=== PATIENT | female | born 1955 | race Caucasian/White ===

== ENCOUNTER 2016-04-27 00:58 | Inpatient (IN) | payer OTHER ==
[~2016-04-27] VITALS: Ht 157.5 cm; Wt 83.0 kg
[~2016-04-27 00:58] MED LIST: UNRESOLVED CLARIFICATION ENTRY XX SCH
[2016-04-27] MEDS ORDERED: IPRATROPIUM 0.5MG/ALBUTEROL 2.5MG INH SOL UD 3ML (DUONEB)(J7620) As Ordered ONE ×2 (01:23→04:25)
[2016-04-27] MEDS ORDERED: ASPIRIN 81 MG CHEW TABLET As Ordered ONE (01:24)
[2016-04-27] MEDS ORDERED: methylPREDNISolone INJ 125 MG/2 ML VIAL (J2930) As Ordered ONE (01:24)
[2016-04-27 01:31] LABS: BASO % 0.5 % (0.0-1.0); EOS # 0.1 K/mm3 (0.0-0.50); EOS % 0.7 % (0.0-3.0); LARGE UNSTAINED CELL # 0.2 K/mm3 (0.0-0.4); LARGE UNSTAINED CELL % 1.8 % (0.0-4.0); LYMPH # 1.2 K/mm3 (1.5-4.5); MEAN CORPUSCULAR HEMOGLOBIN 28.9 pg (27.0-33.0); MEAN CORPUSCULAR VOLUME 87.6 fl (80.0-96.0); MONO # 0.3 K/mm3 (0.0-0.8); MONO % 2.6 % (0.0-5.0); NEUTROPHILS # 8.2 K/mm3 (1.8-7.7); NEUTROPHILS % 82.4 % (36.0-66.0); PLATELET COUNT, AUTOMATED 304 k/mm3 (150-450); RED CELL DISTRIBUTION WIDTH 13.4 % (11.5-14.5); WHITE BLOOD COUNT 9.9 K/mm3 (4.0-10.0)
[2016-04-27 01:37] LABS: ABG BASE EXCESS -0.2 (-2.0-2.0); ABG DEVICE NASAL CANN; ABG HCO3 26.9 MEQ/L (22.0-26.0); ABG PARTIAL PRESSURE CO2 53.8 mmHg (35.0-45.0); ABG PARTIAL PRESSURE O2 75.8 mmHg (75.0-100.0); ABG STANDARD HCO3 24.3 MEQ/L (22.0-26.0); ABG TOTAL CO2 28.6 MEQ/L (23.0-31.0); ABG pH (ARTERIAL) 7.317 UNITS (7.350-7.450)
[2016-04-27 01:57] LABS: ANION GAP 10 MEQ/L (8-16); BLOOD UREA NITROGEN 10 MG/DL (7-18); CALCIUM LEVEL 8.5 MG/DL (8.8-10.2); CARBON DIOXIDE LEVEL 26 MEQ/L (21-32); CHLORIDE LEVEL 104 MEQ/L (98-107); CREATININE FOR GFR 0.98 MG/DL (0.55-1.02); GLOMERULAR FILTRATION RATE > 60.0 (>45); GLUCOSE, FASTING 141 MG/DL (80-110); POTASSIUM SERUM 3.8 MEQ/L (3.5-5.1); SODIUM LEVEL 140 MEQ/L (136-145)
--- NOTE | 2016-04-27 02:44 | REP ---
Clinical: Chest pain . Comparison: 08/30/2015 . Findings: The mediastinum and cardiac silhouette are stable and within normal limits for portable technique. The lung deleon are clear without acute consolidation, effusion, or pneumothorax. Skeletal structures are intact. Impression: Normal portable chest x-ray Signed by Desmond Vivas MD 04/27/2016 02:35 A
[2016-04-27] MEDS ORDERED: SYNT175T2 PO (03:27)
[2016-04-27] MEDS ORDERED: BUPR15TASR PO (03:27)
[2016-04-27] MEDS ORDERED: ALBU17IN INH (03:27)
[2016-04-27] MEDS ORDERED: FURO40TA2 PO (03:27)
[2016-04-27] MEDS ORDERED: IPRATROPIUM 0.5MG/ALBUTEROL 2.5MG INH SOL UD 3ML (DUONEB)(J7620) NEB PRN (03:30)
[2016-04-27] MEDS ORDERED: FUROSEMIDE 20 MG/2 ML VIAL (J1940) IV ONE (03:30)
[2016-04-27] MEDS ORDERED: LOSA50TA20 PO (03:42)
--- NOTE | 2016-04-27 04:04 | HPEPDOC ---
General Date of Admission Primary Care Physician: LIGIA HINOJOSA DO Attending Physician: GENNA RIGGINS Chief Complaint The patient is a 60-year-old female admitted with a reason for visit of Breathing Difficulty Source: Patient Exam Limitations: No limitations History of Present Illness Ms. Conley is a 60-year-old female who presented to the emergency department with progressive shortness of breath. She states that she, her , her son, and her granddaughter have all come down with a respiratory illness over the weekend. The remainder of them have been improving, however she has been getting progressively worse, and this has settled into her chest. She mentions that this happened last year's well, and she went to the urgent care where she received steroids and a Ventolin inhaler and improved, it was her plan to go to urgent care in the morning, but she is feeling so poorly she decided to be seen earlier. At baseline she is usually able to accomplish all of her tasks of daily living without any restrictions, she does not walk with any supportive devices, she does not use oxygen at home. She is now so short of breath, that she is unable to even take a few steps. As a matter fact she cannot speak in full sentences at this time, and she is continually coughing throughout our interview. She does admit that she is able to bring up some yellowish stuff with her cough , however she does have a chronic cough that also is productive on occasion. She has been told in the past that she has COPD, but she is not on any maintenance inhalers, and unless she gets sick, she essentially never uses her rescue inhaler, it has been about one year since the last time she has used her rescue inhaler. She does believe that she may have some subjective fevers and chills, but does not have a thermometer at home. She has not had any night sweats. Normally she is able to sleep laying down, but she has experienced orthopnea in the past few days, but she does admit that she has not been taking her home dose of Lasix for the past few days either because she has been feeling poorly. Her unrelenting cough has caused her to have some nausea, but she has not vomited. Otherwise, the remainder of her review of systems is negative. Home Medications Scheduled Bupropion HCl (Bupropion HCl Sr) 150 Mg Tab 150 MG PO DAILY (Reported) Furosemide (Furosemide) 40 Mg Tab 40 MG PO BID (Reported) Levothyroxine Sodium (Synthroid) 175 Mcg Tab 175 MCG PO DAILY (Reported) Losartan Potassium (Losartan Potassium) 50 Mg Tab 50 MG PO DAILY (Reported) Scheduled PRN Albuterol Sulfate (Ventolin Hfa) 200 Puff/8 Gm Aers 2 PUFF INH Q4H PRN PRN SHORTNESS OF BREATH (Reported) Allergies Coded Allergies: No Known Allergies (Unverified , 04/27/16) Past Medical History Medical History COPD Hypothyroidism Chronic bilateral lower extremity edema Surgical History Tubal ligation Right wrist surgery for a traumatic broken wrist Right elbow surgery for what sounds like a nerve decompression Family History Family History She has 6 siblings, all of whom are healthy with the exception of one sister who has COPD. Her father drowned in his 80s, his boat capsized and he didn't know how to swim. Her mother in her 80s, she was a diabetic. Otherwise, she has 4 children who are all healthy. Social History * Smoker: current smoker (still smoking about three quarters of a pack per day. She started smoking at the age of 15) Alcohol: denies Drugs: denies Recent Travel/Sick Contacts: Reports: Recent sick contacts, Denies: Recent travel Psychosocial History: No pertinent psych hx Review of Symptoms Other systems Please see the HPI for review of systems. Physical Examination General Exam: Positive: Alert, Cooperative, Moderate Distress, Other (unable to speak in full sentences, however, she is only using accessory muscles when the monitor sounds an alert for low oxygen) Eye Exam: Positive: Conjunctiva & lids normal, EOMI, Negative: Sclera icteric ENT Exam: Positive: Atraumatic, Mucous membr. moist/pink, Pharynx Normal Neck Exam: Positive: Supple, Negative: JVD, thyromegaly Chest Exam: Positive: Other (prolonged expiratory phase), Wheezing (moderate expiratory wheezing in all lung deleon) Heart Exam: Positive: Normal S1, Normal S2, Rate Normal, Regular Rhythm, Negative: Murmurs, Rubs Telemetry: Positive: No significant arrhythmia Abdomen Exam: Positive: Normal bowel sounds, Soft, Negative: Hepatospenomegaly, Tenderness Extremity Exam: Positive: Edema (1+ pitting edema to just above the ankles), Normal pulses, Negative: Clubbing, Cyanosis, Tenderness Skin Exam: Positive: Nl turgor and temperature, Negative: Breakdown, Lesion Psych Exam: Positive: Memory Intact, Mental status NL, Mood NL, Oriented x 3, Negative: Anxiety Vital Signs Blood pressure 138/65, pulse 108, respirations 32, temperature 98.6, pulse ox is 91% on 4 L nasal cannula, weight 84 kg, height 5 feet 2 inches, body mass index 34 Laboratory Data Labs 24H Laboratory Tests 2 04/27/16 01:23: Anion Gap 10, B-Type Natriuretic Peptide 43.3, White Blood Count 9.9, Red Blood Count 4.79, Hemoglobin 13.9, Hematocrit 41.9, Mean Corpuscular Volume 87.6, Mean Corpuscular Hemoglobin 28.9, Mean Corpuscular Hemoglobin Concent 33.0, Red Cell Distribution Width 13.4, Platelet Count 304, Neutrophils (%) (Auto) 82.4H, Lymphocytes (%) (Auto) 12.0L, Monocytes (%) (Auto) 2.6, Eosinophils (%) (Auto) 0.7, Basophils (%) (Auto) 0.5, Neutrophils # (Auto) 8.2H, Lymphocytes # (Auto) 1.2L, Monocytes # (Auto) 0.3, Eosinophils # (Auto) 0.1, Basophils # (Auto) 0.0, Blood Urea Nitrogen 10, Creatinine 0.98, Sodium Level 140, Potassium Level 3.8, Chloride Level 104, Carbon Dioxide Level 26, Calcium Level 8.5L, Total Creatine Kinase 213H, Creatine Kinase MB 3.2, Creatine Kinase MB Relative Index 1.50, Glomerular Filtration Rate > 60.0, Lactic Acid Level 1.6, Large Unclassified Cells # 0.2, Large Unclassified Cells % 1.8, Troponin I 0.02 04/27/16 01:31: Arterial Blood pH 7.317L, Arterial Blood Partial Pressure CO2 53.8H, Arterial Blood Partial Pressure O2 75.8, Arterial Blood Total CO2 28.6, Arterial Blood HCO3 26.9H, Arterial Blood Base Excess -0.2, Arterial Blood Oxygen Saturation 94.1L, Blood Gas Bicarbonate Standard 24.3, Oxygen Delivery Device NASAL KISHAN CBC/BMP Laboratory Tests 04/27/16 01:23 Calcium Level 8.5 L, Total Creatine Kinase 213 H, Red Blood Count 4.79, Mean Corpuscular Volume 87.6, Mean Corpuscular Hemoglobin 28.9, Mean Corpuscular Hemoglobin Concent 33.0, Red Cell Distribution Width 13.4, Neutrophils (%) (Auto ) 82.4 H, Lymphocytes (%) (Auto) 12.0 L, Monocytes (%) (Auto) 2.6, Eosinophils ( %) (Auto) 0.7, Basophils (%) (Auto) 0.5, Neutrophils # (Auto) 8.2 H, Lymphocytes # (Auto) 1.2 L, Monocytes # (Auto) 0.3, Eosinophils # (Auto) 0.1, Basophils # (Auto) 0.0 Microbiology Microbiology 04/27/16 Blood Culture, Received Pending 04/27/16 Blood Culture, Received Pending (1) COPD exacerbation Status: Acute (2) Hypothyroidism Status: Chronic Assessment & Plan: Continue with home dose of Synthroid (3) Bilateral lower extremity edema Status: Chronic Assessment & Plan: She reports that she was referred to see a inspector glass or mirror ( whose name she cannot remember) within the past year, and an echocardiogram was performed in his office, and she was told that everything was normal. Plan / VTE VTE Prophylaxis Ordered?: Yes (Lovenox) Plan Plan Will admit the patient to [facility]. We will start her on DuoNeb's every 4 hours with every 2 PRN, Solu-Medrol 60 mg every 12 hours, Mucinex twice a day. Because she is afebrile, does not have any leukocytosis, and she does not have any infiltrates or pleural effusions on her chest x-ray, I suspect that this acute exacerbation of COPD may have been triggered by a viral respiratory illness. I do not see a need for empiric antibiotics at this time. A respiratory panel would not change our plan of treatment, however we will check her for influenza, as this may have a bearing on her treatment plan if it comes up positive. She has begun to develop some bilateral lower extremity edema, which she feels is because she has not taken her Lasix in a few days secondary to feeling poorly. Her BNP is negative, however, we will give her a one-time dose of Lasix 40 mg IV tonight, and then have her resume her home dose of Lasix 40 mg by mouth twice a day in the morning. She is also taking bupropion in an effort to quit smoking, we will continue her on the same dose. GME ATTESTATION GME ATTESTATION My preceptor for this patient encounter was physically present in the building during the encounter and was fully available. As needed, all aspects of the patient interview, examination, medical decision making process, and medical care plan development were reviewed and approved by the preceptor. Preceptor is aware and concurs with the plan as stated in the body of this note and will attest to such by his/her cosignature. ATTENDING NOTE I, Genna Riggins, have seen and examined the above patient and agree with the plan as documented by Dr. Davenport. CAREN DAVENPORT DO Apr 27, 2016 04:04 GENNA RIGGINS Apr 27, 2016 06:02
[2016-04-27 04:20] VITALS: O2SAT 95
[2016-04-27] MEDS: IPRATROPIUM 0.5MG/ALBUTEROL 2.5MG INH SOL UD 3ML (DUONEB)(J7620) NEB SCH ×6 (04:27→23:12)
--- NOTE | 2016-04-27 04:58 | EDDOCDS ---
Physician Documentation [facility] Name: Deanne Conley Age: 60 yrs Sex: Female : 1955 Arrival Date: 04/27/2016 Time: 00:58 Bed 11 Private MD: Disposition: 04/27/16 02:20 Hospitalization ordered by Genna Riggins for Inpatient Admission. Preliminary diagnosis is Chronic obstructive pulmonary disease with (acute) exacerbation. - Bed requested for 4 [place]. - Status is Inpatient Admission. kas2 - Condition is Stable. - Problem is an acute exacerbation. - Symptoms are unchanged. Historical: - Allergies: No known drug Allergies; - Home Meds: 1. levothyroxine 175 mcg Oral tab 1 tab once daily 2. Lasix 40 mg Oral tab 1 tab 2 times per day 3. potassium chloride Unknown Oral once daily 4. Mey-D 12 Hour 60-120 mg Oral Tb12 1 tab 2 times per day - PMHx: COPD; Hypothyroidism; CHF; - PSHx: Tubal ligation; wrist - right; - Social history: Smoking status: Patient uses tobacco products, heavy tobacco smoker. Ethnicity: No barriers to communication noted, The patient speaks fluent Mongolian, Speaks appropriately for age. - Family history: Not pertinent. - : The pt / caregiver states he / she is not on anticoagulants. Home medication list is obtained from the patient. - Exposure Risk Screening:: None identified. Vital Signs: 04/27 01:08 BP 172 / 75; Pulse 107; Resp 32; Temp 98.6(T); Pulse Ox 85% on R/A; Weight 83.46 kg / nn1 184 lbs; Height 5 ft. 2 in. (157.48 cm); Pain 0/10; 01:28 BP 149 / 99 (auto/); kas2 01:28 Pulse 112 MON; Pulse Ox 91% ; kas2 01:43 BP 149 / 63 (auto/); kas2 01:43 Pulse 104 MON; Pulse Ox 98% ; kas2 01:58 BP 132 / 58 (auto/); kas2 01:58 Pulse 108 MON; Pulse Ox 94% ; kas2 02:13 BP 138 / 65 (auto/); kas2 02:13 Pulse 108 MON; Pulse Ox 93% ; kas2 02:28 BP 139 / 65 (auto/); kas2 02:28 Pulse 104 MON; Pulse Ox 92% ; kas2 02:43 BP 149 / 65 (auto/); kas2 02:43 Pulse 106 MON; Pulse Ox 92% ; kas2 03:09 BP 115 / 64 (auto/); kas2 03:09 Pulse 102 MON; Pulse Ox 93% ; kas2 03:13 BP 120 / 68 (auto/); kas2 03:13 Pulse 100 MON; Pulse Ox 93% ; kas2 03:28 Resp 20; Temp 97.6(O); Pain 2/10; kas2 03:28 BP 125 / 64 (auto/); kas2 03:28 Pulse 104 MON; Pulse Ox 93% ; kas2 03:43 BP 128 / 66 (auto/); kas2 03:43 Pulse 98 MON; Pulse Ox 95% ; kas2 03:59 BP 128 / 66; Pulse 98; Resp 24; Temp 97.9(O); Pulse Ox 95% on 4 lpm NC; Pain 0/10; kas2 04:27 BP 128 / 65; Pulse 92; Resp 24; Pulse Ox 96% 4 lpm ; Pain 0/10; kas2 01:08 Body Mass Index 33.65 (83.46 kg, 157.48 cm) nn1 MDM: 01:01 [place]inell Tester/Pulse Ox/q 30 min VS ordered. br1 01:01 IV Saline Lock ordered. br1 01:01 Rhythm Strip to chart ordered. br1 01:01 Undress patient appropriately for examination ordered. br1 01:03 Basic Metabolic Profile Ordered. EDMS 01:03 CBC with Diff Ordered. EDMS 01:03 Cardiac Injury Profile Ordered. EDMS 01:03 Troponin Ordered. EDMS 01:03 portable chest Ordered. EDMS 01:03 ECG WITH READING ER PHYS+CARDIAG ordered. EDMS 01:13 -Blood Culture (Adults Only), peripheral from different site, or from device/port/PICC br1 etc. if present ordered. 01:13 BNP Ordered. EDMS 01:13 -Blood Culture Ordered. EDMS 01:13 Lactic Acid (Bustamante tube on ice) Ordered. EDMS 01:13 Oxygen at 4L/Min NC or Home dosage ordered. br1 01:18 Albuterol-Ipratropium 1 neb Nebulizer every 20 minutes x3 ordered. br1 01:18 Call Respiratory ordered. br1 01:18 Solu-MEDROL 125 mg IVP once ordered. br1 01:19 -Arterial Blood Gas Ordered. EDMS 01:19 Call Respiratory complete. tmm1 01:20 -Blood Culture (Adults Only), peripheral from different site, or from device/port/PICC tmm1 etc. if present complete. 01:21 BLOOD CULTURES Ordered. EDMS 01:21 Aspirin 324 mg PO once ordered. br1 01:46 Financial registration complete. pm4 01:52 [facility] Payment Agreement was scanned into [employer] and attached to record. pm4 01:55 CBC with Diff Reviewed. br1 01:55 -Arterial Blood Gas Reviewed. br1 01:55 BNP Reviewed. br1 01:55 Lactic Acid (Bustamante tube on ice) Reviewed. br1 02:10 Basic Metabolic Profile Reviewed. br1 02:10 Cardiac Injury Profile Reviewed. br1 02:10 Troponin Reviewed. br1 02:13 BED REQUEST+ADM ordered. EDMS 03:28 Admission / Observation Status ordered. EDMS 03:28 REGULAR DIET ordered. EDMS 03:29 BASIC METABOLIC PROFILE Ordered. EDMS 03:29 COMPLETE BLOOD COUNT Ordered. EDMS 04:01 INFLUENZA A&B RAPID ANTIGEN Ordered. EDMS Administered Medications: 01:29 Drug: Solu-MEDROL 125 mg [Solu-Medrol 500 mg intravenous solution (125 mg)] Route: IVP; kas2 Site: left antecubital; 01:29 Drug: Aspirin 324 mg [aspirin 81 mg chewable tablet (4 tabs)] Route: PO; kas2 01:30 Drug: Albuterol-Ipratropium 1 neb [ipratropium-albuterol 0.5 mg-3 mg(2.5 mg base)/3 mL jc3 nebulization soln (1 neb)] Route: Nebulizer; 01:36 Drug: Albuterol-Ipratropium 1 neb [ipratropium-albuterol 0.5 mg-3 mg(2.5 mg base)/3 mL jc3 nebulization soln (1 neb)] Route: Nebulizer; 01:51 Drug: Albuterol-Ipratropium 1 neb [ipratropium-albuterol 0.5 mg-3 mg(2.5 mg base)/3 mL jc3 nebulization soln (1 neb)] Route: Nebulizer; Signatures: Dispatcher [employer] SASHA Guevara , Nancy RN RN Sudhir Galaviz MD MD br1 George, Kelly, THERMOFORMING MACHINE OPERATOR THERMOFORMING MACHINE OPERATOR tmm1 Gricel HolmRN RN nn1 Maty Calderón RN RN kas2 Efraín Antony, Reg Reg pm4 Usman Downey jc3 The chart was reviewed and I authenticate all verbal orders and agree with the evaluation and treatment provided.Attachments: 01:52 [facility] Payment Agreement pm4 MTDD
--- NOTE | 2016-04-27 04:58 | EDDOCDS ---
Nurse's Notes [facility] Name: Deanne Conley Age: 60 yrs Sex: Female : 1955 Arrival Date: 04/27/2016 Time: 00:58 Bed 11 Private MD: Diagnosis: Chronic obstructive pulmonary disease with (acute) exacerbation Presentation: 04/27 01:02 Presenting complaint: Patient states: patient reports she began having cold symptoms nn1 Monday. Patient reports shortness of breath becoming progressively worse tonight, difficulty ambulating due to this. Patient denies chest pain at this time. Reports palpitations earlier in the day. Presenting complaint: Patient reports she did not take home medications today. Aspirin was not taken prior to arrival. Suicide/Homicide risk assessment- the patient denies having any suicidal and/or homicidal ideations and does not present with any other emotional, behavioral or mental health complaints. Status: Patient is not a community service patrol officer or dependent. Transition of care: patient was not received from another setting of care. 01:02 Acuity: TANK Level 3 nn1 01:02 Method Of Arrival: Wheelchair nn1 01:09 Adult Sepsis Screening: The patient does not have new or worsening altered mentation. nn1 Patient has a respiratory rate of greater than or equal to 22 (1 point). Systolic blood pressure is greater than 100. Patient has a qSOFA score of 1- Negative Sepsis Screen. 01:18 Acuity level changed due to complexity of care. lf1 01:18 Acuity: TANK Level 2 lf1 Triage Assessment: 01:07 General: Appears uncomfortable. Pain: Denies pain. HIV screening NA for this visit nn1 Offered previously. The patient is triaged at the bedside. See Assessment in Nurses Notes section of ED record. Neurological: Level of Consciousness is awake, alert, obeys commands. Cardiovascular: Capillary refill < 3 seconds Chest pain is denied. Respiratory: Airway is patent Respiratory effort is even, labored, Respiratory pattern is regular, Breath sounds are coarse Breath sounds are diminished Breath sounds with wheezes expiratory bilaterally. Derm: Skin is pink, warm & dry. Historical: - Allergies: No known drug Allergies; - Home Meds: 1. levothyroxine 175 mcg Oral tab 1 tab once daily 2. Lasix 40 mg Oral tab 1 tab 2 times per day 3. potassium chloride Unknown Oral once daily 4. Mey-D 12 Hour 60-120 mg Oral Tb12 1 tab 2 times per day - PMHx: COPD; Hypothyroidism; CHF; - PSHx: Tubal ligation; wrist - right; - Social history: Smoking status: Patient uses tobacco products, heavy tobacco smoker. Ethnicity: No barriers to communication noted, The patient speaks fluent Spanish, Speaks appropriately for age. - Family history: Not pertinent. - : The pt / caregiver states he / she is not on anticoagulants. Home medication list is obtained from the patient. - Exposure Risk Screening:: None identified. Screenin:31 Screening information is obtained from the patient. Fall risk: No risks identified. kas2 Assistance ADL's: requires no assistance with activities of daily living. Abuse/DV Screen: The patient / caregiver reports he/she is: not in a situation that causes fear, pain or injury. Nutritional screening: No deficits noted. Advance Directives: Currently, there is no health care proxy. There is no active DNR order. There is a living will, and a copy is available at this time. There is no Power of Expedition Supervisor. home support is adequate. Assessment: 01:30 General: Appears distressed, uncomfortable, well nourished, well groomed, Behavior is kas2 anxious, cooperative. Pain: Location: chest pain Pain currently is 8 out of 10 on a pain scale. Pain does not radiate. Quality of pain is described as pressure, sharp. Neurological: Level of Consciousness is awake, alert, Oriented to person, place, time. Cardiovascular: Capillary refill < 3 seconds Heart tones S1 S2 present Rhythm is sinus tachycardia No ectopy. Respiratory: Airway is patent Respiratory effort is labored, with nasal flaring, pursed lip, shallow, Respiratory pattern is tachypnea Breath sounds with wheezes inspiratory expiratory bilaterally. Derm: Skin is intact, Skin is dry, Skin is pink, warm & dry. Skin temperature is warm. 02:12 General: Appears in no apparent distress, comfortable, well nourished, well groomed, kas2 Behavior is appropriate for age, cooperative. Pain: Location: chest Pain currently is 4 out of 10 on a pain scale. Neurological: Level of Consciousness is awake, alert, Oriented to person, place, time. Cardiovascular: Rhythm is sinus tachycardia No ectopy. Respiratory: Airway is patent Respiratory effort is even, unlabored, Respiratory pattern is regular, symmetrical. Derm: Skin is intact, Skin is dry, Skin is pink, warm & dry. Skin temperature is warm. 03:18 General: Patient sitting in bed watching TV. Airway patent and respiratory effort even kas2 and unlabored. Patient remains on 4Lnp. No distress noted. Appears comfortable. VSS. Call laurent within reach. Will continue to monitor.. 04:00 General: Appears in no apparent distress, comfortable, well nourished, well groomed, kas2 Behavior is appropriate for age, cooperative. Pain: Denies pain. Neurological: Level of Consciousness is awake, alert, Oriented to person, place, time. Cardiovascular: Rhythm is sinus tachycardia No ectopy. Respiratory: Airway is patent Respiratory effort is even, unlabored, Respiratory pattern is regular, symmetrical. Derm: Skin is intact, Skin is dry, Skin is pink, warm & dry. Skin temperature is warm. Vital Signs: 01:08 BP 172 / 75; Pulse 107; Resp 32; Temp 98.6(T); Pulse Ox 85% on R/A; Weight 83.46 kg; nn1 Height 5 ft. 2 in. (157.48 cm); Pain 0/10; 01:28 BP 149 / 99 (auto/); kas2 01:28 Pulse 112 MON; Pulse Ox 91% ; kas2 01:43 BP 149 / 63 (auto/); kas2 01:43 Pulse 104 MON; Pulse Ox 98% ; kas2 01:58 BP 132 / 58 (auto/); kas2 01:58 Pulse 108 MON; Pulse Ox 94% ; kas2 02:13 BP 138 / 65 (auto/); kas2 02:13 Pulse 108 MON; Pulse Ox 93% ; kas2 02:28 BP 139 / 65 (auto/); kas2 02:28 Pulse 104 MON; Pulse Ox 92% ; kas2 02:43 BP 149 / 65 (auto/); kas2 02:43 Pulse 106 MON; Pulse Ox 92% ; kas2 03:09 BP 115 / 64 (auto/); kas2 03:09 Pulse 102 MON; Pulse Ox 93% ; kas2 03:13 BP 120 / 68 (auto/); kas2 03:13 Pulse 100 MON; Pulse Ox 93% ; kas2 03:28 Resp 20; Temp 97.6(O); Pain 2/10; kas2 03:28 BP 125 / 64 (auto/); kas2 03:28 Pulse 104 MON; Pulse Ox 93% ; kas2 03:43 BP 128 / 66 (auto/); kas2 03:43 Pulse 98 MON; Pulse Ox 95% ; kas2 03:59 BP 128 / 66; Pulse 98; Resp 24; Temp 97.9(O); Pulse Ox 95% on 4 lpm NC; Pain 0/10; kas2 04:27 BP 128 / 65; Pulse 92; Resp 24; Pulse Ox 96% 4 lpm ; Pain 0/10; kas2 01:08 Body Mass Index 33.65 (83.46 kg, 157.48 cm) nn1 Vitals: 01:08 Log In Time: April 27, 2016 at 01:01. nn1 ED Course: 01:00 Patient visited by Rosa Starr Reg. hs2 01:00 Patient moved to Waiting hs2 01:01 Sudhir Mello MD is Attending Physician. br1 01:05 Triage Initiated nn1 01:10 Maty Calderón RN is Primary Nurse. nn1 01:10 Patient moved to 11 nn1 01:10 awake overnight monitor on. Pulse ox on. NIBP on. kas2 01:10 The patient / caregiver is instructed regarding the plan of care and ED course. kas2 01:18 Patient visited by Sudhir Mello MD. br1 01:23 EKG done. (by ED staff). Reviewed by Sudhir Mello MD. jmv 01:24 Patient visited by Antonio Rivera PCA. jmv 01:29 Patient visited by Antonio Rivera PCA. jmv 01:32 Patient visited by Maty Calderón RN. kas2 01:32 Inserted saline lock: 18 gauge in left antecubital area and blood collected. The kas2 patient tolerated the procedure well. No procedures done that require assistance. 01:36 -Arterial Blood Gas Sent. jc3 01:52 [place] Payment Agreement was scanned into [employer] and attached to record. pm4 02:10 BLOOD CULTURES Sent. jmv 02:19 Patient visited by Maty Calderón RN. kas2 02:20 Genna Riggins is Hospitalizing Provider. br1 03:00 portable chest Returned. EDMS 03:24 Patient visited by Maty Calderón RN. kas2 03:28 Patient visited by Maty Calderón RN. kas2 04:44 Patient visited by Maty Calderón RN. [facility] Administered Medications: 01:29 Drug: Solu-MEDROL 125 mg [Solu-Medrol 500 mg intravenous solution (125 mg)] Route: IVP; [facility] Site: left antecubital; 01:29 Drug: Aspirin 324 mg [aspirin 81 mg chewable tablet (4 tabs)] Route: PO; [facility] 01:30 Drug: Albuterol-Ipratropium 1 neb [ipratropium-albuterol 0.5 mg-3 mg(2.5 mg base)/3 mL jc3 nebulization soln (1 neb)] Route: Nebulizer; 01:36 Drug: Albuterol-Ipratropium 1 neb [ipratropium-albuterol 0.5 mg-3 mg(2.5 mg base)/3 mL jc3 nebulization soln (1 neb)] Route: Nebulizer; 01:51 Drug: Albuterol-Ipratropium 1 neb [ipratropium-albuterol 0.5 mg-3 mg(2.5 mg base)/3 mL jc3 nebulization soln (1 neb)] Route: Nebulizer; RT: 01:35 ABG's drawn from right radial artery pressure held for 5 minutes no bleeding noted jc3 pressure bandage applied specimen sent pt. tolerated well. Initial Med Neb Given as ordered. O2 via nasal cannula \T\ 5L/min. Respiratory: Airway is patent Respiratory effort is labored, Respiratory pattern is tachypnea Breath sounds are coarse bilaterally. Breath sounds with crackles bilaterally. Breath sounds with wheezes bilaterally. at expiration. 01:51 Subsequent Med Neb Given as ordered. Respiratory: Breath sounds are coarse Breath jc3 sounds with crackles Breath sounds with wheezes bilaterally. at expiration at inspiration. Order Results: Lab Order: Basic Metabolic Profile; SPEC'M 04/27/16 01:23 Test: GLUCOSE, FASTING; Value: 141; Range: 80-110; Abnormal: Above high normal; Units: MG/DL; Status: F Test: BLOOD UREA NITROGEN; Value: 10; Range: 7-18; Units: MG/DL; Status: F Test: CREATININE FOR GFR; Value: 0.98; Range: 0.55-1.02; Units: MG/DL; Status: F Test: GLOMERULAR FILTRATION RATE; Value: > 60.0; Range: >45; Status: F Test: SODIUM LEVEL; Value: 140; Range: 136-145; Units: MEQ/L; Status: F Test: POTASSIUM SERUM; Value: 3.8; Range: 3.5-5.1; Units: MEQ/L; Status: F Test: CHLORIDE LEVEL; Value: 104; Range: 98-107; Units: MEQ/L; Status: F Test: CARBON DIOXIDE LEVEL; Value: 26; Range: 21-32; Units: MEQ/L; Status: F Test: ANION GAP; Value: 10; Range: 8-16; Units: MEQ/L; Status: F Test: CALCIUM LEVEL; Value: 8.5; Range: 8.8-10.2; Abnormal: Below low normal; Units: MG/DL; Status: F Test Note: ; Units are mL/min/1.73 m2 Chronic Kidney Disease Staging per NKF: Stage I & II GFR >=60 Normal to Mildly Decreased Stage III GFR 30-59 Moderately Decreased Stage IV GFR 15-29 Severely Decreased Stage V GFR <15 Very Little GFR Left ESRD GFR <15 on MECHATRONICS TECHNOLOGIST Lab Order: CBC with Diff; SPEC'M 04/27/16 01:23 Test: WHITE BLOOD COUNT; Value: 9.9; Range: 4.0-10.0; Units: K/mm3; Status: F Test: RED BLOOD COUNT; Value: 4.79; Range: 4.00-5.40; Units: M/mm3; Status: F Test: HEMOGLOBIN; Value: 13.9; Range: 12.0-16.0; Units: g/dl; Status: F Test: HEMATOCRIT; Value: 41.9; Range: 36.0-47.0; Units: %; Status: F Test: MEAN CORPUSCULAR VOLUME; Value: 87.6; Range: 80.0-96.0; Units: fl; Status: F Test: MEAN CORPUSCULAR HEMOGLOBIN; Value: 28.9; Range: 27.0-33.0; Units: pg; Status: F Test: MEAN CORPUSCULAR HGB CONC; Value: 33.0; Range: 32.0-36.5; Units: g/dl; Status: F Test: RED CELL DISTRIBUTION WIDTH; Value: 13.4; Range: 11.5-14.5; Units: %; Status: F Test: PLATELET COUNT, AUTOMATED; Value: 304; Range: 150-450; Units: k/mm3; Status: F Test: NEUTROPHILS %; Value: 82.4; Range: 36.0-66.0; Abnormal: Above high normal; Units: %; Status: F Test: LYMPH %; Value: 12.0; Range: 24.0-44.0; Abnormal: Below low normal; Units: %; Status: F Test: MONO %; Value: 2.6; Range: 0.0-5.0; Units: %; Status: F Test: EOS %; Value: 0.7; Range: 0.0-3.0; Units: %; Status: F Test: BASO %; Value: 0.5; Range: 0.0-1.0; Units: %; Status: F Test: LARGE UNSTAINED CELL %; Value: 1.8; Range: 0.0-4.0; Units: %; Status: F Test: NEUTROPHILS #; Value: 8.2; Range: 1.8-7.7; Abnormal: Above high normal; Units: K/mm3; Status: F Test: LYMPH #; Value: 1.2; Range: 1.5-4.5; Abnormal: Below low normal; Units: K/mm3; Status: F Test: MONO #; Value: 0.3; Range: 0.0-0.8; Units: K/mm3; Status: F Test: EOS #; Value: 0.1; Range: 0.0-0.50; Units: K/mm3; Status: F Test: BASO #; Value: 0.0; Range: 0.0-0.2; Units: K/mm3; Status: F Test: LARGE UNSTAINED CELL #; Value: 0.2; Range: 0.0-0.4; Units: K/mm3; Status: F Lab Order: Cardiac Injury Profile; SPEC'M 04/27/16 01:23 Test: CPK CREATINE PHOSPHOKINASE; Value: 213; Range: 26-192; Abnormal: Above high normal; Units: U/L; Status: F Test: CK-MB VALUE MASS; Value: 3.2; Range: 0.0-3.6; Units: NG/ML; Status: F Test: MB/CK RELATIVE INDEX; Value: 1.50; Range: < OR =4; Status: F Test Note: ; DIAGNOSIS CRITERIA MMB ng/ml Relative Index (RI) NON-AMI < or = 5 N/A BUSTAMANTE ZONE > 5 < or = 4 AMI > 5 > 4 Lab Order: Troponin; SPEC'M 04/27/16:23 Test: TROPONIN I; Value: 0.02; Range: < 0.10; Units: NG/ML; Status: F Test Note: ; Troponin I Reference Interval for Zeetl LOCI: 99th Percentile= 0.00-0.045 ng/ml Risk Stratification: <= 0.10 ng/ml Decreased Risk for Adverse Clinical Events. 0.10-1.50 ng/ml Increased Risk for Adverse Clinical Events. Evaluation of additional criterion and/or repeat testing in 2-6 hours is suggested to rule out myocardial damage. >= 1.50 ng/ml Indicative of Myocardial Injury. Lab Order: BNP; SPEC'04/27/16 01:23 Test: BRAIN NATRIURETIC PEPTIDE; Value: 43.3; Range: <100; Units: PG/ML; Status: F Lab Order: Lactic Acid (Bustamante tube on ice); SPEC04/27/16 01:23 Test: LACTIC ACID LEVEL, LACTATE; Value: 1.6; Range: 0.4-2.0; Units: MMOL/L; Status: F Lab Order: -Arterial Blood Gas; SPEC04/27/16 01:31 Test: ABG pH (ARTERIAL); Value: 7.317; Range: 7.350-7.450; Abnormal: Below low normal; Units: UNITS; Status: F Test: ABG PARTIAL PRESSURE CO2; Value: 53.8; Range: 35.0-45.0; Abnormal: Above high normal; Units: mmHg; Status: F Test: ABG PARTIAL PRESSURE O2; Value: 75.8; Range: 75.0-100.0; Units: mmHg; Status: F Test: ABG TOTAL CO2; Value: 28.6; Range: 23.0-31.0; Units: MEQ/L; Status: F Test: ABG HCO3; Value: 26.9; Range: 22.0-26.0; Abnormal: Above high normal; Units: MEQ/L; Status: F Test: ABG BASE EXCESS; Value: -0.2; Range: -2.0-2.0; Status: F Test: ABG STANDARD HCO3; Value: 24.3; Range: 22.0-26.0; Units: MEQ/L; Status: F Test: ABG O2 SATURATION; Value: 94.1; Range: 95.0-99.0; Abnormal: Below low normal; Units: %; Status: F Test: ABG DEVICE; Value: NASAL KISHAN; Status: F Radiology Order: portable chest Test: portable chest REASON FOR EXAMINATION: Chest Pain; Clinical: Chest pain .; ; Comparison: 08/30/2015 .; ; Findings:; The mediastinum and cardiac silhouette are stable and within normal limits for; portable technique. The lung deleon are clear without acute consolidation,; effusion, or pneumothorax. Skeletal structures are intact.; ; Impression:; Normal portable chest x-ray; ; ; Signed by; Desmond Vivas MD 04/27/2016 02:35 A; Outcome: 02:20 Decision to Hospitalize by Provider. br1 04:05 Discharge Assessment: patient administered narcotics - no. The following High Risk kas2 Discharge criteria are identified: None. Admitted to Med/Surg accompanied by tech, via stretcher, with oxygen, with chart. Condition: good Condition: stable Condition: improved. CT Study completed. Property :Personal belongings accompany Pt. 04:57 Patient left the ED. kas2 Signatures: Dispatcher [employer] EDTX Clarissa Flowers RN RN lf1 Sudhir Mello MD MD br1 Usman Downey3 Gricel HolmRN RN nn1 Rosa Starr, Reg Reg hs2 Maty Calderón RN RN kas2 Antonio Rivera, UPHOLSTERY ESTIMATOR UPHOLSTERY ESTIMATOR jmv Efraín Antony, Reg Reg pm4 Corrections: (The following items were deleted from the chart) 01:09 01:02 Adult Sepsis Screening: The patient does not have new or worsening altered nn1 mentation. nn1 01:09 01:02 Adult Sepsis Screening: Systolic blood pressure is greater than 100. Patient has nn1 a qSOFA score of 0- Negative Sepsis Screen. nn1 MTDD
[2016-04-27 05:03] VITALS: BP 128/71
[2016-04-27] MEDS: LEVOTHYROXINE 0.125 MG TAB (125 MCG) PO SCH (05:38)
[2016-04-27] MEDS: LEVOTHYROXINE 0.05 MG TAB (50 MCG) PO SCH (05:38)
[2016-04-27 06:52] LABS: MEAN CORPUSCULAR HEMOGLOBIN 29.5 pg (27.0-33.0); MEAN CORPUSCULAR HGB CONC 33.6 g/dl (32.0-36.5); MEAN CORPUSCULAR VOLUME 87.6 fl (80.0-96.0); RED CELL DISTRIBUTION WIDTH 13.4 % (11.5-14.5); WHITE BLOOD COUNT 8.7 K/mm3 (4.0-10.0)
[2016-04-27 07:01] LABS: CALCIUM LEVEL 8.4 MG/DL (8.8-10.2); CREATININE FOR GFR 1.36 MG/DL (0.55-1.02); GLOMERULAR FILTRATION RATE 42.1 (>45); POTASSIUM SERUM 3.5 MEQ/L (3.5-5.1)
[2016-04-27] MEDS ORDERED: LOSARTAN 50 MG TAB PO SCH (09:00)
[2016-04-27] MEDS ORDERED: FUROSEMIDE 40 MG TAB PO SCH (09:00)
[2016-04-27] MEDS: buPROPion **SR TABLET** (ZYBAN) 150MG PO SCH (09:55)
[2016-04-27] MEDS: guaiFENesin ER 600 MG TAB PO SCH ×2 (09:55→20:45)
[2016-04-27] MEDS: ENOXAPARIN 40 MG/0.4 ML SYRINGE (J1650) SC SCH (09:56)
[2016-04-27 10:00] VITALS: BP 102/55
[2016-04-27] MEDS: methylPREDNISolone INJ 125 MG/2 ML VIAL (J2930) IV SCH ×2 (11:37→23:46)
[2016-04-27 14:11] VITALS: BP 122/75
[2016-04-27 22:00] VITALS: BP 130/61
[2016-04-28] MEDS: IPRATROPIUM 0.5MG/ALBUTEROL 2.5MG INH SOL UD 3ML (DUONEB)(J7620) NEB SCH ×6 (02:23→19:49)
[2016-04-28 06:00] VITALS: BP 117/59
[2016-04-28] MEDS: LEVOTHYROXINE 0.125 MG TAB (125 MCG) PO SCH (06:33)
[2016-04-28] MEDS: LEVOTHYROXINE 0.05 MG TAB (50 MCG) PO SCH (06:33)
--- NOTE | 2016-04-28 06:41 | ECGEPIP ---
Stationary ECG Study [facility] - ED Test Date: 2016-04-27 Pat Name: MICAH OROPEZA Department: Room: [place] [address] Gender: F Patient Support Tech: butch : 1955 Requested By: MEDARDO Damon Order Number: [id number] Reading MD: Kira Tan Measurements Intervals [place] Rate: 105 P: 84 WA: 137 QRS: 64 QRSD: 80 T: 79 QT: 354 QTc: 470 Interpretive Statements SINUS TACHYCARDIA MODERATE ST DEPRESSION LOW VOLTAGE LIMB Electronically Signed On 04-28-2016 6:41:51 EST by Kira Tan
[2016-04-28 06:51] LABS: MEAN CORPUSCULAR HEMOGLOBIN 29.1 pg (27.0-33.0); MEAN CORPUSCULAR HGB CONC 32.6 g/dl (32.0-36.5); MEAN CORPUSCULAR VOLUME 89.4 fl (80.0-96.0); RED CELL DISTRIBUTION WIDTH 14.6 % (11.5-14.5); WHITE BLOOD COUNT 17.1 K/mm3 (4.0-10.0)
[2016-04-28 06:52] LABS: CALCIUM LEVEL 8.6 MG/DL (8.8-10.2); CREATININE FOR GFR 1.18 MG/DL (0.55-1.02); GLOMERULAR FILTRATION RATE 49.6 (>45); POTASSIUM SERUM 4.1 MEQ/L (3.5-5.1)
[2016-04-28] MEDS: guaiFENesin ER 600 MG TAB PO SCH ×2 (08:45→21:00)
[2016-04-28] MEDS: buPROPion **SR TABLET** (ZYBAN) 150MG PO SCH (08:45)
[2016-04-28] MEDS: ENOXAPARIN 40 MG/0.4 ML SYRINGE (J1650) SC SCH (08:46)
[2016-04-28] MEDS: ADVAIR DISKUS 250/50 INH PWD INH SCH ×2 (09:00→19:43)
--- NOTE | 2016-04-28 11:51 | IPNPDOC ---
Assessment/Plan Date Seen The patient was seen on 04/28/16. Problems Problems: (1) COPD exacerbation Status: Acute Response to Treatment: Improving Problem Text: Secondary to viral upper respiratory tract infection Continue methylprednisolone, we'll titrate as tolerated Maintain O2 between 88 and 92%, currently requiring 3 L of oxygen-we will down titrate as tolerated Continue nebulizer treatment Continue supportive treatment Patient states that her respiratory status has improved since admission, we will continue to monitor her progress (2) Hypothyroidism Status: Chronic Response to Treatment: Stable Problem Text: Continue with home dose of Synthroid (3) Depression Status: Chronic Response to Treatment: Stable Problem Text: No suicidal, homicidal ideations-mood appears to be stable Continue bupropion Plan / VTE VTE Prophylaxis Ordered?: Yes (Lovenox) Subjective Review of Systems CC/HPI The patient is a 60-year-old female admitted with a reason for visit of Copd Exacerbation. General: Denies: Chills, Night Sweats Constitutional: Denies: Chills, Fever Eyes: Denies: Pain, Vision change ENT: Denies: Ear Pain, Head Aches Skin: Denies: Lesions, Rash Pulmonary: Reports: Cough, Dyspnea, Denies: Pleuritic Chest Pain Cardiovascular: Denies: Chest Pain, Palpitations Gastrointestinal: Denies: Abdominal Pain, Nausea, Vomiting Genitourinary: Denies: Dysuria, Frequency Hematologic: Denies: Bleeding Excessively, Bruising Objective Physical Examination General Exam: Positive: Alert, Cooperative, No Acute Distress ENT Exam: Positive: Atraumatic, Mucous membr. moist/pink Neck Exam: Negative: JVD Chest Exam: Positive: Diminished, Other (prolonged expiratory phase), Wheezing (mild expiratory wheezing in all lung deleon) Heart Exam: Positive: Normal S1, Normal S2, Rate Normal, Regular Rhythm Abdomen Exam: Positive: Normal bowel sounds, Soft, Negative: Hepatospenomegaly, Tenderness Extremity Exam: Positive: Normal pulses, Negative: Tenderness Psych Exam: Positive: Oriented x 3 Vital Signs/I&O Vital Signs Date Time Temp Pulse Resp B/P Pulse Ox O2 Delivery O2 Flow Rate FiO2 04/28/16 08:45 Nasal Cannula 3.0 04/28/16 06:00 97.2 94 19 117/59 90 I&O- Last 24 Hours up to 6 AM 04/28/16 06:00 Intake Total 2020 ml Output Total 1100 ml Balance 920 ml Laboratory Data Labs 24H Laboratory Tests 2 04/28/16 06:25: Anion Gap 8, Blood Urea Nitrogen 20#H, Creatinine 1.18H, Sodium Level 141, Potassium Level 4.1, Chloride Level 103, Carbon Dioxide Level 30, Calcium Level 8.6L, Glomerular Filtration Rate 49.6 CBC/BMP Laboratory Tests 04/28/16 06:25 Calcium Level 8.6 L, Red Blood Count 4.56, Mean Corpuscular Volume 89.4, Mean Corpuscular Hemoglobin 29.1, Mean Corpuscular Hemoglobin Concent 32.6, Red Cell Distribution Width 14.6 H Microbiology Microbiology 04/27/16 Blood Culture - Preliminary, Resulted No growth after 24 hours . All specim... 04/27/16 Blood Culture - Preliminary, Resulted No growth after 24 hours . All specim... 04/27/16 Respiratory Virus Panel (PCR) (EVARISTO) - Final, Complete Coronavirus Oc43 04/27/16 Influenza Virus Type A Antigen - Final, Complete 04/27/16 Influenza Virus Type B Antigen - Final, Complete DARCIE HUANG MD Apr 28, 2016 11:51
[2016-04-28] MEDS: methylPREDNISolone INJ 125 MG/2 ML VIAL (J2930) IV SCH ×2 (12:25→23:59)
[2016-04-28 22:00] VITALS: BP 147/70
[2016-04-29] MEDS: IPRATROPIUM 0.5MG/ALBUTEROL 2.5MG INH SOL UD 3ML (DUONEB)(J7620) NEB SCH ×7 (01:50→23:47)
[2016-04-29] MEDS: LEVOTHYROXINE 0.125 MG TAB (125 MCG) PO SCH (05:53)
[2016-04-29] MEDS: LEVOTHYROXINE 0.05 MG TAB (50 MCG) PO SCH (05:53)
--- NOTE | 2016-04-29 05:58 | EDDOCDS ---
Nurse's Notes [facility] Name: Deanne Conley Age: 60 yrs Sex: Female : 1955 Arrival Date: 04/27/2016 Time: 00:58 Bed 11 Private MD: Diagnosis: Chronic obstructive pulmonary disease with (acute) exacerbation Presentation: 04/27 01:02 Presenting complaint: Patient states: patient reports she began having cold symptoms nn1 Monday. Patient reports shortness of breath becoming progressively worse tonight, difficulty ambulating due to this. Patient denies chest pain at this time. Reports palpitations earlier in the day. Presenting complaint: Patient reports she did not take home medications today. Aspirin was not taken prior to arrival. Suicide/Homicide risk assessment- the patient denies having any suicidal and/or homicidal ideations and does not present with any other emotional, behavioral or mental health complaints. Status: Patient is not a customer service teller or dependent. Transition of care: patient was not received from another setting of care. 01:02 Acuity: TANK Level 3 nn1 01:02 Method Of Arrival: Wheelchair nn1 01:09 Adult Sepsis Screening: The patient does not have new or worsening altered mentation. nn1 Patient has a respiratory rate of greater than or equal to 22 (1 point). Systolic blood pressure is greater than 100. Patient has a qSOFA score of 1- Negative Sepsis Screen. 01:18 Acuity level changed due to complexity of care. lf1 01:18 Acuity: TANK Level 2 lf1 Triage Assessment: 01:07 General: Appears uncomfortable. Pain: Denies pain. HIV screening NA for this visit nn1 Offered previously. The patient is triaged at the bedside. See Assessment in Nurses Notes section of ED record. Neurological: Level of Consciousness is awake, alert, obeys commands. Cardiovascular: Capillary refill < 3 seconds Chest pain is denied. Respiratory: Airway is patent Respiratory effort is even, labored, Respiratory pattern is regular, Breath sounds are coarse Breath sounds are diminished Breath sounds with wheezes expiratory bilaterally. Derm: Skin is pink, warm & dry. Historical: - Allergies: No known drug Allergies; - Home Meds: 1. levothyroxine 175 mcg Oral tab 1 tab once daily 2. Lasix 40 mg Oral tab 1 tab 2 times per day 3. potassium chloride Unknown Oral once daily 4. Mey-D 12 Hour 60-120 mg Oral Tb12 1 tab 2 times per day - PMHx: COPD; Hypothyroidism; CHF; - PSHx: Tubal ligation; wrist - right; - Social history: Smoking status: Patient uses tobacco products, heavy tobacco smoker. Ethnicity: No barriers to communication noted, The patient speaks fluent Divehi, Speaks appropriately for age. - Family history: Not pertinent. - : The pt / caregiver states he / she is not on anticoagulants. Home medication list is obtained from the patient. - Exposure Risk Screening:: None identified. Screenin:31 Screening information is obtained from the patient. Fall risk: No risks identified. kas2 Assistance ADL's: requires no assistance with activities of daily living. Abuse/DV Screen: The patient / caregiver reports he/she is: not in a situation that causes fear, pain or injury. Nutritional screening: No deficits noted. Advance Directives: Currently, there is no health care proxy. There is no active DNR order. There is a living will, and a copy is available at this time. There is no Power of Oil Well Drilling Manager. home support is adequate. Assessment: 01:30 General: Appears distressed, uncomfortable, well nourished, well groomed, Behavior is kas2 anxious, cooperative. Pain: Location: chest pain Pain currently is 8 out of 10 on a pain scale. Pain does not radiate. Quality of pain is described as pressure, sharp. Neurological: Level of Consciousness is awake, alert, Oriented to person, place, time. Cardiovascular: Capillary refill < 3 seconds Heart tones S1 S2 present Rhythm is sinus tachycardia No ectopy. Respiratory: Airway is patent Respiratory effort is labored, with nasal flaring, pursed lip, shallow, Respiratory pattern is tachypnea Breath sounds with wheezes inspiratory expiratory bilaterally. Derm: Skin is intact, Skin is dry, Skin is pink, warm & dry. Skin temperature is warm. 02:12 General: Appears in no apparent distress, comfortable, well nourished, well groomed, kas2 Behavior is appropriate for age, cooperative. Pain: Location: chest Pain currently is 4 out of 10 on a pain scale. Neurological: Level of Consciousness is awake, alert, Oriented to person, place, time. Cardiovascular: Rhythm is sinus tachycardia No ectopy. Respiratory: Airway is patent Respiratory effort is even, unlabored, Respiratory pattern is regular, symmetrical. Derm: Skin is intact, Skin is dry, Skin is pink, warm & dry. Skin temperature is warm. 03:18 General: Patient sitting in bed watching TV. Airway patent and respiratory effort even kas2 and unlabored. Patient remains on 4Lnp. No distress noted. Appears comfortable. VSS. Call laurent within reach. Will continue to monitor.. 04:00 General: Appears in no apparent distress, comfortable, well nourished, well groomed, kas2 Behavior is appropriate for age, cooperative. Pain: Denies pain. Neurological: Level of Consciousness is awake, alert, Oriented to person, place, time. Cardiovascular: Rhythm is sinus tachycardia No ectopy. Respiratory: Airway is patent Respiratory effort is even, unlabored, Respiratory pattern is regular, symmetrical. Derm: Skin is intact, Skin is dry, Skin is pink, warm & dry. Skin temperature is warm. Vital Signs: 01:08 BP 172 / 75; Pulse 107; Resp 32; Temp 98.6(T); Pulse Ox 85% on R/A; Weight 83.46 kg; nn1 Height 5 ft. 2 in. (157.48 cm); Pain 0/10; 01:28 BP 149 / 99 (auto/); kas2 01:28 Pulse 112 MON; Pulse Ox 91% ; kas2 01:43 BP 149 / 63 (auto/); kas2 01:43 Pulse 104 MON; Pulse Ox 98% ; kas2 01:58 BP 132 / 58 (auto/); kas2 01:58 Pulse 108 MON; Pulse Ox 94% ; kas2 02:13 BP 138 / 65 (auto/); kas2 02:13 Pulse 108 MON; Pulse Ox 93% ; kas2 02:28 BP 139 / 65 (auto/); kas2 02:28 Pulse 104 MON; Pulse Ox 92% ; kas2 02:43 BP 149 / 65 (auto/); kas2 02:43 Pulse 106 MON; Pulse Ox 92% ; kas2 03:09 BP 115 / 64 (auto/); kas2 03:09 Pulse 102 MON; Pulse Ox 93% ; kas2 03:13 BP 120 / 68 (auto/); kas2 03:13 Pulse 100 MON; Pulse Ox 93% ; kas2 03:28 Resp 20; Temp 97.6(O); Pain 2/10; kas2 03:28 BP 125 / 64 (auto/); kas2 03:28 Pulse 104 MON; Pulse Ox 93% ; kas2 03:43 BP 128 / 66 (auto/); kas2 03:43 Pulse 98 MON; Pulse Ox 95% ; kas2 03:59 BP 128 / 66; Pulse 98; Resp 24; Temp 97.9(O); Pulse Ox 95% on 4 lpm NC; Pain 0/10; kas2 04:27 BP 128 / 65; Pulse 92; Resp 24; Pulse Ox 96% 4 lpm ; Pain 0/10; kas2 01:08 Body Mass Index 33.65 (83.46 kg, 157.48 cm) nn1 Vitals: 01:08 Log In Time: April 27, 2016 at 01:01. nn1 ED Course: 01:00 Patient visited by Rosa Starr Reg. hs2 01:00 Patient moved to Waiting hs2 01:01 Sudhir Mello MD is Attending Physician. br1 01:05 Triage Initiated nn1 01:10 Maty Calderón RN is Primary Nurse. nn1 01:10 Patient moved to 11 nn1 01:10 hospital monitor on. Pulse ox on. NIBP on. kas2 01:10 The patient / caregiver is instructed regarding the plan of care and ED course. kas2 01:18 Patient visited by Sudhir Mello MD. br1 01:23 EKG done. (by ED staff). Reviewed by Sudhir Mello MD. jmv 01:24 Patient visited by Antonio Rivera PCA. jmv 01:29 Patient visited by Antonio Rivera PCA. jmv 01:32 Patient visited by Maty Calderón RN. kas2 01:32 Inserted saline lock: 18 gauge in left antecubital area and blood collected. The kas2 patient tolerated the procedure well. No procedures done that require assistance. 01:36 -Arterial Blood Gas Sent. jc3 01:52 [facility] [place] Agreement was scanned into [employer] and attached to record. pm4 02:10 BLOOD CULTURES Sent. jmv 02:19 Patient visited by Maty Calderón RN. kas2 02:20 Genna Riggins is Hospitalizing Provider. br1 03:00 portable chest Returned. EDMS 03:24 Patient visited by Maty Calderón RN. kas2 03:28 Patient visited by Maty Calderón RN. kas2 04:44 Patient visited by Maty Calderón RN. [facility] 14:10 T-Sheet-- Draft Copy was scanned into [employer] and attached to record. 14:11 ECG/EKG was scanned into [employer] and attached to record. Administered Medications: 01:29 Drug: Solu-MEDROL 125 mg [Solu-Medrol 500 mg intravenous solution (125 mg)] Route: IVP; [facility] Site: left antecubital; 01:29 Drug: Aspirin 324 mg [aspirin 81 mg chewable tablet (4 tabs)] Route: PO; [facility] 01:30 Drug: Albuterol-Ipratropium 1 neb [ipratropium-albuterol 0.5 mg-3 mg(2.5 mg base)/3 mL jc3 nebulization soln (1 neb)] Route: Nebulizer; 01:36 Drug: Albuterol-Ipratropium 1 neb [ipratropium-albuterol 0.5 mg-3 mg(2.5 mg base)/3 mL jc3 nebulization soln (1 neb)] Route: Nebulizer; 01:51 Drug: Albuterol-Ipratropium 1 neb [ipratropium-albuterol 0.5 mg-3 mg(2.5 mg base)/3 mL jc3 nebulization soln (1 neb)] Route: Nebulizer; RT: 01:35 ABG's drawn from right radial artery pressure held for 5 minutes no bleeding noted jc3 pressure bandage applied specimen sent pt. tolerated well. Initial Med Neb Given as ordered. O2 via nasal cannula \T\ 5L/min. Respiratory: Airway is patent Respiratory effort is labored, Respiratory pattern is tachypnea Breath sounds are coarse bilaterally. Breath sounds with crackles bilaterally. Breath sounds with wheezes bilaterally. at expiration. 01:51 Subsequent Med Neb Given as ordered. Respiratory: Breath sounds are coarse Breath jc3 sounds with crackles Breath sounds with wheezes bilaterally. at expiration at inspiration. Order Results: Lab Order: Basic Metabolic Profile; SPEC'M 04/27/16 01:23 Test: GLUCOSE, FASTING; Value: 141; Range: 80-110; Abnormal: Above high normal; Units: MG/DL; Status: F Test: BLOOD UREA NITROGEN; Value: 10; Range: 7-18; Units: MG/DL; Status: F Test: CREATININE FOR GFR; Value: 0.98; Range: 0.55-1.02; Units: MG/DL; Status: F Test: GLOMERULAR FILTRATION RATE; Value: > 60.0; Range: >45; Status: F Test: SODIUM LEVEL; Value: 140; Range: 136-145; Units: MEQ/L; Status: F Test: POTASSIUM SERUM; Value: 3.8; Range: 3.5-5.1; Units: MEQ/L; Status: F Test: CHLORIDE LEVEL; Value: 104; Range: 98-107; Units: MEQ/L; Status: F Test: CARBON DIOXIDE LEVEL; Value: 26; Range: 21-32; Units: MEQ/L; Status: F Test: ANION GAP; Value: 10; Range: 8-16; Units: MEQ/L; Status: F Test: CALCIUM LEVEL; Value: 8.5; Range: 8.8-10.2; Abnormal: Below low normal; Units: MG/DL; Status: F Test Note: ; Units are mL/min/1.73 m2 Chronic Kidney Disease Staging per NKF: Stage I & II GFR >=60 Normal to Mildly Decreased Stage III GFR 30-59 Moderately Decreased Stage IV GFR 15-29 Severely Decreased Stage V GFR <15 Very Little GFR Left ESRD GFR <15 on GUIDE DELEGATE Lab Order: CBC with Diff; SPEC'M 04/27/16 01:23 Test: WHITE BLOOD COUNT; Value: 9.9; Range: 4.0-10.0; Units: K/mm3; Status: F Test: RED BLOOD COUNT; Value: 4.79; Range: 4.00-5.40; Units: M/mm3; Status: F Test: HEMOGLOBIN; Value: 13.9; Range: 12.0-16.0; Units: g/dl; Status: F Test: HEMATOCRIT; Value: 41.9; Range: 36.0-47.0; Units: %; Status: F Test: MEAN CORPUSCULAR VOLUME; Value: 87.6; Range: 80.0-96.0; Units: fl; Status: F Test: MEAN CORPUSCULAR HEMOGLOBIN; Value: 28.9; Range: 27.0-33.0; Units: pg; Status: F Test: MEAN CORPUSCULAR HGB CONC; Value: 33.0; Range: 32.0-36.5; Units: g/dl; Status: F Test: RED CELL DISTRIBUTION WIDTH; Value: 13.4; Range: 11.5-14.5; Units: %; Status: F Test: PLATELET COUNT, AUTOMATED; Value: 304; Range: 150-450; Units: k/mm3; Status: F Test: NEUTROPHILS %; Value: 82.4; Range: 36.0-66.0; Abnormal: Above high normal; Units: %; Status: F Test: LYMPH %; Value: 12.0; Range: 24.0-44.0; Abnormal: Below low normal; Units: %; Status: F Test: MONO %; Value: 2.6; Range: 0.0-5.0; Units: %; Status: F Test: EOS %; Value: 0.7; Range: 0.0-3.0; Units: %; Status: F Test: BASO %; Value: 0.5; Range: 0.0-1.0; Units: %; Status: F Test: LARGE UNSTAINED CELL %; Value: 1.8; Range: 0.0-4.0; Units: %; Status: F Test: NEUTROPHILS #; Value: 8.2; Range: 1.8-7.7; Abnormal: Above high normal; Units: K/mm3; Status: F Test: LYMPH #; Value: 1.2; Range: 1.5-4.5; Abnormal: Below low normal; Units: K/mm3; Status: F Test: MONO #; Value: 0.3; Range: 0.0-0.8; Units: K/mm3; Status: F Test: EOS #; Value: 0.1; Range: 0.0-0.50; Units: K/mm3; Status: F Test: BASO #; Value: 0.0; Range: 0.0-0.2; Units: K/mm3; Status: F Test: LARGE UNSTAINED CELL #; Value: 0.2; Range: 0.0-0.4; Units: K/mm3; Status: F Lab Order: Cardiac Injury Profile; SPEC'M 04/27/16 01:23 Test: CPK CREATINE PHOSPHOKINASE; Value: 213; Range: 26-192; Abnormal: Above high normal; Units: U/L; Status: F Test: CK-MB VALUE MASS; Value: 3.2; Range: 0.0-3.6; Units: NG/ML; Status: F Test: MB/CK RELATIVE INDEX; Value: 1.50; Range: < OR =4; Status: F Test Note: ; DIAGNOSIS CRITERIA MMB ng/ml Relative Index (RI) NON-AMI < or = 5 N/A BUSTAMANTE ZONE > 5 < or = 4 AMI > 5 > 4 Lab Order: Troponin; 04/27/16 Test: TROPONIN I; Value: 0.02; Range: < 0.10; Units: NG/ML; Status: F Test Note: ; Troponin I Reference Interval for [employer] LOCI: 99th Percentile= 0.00-0.045 ng/ml Risk Stratification: <= 0.10 ng/ml Decreased Risk for Adverse Clinical Events. 0.10-1.50 ng/ml Increased Risk for Adverse Clinical Events. Evaluation of additional criterion and/or repeat testing in 2-6 hours is suggested to rule out myocardial damage. >= 1.50 ng/ml Indicative of Myocardial Injury. Lab Order: BNP; 04/27/16 Test: BRAIN NATRIURETIC PEPTIDE; Value: 43.3; Range: <100; Units: PG/ML; Status: F Lab Order: Lactic Acid (Bustamante tube on ice); 04/27/16 Test: LACTIC ACID LEVEL, LACTATE; Value: 1.6; Range: 0.4-2.0; Units: MMOL/L; Status: F Lab Order: -Arterial Blood Gas; 04/27/16 Test: ABG pH (ARTERIAL); Value: 7.317; Range: 7.350-7.450; Abnormal: Below low normal; Units: UNITS; Status: F Test: ABG PARTIAL PRESSURE CO2; Value: 53.8; Range: 35.0-45.0; Abnormal: Above high normal; Units: mmHg; Status: F Test: ABG PARTIAL PRESSURE O2; Value: 75.8; Range: 75.0-100.0; Units: mmHg; Status: F Test: ABG TOTAL CO2; Value: 28.6; Range: 23.0-31.0; Units: MEQ/L; Status: F Test: ABG HCO3; Value: 26.9; Range: 22.0-26.0; Abnormal: Above high normal; Units: MEQ/L; Status: F Test: ABG BASE EXCESS; Value: -0.2; Range: -2.0-2.0; Status: F Test: ABG STANDARD HCO3; Value: 24.3; Range: 22.0-26.0; Units: MEQ/L; Status: F Test: ABG O2 SATURATION; Value: 94.1; Range: 95.0-99.0; Abnormal: Below low normal; Units: %; Status: F Test: ABG DEVICE; Value: NASAL KISHAN; Status: F Radiology Order: portable chest Test: portable chest REASON FOR EXAMINATION: Chest Pain; Clinical: Chest pain .; ; Comparison: 08/30/2015 .; ; Findings:; The mediastinum and cardiac silhouette are stable and within normal limits for; portable technique. The lung deleon are clear without acute consolidation,; effusion, or pneumothorax. Skeletal structures are intact.; ; Impression:; Normal portable chest x-ray; ; ; Signed by; Desmond Vivas MD 04/27/2016 02:35 A; Outcome: 02:20 Decision to Hospitalize by Provider. br1 04:05 Discharge Assessment: patient administered narcotics - no. The following High Risk [facility] Discharge criteria are identified: None. Admitted to Med/Surg accompanied by tech, via stretcher, with oxygen, with chart. Condition: good Condition: stable Condition: improved. CT Study completed. Property :Personal belongings accompany Pt. 04:57 Patient left the ED. kas2 Signatures: Dispatcher [employer] EDDC Christa Godoy, Reg Reg gb Clarissa FlowersRN RN lf1 Sudhir Mello MD MD br1 Usman Downey jc3 Gricel HolmRN RN nn1 Rosa Starr, Reg Reg hs2 Maty Calderón RN RN kas2 Antonio Rivera, RAILCAR CARPENTER RAILCAR CARPENTER jmv Efraín Antony, Reg Reg pm4 Corrections: (The following items were deleted from the chart) 01:09 01:02 Adult Sepsis Screening: The patient does not have new or worsening altered nn1 mentation. nn1 01:09 01:02 Adult Sepsis Screening: Systolic blood pressure is greater than 100. Patient has nn1 a qSOFA score of 0- Negative Sepsis Screen. nn1 Chart Complete MTDD
--- NOTE | 2016-04-29 05:58 | EDDOCDS ---
Physician Documentation [facility] [place] Name: Deanne Conley Age: 60 yrs Sex: Female : 1955 Arrival Date: 04/27/2016 Time: 00:58 Bed 11 Private MD: Disposition: 04/27/16 02:20 Hospitalization ordered by Genna Riggins for Inpatient Admission. Preliminary diagnosis is Chronic obstructive pulmonary disease with (acute) exacerbation. - Bed requested for 4 [place]. - Status is Inpatient Admission. kas2 - Condition is Stable. - Problem is an acute exacerbation. - Symptoms are unchanged. Historical: - Allergies: No known drug Allergies; - Home Meds: 1. levothyroxine 175 mcg Oral tab 1 tab once daily 2. Lasix 40 mg Oral tab 1 tab 2 times per day 3. potassium chloride Unknown Oral once daily 4. Mey-D 12 Hour 60-120 mg Oral Tb12 1 tab 2 times per day - PMHx: COPD; Hypothyroidism; CHF; - PSHx: Tubal ligation; wrist - right; - Social history: Smoking status: Patient uses tobacco products, heavy tobacco smoker. Ethnicity: No barriers to communication noted, The patient speaks fluent Venezuelan, Speaks appropriately for age. - Family history: Not pertinent. - : The pt / caregiver states he / she is not on anticoagulants. Home medication list is obtained from the patient. - Exposure Risk Screening:: None identified. Vital Signs: 04/27 01:08 BP 172 / 75; Pulse 107; Resp 32; Temp 98.6(T); Pulse Ox 85% on R/A; Weight 83.46 kg / nn1 184 lbs; Height 5 ft. 2 in. (157.48 cm); Pain 0/10; 01:28 BP 149 / 99 (auto/); kas2 01:28 Pulse 112 MON; Pulse Ox 91% ; kas2 01:43 BP 149 / 63 (auto/); kas2 01:43 Pulse 104 MON; Pulse Ox 98% ; kas2 01:58 BP 132 / 58 (auto/); kas2 01:58 Pulse 108 MON; Pulse Ox 94% ; kas2 02:13 BP 138 / 65 (auto/); kas2 02:13 Pulse 108 MON; Pulse Ox 93% ; kas2 02:28 BP 139 / 65 (auto/); kas2 02:28 Pulse 104 MON; Pulse Ox 92% ; kas2 02:43 BP 149 / 65 (auto/); kas2 02:43 Pulse 106 MON; Pulse Ox 92% ; kas2 03:09 BP 115 / 64 (auto/); kas2 03:09 Pulse 102 MON; Pulse Ox 93% ; kas2 03:13 BP 120 / 68 (auto/); kas2 03:13 Pulse 100 MON; Pulse Ox 93% ; kas2 03:28 Resp 20; Temp 97.6(O); Pain 2/10; kas2 03:28 BP 125 / 64 (auto/); kas2 03:28 Pulse 104 MON; Pulse Ox 93% ; kas2 03:43 BP 128 / 66 (auto/); kas2 03:43 Pulse 98 MON; Pulse Ox 95% ; kas2 03:59 BP 128 / 66; Pulse 98; Resp 24; Temp 97.9(O); Pulse Ox 95% on 4 lpm NC; Pain 0/10; kas2 04:27 BP 128 / 65; Pulse 92; Resp 24; Pulse Ox 96% 4 lpm ; Pain 0/10; kas2 01:08 Body Mass Index 33.65 (83.46 kg, 157.48 cm) nn1 MDM: 01:01 Visual And Stock Associate/Pulse Ox/q 30 min VS ordered. br1 01:01 IV Saline Lock ordered. br1 01:01 Rhythm Strip to chart ordered. br1 01:01 Undress patient appropriately for examination ordered. br1 01:03 Basic Metabolic Profile Ordered. EDMS 01:03 CBC with Diff Ordered. EDMS 01:03 Cardiac Injury Profile Ordered. EDMS 01:03 Troponin Ordered. EDMS 01:03 portable chest Ordered. EDMS 01:03 ECG WITH READING ER PHYS+CARDIAG ordered. EDMS 01:13 -Blood Culture (Adults Only), peripheral from different site, or from device/port/PICC br1 etc. if present ordered. 01:13 BNP Ordered. EDMS 01:13 -Blood Culture Ordered. EDMS 01:13 Lactic Acid (Bustamante tube on ice) Ordered. EDMS 01:13 Oxygen at 4L/Min NC or Home dosage ordered. br1 01:18 Albuterol-Ipratropium 1 neb Nebulizer every 20 minutes x3 ordered. br1 01:18 Call Respiratory ordered. br1 01:18 Solu-MEDROL 125 mg IVP once ordered. br1 01:19 -Arterial Blood Gas Ordered. EDMS 01:19 Call Respiratory complete. tmm1 01:20 -Blood Culture (Adults Only), peripheral from different site, or from device/port/PICC tmm1 etc. if present complete. 01:21 BLOOD CULTURES Ordered. EDMS 01:21 Aspirin 324 mg PO once ordered. br1 01:46 Financial registration complete. pm4 01:52 [facility] Payment Agreement was scanned into [employer] and attached to record. pm4 01:55 CBC with Diff Reviewed. br1 01:55 -Arterial Blood Gas Reviewed. br1 01:55 BNP Reviewed. br1 01:55 Lactic Acid (Bustamante tube on ice) Reviewed. br1 02:10 Basic Metabolic Profile Reviewed. br1 02:10 Cardiac Injury Profile Reviewed. br1 02:10 Troponin Reviewed. br1 02:13 BED REQUEST+ADM ordered. EDMS 03:28 Admission / Observation Status ordered. EDMS 03:28 REGULAR DIET ordered. EDMS 03:29 BASIC METABOLIC PROFILE Ordered. EDMS 03:29 COMPLETE BLOOD COUNT Ordered. EDMS 04:01 INFLUENZA A&B RAPID ANTIGEN Ordered. EDMS 14:10 T-Sheet-- Draft Copy was scanned into [employer] and attached to record. gb 14:11 ECG/EKG was scanned into [employer] and attached to record. gb Administered Medications: 01:29 Drug: Solu-MEDROL 125 mg [Solu-Medrol 500 mg intravenous solution (125 mg)] Route: IVP; kas2 Site: left antecubital; 01:29 Drug: Aspirin 324 mg [aspirin 81 mg chewable tablet (4 tabs)] Route: PO; kas2 01:30 Drug: Albuterol-Ipratropium 1 neb [ipratropium-albuterol 0.5 mg-3 mg(2.5 mg base)/3 mL jc3 nebulization soln (1 neb)] Route: Nebulizer; 01:36 Drug: Albuterol-Ipratropium 1 neb [ipratropium-albuterol 0.5 mg-3 mg(2.5 mg base)/3 mL jc3 nebulization soln (1 neb)] Route: Nebulizer; 01:51 Drug: Albuterol-Ipratropium 1 neb [ipratropium-albuterol 0.5 mg-3 mg(2.5 mg base)/3 mL jc3 nebulization soln (1 neb)] Route: Nebulizer; Signatures: Dispatcher [employer] SASHA MARTINEZ, Nancy, RN RN Christa Leong, Reg Reg gb Sudhir Mello MD MD br1 George, Kelly, SAP BW DEVELOPER SAP BW DEVELOPER tmm1 Gricel Holm RN RN nn1 Maty Calderón RN RN kas2 Efraín Antony, Reg Reg pm4 Usman Downey jc3 The chart was reviewed and I authenticate all verbal orders and agree with the evaluation and treatment provided.Attachments: 01:52 [facility] Payment Agreement pm4 14:10 T-Sheet-- Draft Copy gb 14:11 ECG/EKG gb Chart Complete MTDD
--- NOTE | 2016-04-29 05:58 | EDDOCDS ---
Physician Documentation Name: Deanne Conley Age: 60 yrs Sex: Female : 1955 Arrival Date: 04/27/2016 Time: 00:58 Bed 11 Private MD: Disposition: 04/27/16 02:20 Hospitalization ordered by Genna Riggins for Inpatient Admission. Preliminary diagnosis is Chronic obstructive pulmonary disease with (acute) exacerbation. - Bed requested for 4 [place]. - Status is Inpatient Admission. kas2 - Condition is Stable. - Problem is an acute exacerbation. - Symptoms are unchanged. Historical: - Allergies: No known drug Allergies; - Home Meds: 1. levothyroxine 175 mcg Oral tab 1 tab once daily 2. Lasix 40 mg Oral tab 1 tab 2 times per day 3. potassium chloride Unknown Oral once daily 4. Mey-D 12 Hour 60-120 mg Oral Tb12 1 tab 2 times per day - PMHx: COPD; Hypothyroidism; CHF; - PSHx: Tubal ligation; wrist - right; - Social history: Smoking status: Patient uses tobacco products, heavy tobacco smoker. Ethnicity: No barriers to communication noted, The patient speaks fluent Wallisian, Speaks appropriately for age. - Family history: Not pertinent. - : The pt / caregiver states he / she is not on anticoagulants. Home medication list is obtained from the patient. - Exposure Risk Screening:: None identified. Vital Signs: 04/27 01:08 BP 172 / 75; Pulse 107; Resp 32; Temp 98.6(T); Pulse Ox 85% on R/A; Weight 83.46 kg / nn1 184 lbs; Height 5 ft. 2 in. (157.48 cm); Pain 0/10; 01:28 BP 149 / 99 (auto/); kas2 01:28 Pulse 112 MON; Pulse Ox 91% ; kas2 01:43 BP 149 / 63 (auto/); kas2 01:43 Pulse 104 MON; Pulse Ox 98% ; kas2 01:58 BP 132 / 58 (auto/); kas2 01:58 Pulse 108 MON; Pulse Ox 94% ; kas2 02:13 BP 138 / 65 (auto/); kas2 02:13 Pulse 108 MON; Pulse Ox 93% ; kas2 02:28 BP 139 / 65 (auto/); kas2 02:28 Pulse 104 MON; Pulse Ox 92% ; kas2 02:43 BP 149 / 65 (auto/); kas2 02:43 Pulse 106 MON; Pulse Ox 92% ; kas2 03:09 BP 115 / 64 (auto/); kas2 03:09 Pulse 102 MON; Pulse Ox 93% ; kas2 03:13 BP 120 / 68 (auto/); kas2 03:13 Pulse 100 MON; Pulse Ox 93% ; kas2 03:28 Resp 20; Temp 97.6(O); Pain 2/10; kas2 03:28 BP 125 / 64 (auto/); kas2 03:28 Pulse 104 MON; Pulse Ox 93% ; kas2 03:43 BP 128 / 66 (auto/); kas2 03:43 Pulse 98 MON; Pulse Ox 95% ; kas2 03:59 BP 128 / 66; Pulse 98; Resp 24; Temp 97.9(O); Pulse Ox 95% on 4 lpm NC; Pain 0/10; kas2 04:27 BP 128 / 65; Pulse 92; Resp 24; Pulse Ox 96% 4 lpm ; Pain 0/10; kas2 01:08 Body Mass Index 33.65 (83.46 kg, 157.48 cm) nn1 MDM: 01:01 Audio Visual Aide/Pulse Ox/q 30 min VS ordered. br1 01:01 IV Saline Lock ordered. br1 01:01 Rhythm Strip to chart ordered. br1 01:01 Undress patient appropriately for examination ordered. br1 01:03 Basic Metabolic Profile Ordered. EDMS 01:03 CBC with Diff Ordered. EDMS 01:03 Cardiac Injury Profile Ordered. EDMS 01:03 Troponin Ordered. EDMS 01:03 portable chest Ordered. EDMS 01:03 ECG WITH READING ER PHYS+CARDIAG ordered. EDMS 01:13 -Blood Culture (Adults Only), peripheral from different site, or from device/port/PICC br1 etc. if present ordered. 01:13 BNP Ordered. EDMS 01:13 -Blood Culture Ordered. EDMS 01:13 Lactic Acid (Bustamante tube on ice) Ordered. EDMS 01:13 Oxygen at 4L/Min NC or Home dosage ordered. br1 01:18 Albuterol-Ipratropium 1 neb Nebulizer every 20 minutes x3 ordered. br1 01:18 Call Respiratory ordered. br1 01:18 Solu-MEDROL 125 mg IVP once ordered. br1 01:19 -Arterial Blood Gas Ordered. EDMS 01:19 Call Respiratory complete. tmm1 01:20 -Blood Culture (Adults Only), peripheral from different site, or from device/port/PICC tmm1 etc. if present complete. 01:21 BLOOD CULTURES Ordered. EDMS 01:21 Aspirin 324 mg PO once ordered. br1 01:46 Financial registration complete. pm4 01:52 [facility] Payment Agreement was scanned into [employer] and attached to record. pm4 01:55 CBC with Diff Reviewed. br1 01:55 -Arterial Blood Gas Reviewed. br1 01:55 BNP Reviewed. br1 01:55 Lactic Acid (Bustamante tube on ice) Reviewed. br1 02:10 Basic Metabolic Profile Reviewed. br1 02:10 Cardiac Injury Profile Reviewed. br1 02:10 Troponin Reviewed. br1 02:13 BED REQUEST+ADM ordered. EDMS 03:28 Admission / Observation Status ordered. EDMS 03:28 REGULAR DIET ordered. EDMS 03:29 BASIC METABOLIC PROFILE Ordered. EDMS 03:29 COMPLETE BLOOD COUNT Ordered. EDMS 04:01 INFLUENZA A&B RAPID ANTIGEN Ordered. EDMS 14:10 T-Sheet-- Draft Copy was scanned into [employer] and attached to record. gb 14:11 ECG/EKG was scanned into [employer] and attached to record. gb Administered Medications: 01:29 Drug: Solu-MEDROL 125 mg [Solu-Medrol 500 mg intravenous solution (125 mg)] Route: IVP; kas2 Site: left antecubital; 01:29 Drug: Aspirin 324 mg [aspirin 81 mg chewable tablet (4 tabs)] Route: PO; kas2 01:30 Drug: Albuterol-Ipratropium 1 neb [ipratropium-albuterol 0.5 mg-3 mg(2.5 mg base)/3 mL jc3 nebulization soln (1 neb)] Route: Nebulizer; 01:36 Drug: Albuterol-Ipratropium 1 neb [ipratropium-albuterol 0.5 mg-3 mg(2.5 mg base)/3 mL jc3 nebulization soln (1 neb)] Route: Nebulizer; 01:51 Drug: Albuterol-Ipratropium 1 neb [ipratropium-albuterol 0.5 mg-3 mg(2.5 mg base)/3 mL jc3 nebulization soln (1 neb)] Route: Nebulizer; Signatures: Dispatcher [employer] SASHA MARTINEZ, Nancy, RN RN Christa Leong, Reg Reg gb Sudhir Mello MD MD br1 George, Kelly, K 9 POLICE OFFICER K 9 POLICE OFFICER tmm1 Gricel Holm RN RN nn1 Maty Calderón RN RN kas2 Efraín Antony, Reg Reg pm4 Usman Downey jc3 The chart was reviewed and I authenticate all verbal orders and agree with the evaluation and treatment provided.Attachments: 01:52 [facility] Payment Agreement pm4 14:10 T-Sheet-- Draft Copy gb 14:11 ECG/EKG gb Chart Complete MTDD
[2016-04-29 06:00] VITALS: BP 119/70
[2016-04-29 06:21] LABS: MEAN CORPUSCULAR HGB CONC 31.8 g/dl (32.0-36.5); MEAN CORPUSCULAR VOLUME 87.9 fl (80.0-96.0); RED CELL DISTRIBUTION WIDTH 14.8 % (11.5-14.5)
[2016-04-29 06:26] LABS: CALCIUM LEVEL 8.8 MG/DL (8.8-10.2); CREATININE FOR GFR 1.14 MG/DL (0.55-1.02); GLOMERULAR FILTRATION RATE 51.6 (>45); POTASSIUM SERUM 4.1 MEQ/L (3.5-5.1)
[2016-04-29] MEDS: ADVAIR DISKUS 250/50 INH PWD INH SCH ×2 (07:42→21:00)
[2016-04-29] MEDS: predniSONE 20 MG TAB PO SCH (08:42)
[2016-04-29] MEDS: guaiFENesin ER 600 MG TAB PO SCH ×2 (08:42→20:00)
[2016-04-29] MEDS: buPROPion **SR TABLET** (ZYBAN) 150MG PO SCH (08:42)
[2016-04-29] MEDS: ENOXAPARIN 40 MG/0.4 ML SYRINGE (J1650) SC SCH (08:43)
[2016-04-29 09:43] VITALS: BP 148/78
[2016-04-29 14:00] VITALS: BP 145/70
--- NOTE | 2016-04-29 14:32 | IPNPDOC ---
Assessment/Plan Date Seen The patient was seen on 04/29/16. Problems Problems: (1) COPD exacerbation Status: Acute Response to Treatment: Improving Problem Text: Secondary to viral upper respiratory tract infection Steroids switched to by mouth Maintain O2 between 88 and 92%, currently requiring 2 L of oxygen-we will down titrate as tolerated Continue nebulizer treatment Continue supportive treatment Patient states that her respiratory status has improved since admission, we will continue to monitor her progress (2) Hypothyroidism Status: Chronic Response to Treatment: Stable Problem Text: Continue with home dose of Synthroid (3) Depression Status: Chronic Response to Treatment: Stable Problem Text: No suicidal, homicidal ideations-mood appears to be stable Continue bupropion Plan / VTE VTE Prophylaxis Ordered?: Yes (Lovenox) Subjective Review of Systems CC/HPI The patient is a 60-year-old female admitted with a reason for visit of Copd Exacerbation. General: Denies: Chills, Night Sweats Constitutional: Denies: Chills, Fever Eyes: Denies: Pain, Vision change ENT: Denies: Ear Pain, Head Aches Pulmonary: Reports: Cough, Dyspnea Cardiovascular: Denies: Chest Pain, Orthopnea, Palpitations Gastrointestinal: Denies: Nausea, Vomiting Genitourinary: Denies: Dysuria, Frequency Hematologic: Denies: Bleeding Excessively, Bruising Objective Physical Examination General Exam: Positive: Alert, Cooperative, No Acute Distress ENT Exam: Positive: Atraumatic, Mucous membr. moist/pink Neck Exam: Negative: JVD Chest Exam: Positive: Diminished, Other (prolonged expiratory phase), Wheezing (mild expiratory wheezing in all lung deleon) Heart Exam: Positive: Normal S1, Normal S2, Rate Normal, Regular Rhythm Abdomen Exam: Positive: Normal bowel sounds, Soft, Negative: Hepatospenomegaly, Tenderness Extremity Exam: Positive: Normal pulses, Negative: Tenderness Psych Exam: Positive: Oriented x 3 Vital Signs/I&O Vital Signs Date Time Temp Pulse Resp B/P Pulse Ox O2 Delivery O2 Flow Rate FiO2 04/29/16 11:00 Nasal Cannula 2.0 04/29/16 06:00 97.3 76 18 119/70 94 I&O- Last 24 Hours up to 6 AM 04/29/16 06:00 Intake Total 1200 ml Output Total 750 ml Balance 450 ml Laboratory Data Labs 24H Laboratory Tests 2 04/29/16 05:57: Anion Gap 8, Blood Urea Nitrogen 22H, Creatinine 1.14H, Sodium Level 141, Potassium Level 4.1, Chloride Level 102, Carbon Dioxide Level 31, Calcium Level 8.8, Glomerular Filtration Rate 51.6 CBC/BMP Laboratory Tests 04/29/16 05:57 Calcium Level 8.8, Red Blood Count 4.35, Mean Corpuscular Volume 87.9, Mean Corpuscular Hemoglobin 28.0, Mean Corpuscular Hemoglobin Concent 31.8 L, Red Cell Distribution Width 14.8 H Microbiology Microbiology 04/27/16 Blood Culture - Preliminary, Resulted No Growth after 48 hours. All Specime... 04/27/16 Blood Culture - Preliminary, Resulted No Growth after 48 hours. All Specime... 04/27/16 Respiratory Virus Panel (PCR) ([facility]) - Final, Complete Coronavirus Oc43 04/27/16 Influenza Virus Type A Antigen - Final, Complete 04/27/16 Influenza Virus Type B Antigen - Final, Complete DARCIE HUANG MD Apr 29, 2016 14:32
[2016-04-29] MEDS: ACETAMINOPHEN TAB 650MG DOSE (2X325MG) PO PRN (19:57)
[2016-04-29 22:00] VITALS: BP 141/77
[2016-04-30] MEDS: IPRATROPIUM 0.5MG/ALBUTEROL 2.5MG INH SOL UD 3ML (DUONEB)(J7620) NEB SCH ×3 (04:00→11:40)
[2016-04-30 05:32] LABS: MEAN CORPUSCULAR HGB CONC 32.1 g/dl (32.0-36.5); MEAN CORPUSCULAR VOLUME 90.3 fl (80.0-96.0); RED CELL DISTRIBUTION WIDTH 13.6 % (11.5-14.5)
[2016-04-30] MEDS: LEVOTHYROXINE 0.125 MG TAB (125 MCG) PO SCH (05:37)
[2016-04-30] MEDS: LEVOTHYROXINE 0.05 MG TAB (50 MCG) PO SCH (05:37)
[2016-04-30 05:45] LABS: CREATININE FOR GFR 1.12 MG/DL (0.55-1.02); GLOMERULAR FILTRATION RATE 52.7 (>45); POTASSIUM SERUM 3.5 MEQ/L (3.5-5.1)
[2016-04-30 06:00] VITALS: BP 130/68
[2016-04-30] MEDS: ACETAMINOPHEN TAB 650MG DOSE (2X325MG) PO PRN (07:06)
[2016-04-30 07:47] VITALS: O2SAT 96
[2016-04-30] MEDS: ADVAIR DISKUS 250/50 INH PWD INH SCH (07:47)
[2016-04-30] MEDS: ENOXAPARIN 40 MG/0.4 ML SYRINGE (J1650) SC SCH (08:44)
[2016-04-30] MEDS: buPROPion **SR TABLET** (ZYBAN) 150MG PO SCH (08:44)
[2016-04-30] MEDS: predniSONE 20 MG TAB PO SCH (08:44)
[2016-04-30] MEDS: guaiFENesin ER 600 MG TAB PO SCH (08:44)
[2016-04-30] MEDS ORDERED: ADV250INH INH (13:09)
[2016-04-30] MEDS ORDERED: PRED10TA PO (13:09)
--- NOTE | 2016-04-30 13:48 | DS.PDOC ---
Discharge Summary General Date of Admission Apr 27, 2016 at 03:26 Date of Discharge 04/30/16 Discharge Summary PROCEDURES PERFORMED DURING STAY: None. COMPLICATIONS/CHIEF COMPLAINT: Copd Exacerbation ADMISSION DIAGNOSES: 1. . COPD exacerbation secondary to viral respiratory tract infection 2. . Hypoxia requiring supplemental oxygen 3. . DISCHARGE DIAGNOSES: 1. . COPD exacerbation secondary to viral respiratory tract infection 2. . Hypoxia requiring supplemental oxygen 3. . HISTORY OF PRESENT ILLNESS: 60-year-old female with past medical history of hypothyroidism, bilateral lower extremity edema, and COPD presents to the ER with a chief complaint of worsening shortness of breath. The patient states that her , her son, and her granddaughter have all come down with a respiratory illness and that she has been having similar symptoms over the last few days. She notes that at baseline she is able to complete her activities of daily living and does not have any limitation secondary to dyspnea. However, at this time she was so short of breath that she was unable to even take a few steps to go to the bathroom. She notes that she has been having a cough productive of yellowish sputum. However, she denies any fevers, chills, chest pain, palpitations, abdominal pain, or any nausea/vomiting/diarrhea. In the ER, a chest x-ray was noted to be normal. Rapid flu test was also noted to be negative. However, a respiratory virus panel did showed the patient was positive for coronavirus. During her hospitalization, the patient was treated with steroids for her underlying COPD, and supportive treatment. The patient initially required 6 L of oxygen via nasal cannula, however this has been down titrated to 2 L of oxygen via nasal cannula. At this time, the patient states that her respiratory status has markedly improved. Today the patient was noted to be 89% on room air, however her oxygen saturation was noted to drop down to 85% on ambulation. Her oxygen saturation did improve to above 88% with 2 L of oxygen via nasal cannula. At this time, we will discharge the patient on 2 L of oxygen. I have asked the patient to follow-up with her primary care physician next week for further evaluation for the need of oxygen. DISCHARGE MEDICATIONS: Please see below. ALLERGIES: Please see below. PHYSICAL EXAMINATION ON DISCHARGE: VITAL SIGNS: Please see below. General Exam: Positive: Alert, Cooperative, No Acute Distress ENT Exam: Positive: Atraumatic, Mucous membr. moist/pink Neck Exam: Negative: JVD Chest Exam: Positive: Diminished, Other (prolonged expiratory phase), Wheezing (mild expiratory wheezing in all lung deleon) Heart Exam: Positive: Normal S1, Normal S2, Rate Normal, Regular Rhythm Abdomen Exam: Positive: Normal bowel sounds, Soft, Negative: Hepatospenomegaly, Tenderness Extremity Exam: Positive: Normal pulses, Negative: Tenderness Psych Exam: Positive: Oriented x 3 LABORATORY DATA: Please see below. IMAGING: Findings: The mediastinum and cardiac silhouette are stable and within normal limits for portable technique. The lung deleon are clear without acute consolidation, effusion, or pneumothorax. Skeletal structures are intact. Impression: Normal portable chest x-ray VTE Prophylaxis ordered?: Yes DISCHARGE CONDITION: Medically stable DISPOSITION: Home ACTIVITY: As tolerated DIET: COPD diet ITEMS TO FOLLOWUP ON OUTPATIENT: 1. . Follow with primary care physician within one week for further assessment and evaluation for the need of supplemental oxygen 2. . Finish tapering steroids dose TIME SPENT ON DISCHARGE: Greater than 30 minutes. Vital Signs/I&Os Vital Signs Date Time Temp Pulse Resp B/P Pulse Ox O2 Delivery O2 Flow Rate FiO2 04/30/16 11:20 90 04/30/16 10:50 Nasal Cannula 2.0 04/30/16 06:00 96.8 78 21 130/68 I&O- Last 24 Hours up to 6 AM 04/30/16 06:00 Intake Total 1120 ml Output Total 1025 ml Balance 95 ml Laboratory Data Labs 24H Laboratory Tests 2 04/30/16 05:14: Anion Gap 6L, Blood Urea Nitrogen 25H, Creatinine 1.12H, Sodium Level 144, Potassium Level 3.5, Chloride Level 106, Carbon Dioxide Level 32, Calcium Level 8.0L, Glomerular Filtration Rate 52.7 CBC/BMP Laboratory Tests 04/30/16 05:14 Calcium Level 8.0 L, Red Blood Count 3.91 L, Mean Corpuscular Volume 90.3, Mean Corpuscular Hemoglobin 29.0, Mean Corpuscular Hemoglobin Concent 32.1, Red Cell Distribution Width 13.6 Microbiology Microbiology 04/27/16 Blood Culture - Preliminary, Resulted No Growth after 72 hours. All specime... 04/27/16 Blood Culture - Preliminary, Resulted No Growth after 72 hours. All specime... 04/27/16 Respiratory Virus Panel (PCR) ([facility]) - Final, Complete Coronavirus Oc43 04/27/16 Influenza Virus Type A Antigen - Final, Complete 04/27/16 Influenza Virus Type B Antigen - Final, Complete Medications Scheduled Bupropion HCl (Bupropion HCl Sr) 150 Mg Tab 150 MG PO DAILY Furosemide (Furosemide) 40 Mg Tab 40 MG PO BID Levothyroxine Sodium (Synthroid) 175 Mcg Tab 175 MCG PO DAILY Losartan Potassium (Losartan Potassium) 50 Mg Tab 50 MG PO DAILY Prednisone (Prednisone) 10 Mg Tab 10 MG PO ASDIRECTED Salmeterol/Fluticasone (Advair Diskus 250-50 Mcg/Dose) 14 Puff/Inhaler Aerp 1 PUFF INH BID Scheduled PRN Albuterol Sulfate (Ventolin Hfa) 200 Puff/8 Gm Aers 2 PUFF INH Q4H PRN PRN SHORTNESS OF BREATH Allergies Coded Allergies: No Known Allergies (Unverified , 04/27/16) DARCIE HUANG MD Apr 30, 2016 13:48
[2016-04-30 14:45] VITALS: BP 162/81
== END 2016-04-30 15:30 | disposition home or self-care (01) | DRG 192 ==
LOC: M ED 00:58 → M ED INP 03:26 → M MSPAV 05:02
PROVIDERS: ADMIT Hospitalist; ATTEND Internal Medicine
DX: J44.1 Chronic obstructive pulmonary disease with (acute) exacerbation (principal); B97.29 Other coronavirus as the cause of diseases classified elsewhere; E03.9 Hypothyroidism, unspecified; R09.02 Hypoxemia; F17.210 Nicotine dependence, cigarettes, uncomplicated; F32.9 Major depressive disorder, single episode, unspecified; R60.0 Localized edema; Z79.899 Other long term (current) drug therapy; Z98.51 Tubal ligation status; Z83.3 Family history of diabetes mellitus; Z83.6 Family history of other diseases of the respiratory system

== ENCOUNTER → 2017-01-27 | Outpatient (REF) | payer OTHER ==
[~2017-01-27] MED LIST changes: +ADV250INH INH; +ALBU17IN INH; +BUPR15TASR PO; +FURO40TA2 PO; +LOSA50TA20 PO; +PRED10TA2 PO; +SYNT175T2 PO; -UNRESOLVED CLARIFICATION ENTRY XX SCH
== END ==
LOC: M LAB REF 12:32
PROVIDERS: ATTEND Internal Medicine
DX: J44.1 Chronic obstructive pulmonary disease with (acute) exacerbation (principal); R05 Cough

== ENCOUNTER 2017-05-10 11:01 | Inpatient (IN) | payer OTHER ==
[2017-05-10 11:36] LABS: BASO % 0.3 % (0.0-1.0); EOS # 0.1 10^3/uL (0.0-0.50); EOS % 0.9 % (0.0-3.0); HEMATOCRIT 16.6 % (36.0-47.0); IMMATURE GRANULOCYTE # 0.1 10^3/uL (0-0); IMMATURE GRANULOCYTE % 0.5 % (0-0); LYMPH # 3.6 10^3/uL (1.5-4.5); LYMPH % 27.4 % (24.0-44.0); MEAN CORPUSCULAR HEMOGLOBIN 23.1 pg (27.0-33.0); MEAN CORPUSCULAR HGB CONC 27.7 g/dl (32.0-36.5); MEAN CORPUSCULAR VOLUME 83.4 fl (80.0-96.0); MONO # 0.6 10^3/uL (0.0-0.8); MONO % 4.4 % (0.0-5.0); NEUTROPHILS # 8.8 10^3/uL (1.8-7.7); NEUTROPHILS % 66.5 % (36.0-66.0); PLATELET COUNT, AUTOMATED 550 10^3/uL (150-450); RED BLOOD COUNT 1.99 10^6/uL (4.00-5.40); RED CELL DISTRIBUTION WIDTH 15.9 % (11.5-14.5); WHITE BLOOD COUNT 13.2 10^3/uL (4.0-10.0)
[2017-05-10 11:42] LABS: ADD MANUAL DIFFER NO; DIFF SLIDE NUMBER 201; HEMOGLOBIN 4.6 g/dl (12.0-16.0)
[2017-05-10 11:45] LABS: INR 1.06; PROTHROMBIN TIME 13.9 SECONDS (12.4-14.5)
[2017-05-10 11:46] LABS: PARTIAL THROMBOPLASTIN TIME 24.1 SECONDS (26.8-37.9)
[2017-05-10] MEDS: NS 500 ML IV (11:55)
[2017-05-10 12:00] LABS: ALBUMIN 2.9 GM/DL (3.2-5.2); ALBUMIN/GLOBULIN RATIO 0.76 (1.00-1.93); ALKALINE PHOSPHATASE 153 U/L (45-117); ALT/SGPT 35 U/L (12-78); AMYLASE 22 U/L (25-115); ANION GAP 12 MEQ/L (8-16); AST/SGOT 52 U/L (7-37); BILIRUBIN,DIRECT 0.2 MG/DL (0.0-0.2); BILIRUBIN,TOTAL 0.6 MG/DL (0.2-1.0); BLOOD UREA NITROGEN 8 MG/DL (7-18); CALCIUM LEVEL 8.8 MG/DL (8.8-10.2); CARBON DIOXIDE LEVEL 25 MEQ/L (21-32); CHLORIDE LEVEL 98 MEQ/L (98-107); CPK CREATINE PHOSPHOKINASE 54 U/L (26-192); CREATININE FOR GFR 1.12 MG/DL (0.55-1.30); GLOMERULAR FILTRATION RATE 52.5 (>45); GLUCOSE, FASTING 492 MG/DL (70-100); LIPASE 174 U/L (73-393); MB/CK RELATIVE INDEX 1.85 (< OR =4); POTASSIUM SERUM 3.5 MEQ/L (3.5-5.1); SODIUM LEVEL 135 MEQ/L (136-145); TOTAL PROTEIN 6.7 GM/DL (6.4-8.2); TROPONIN I < 0.02 NG/ML (< 0.10)
[2017-05-10 12:10] LABS: LACTIC ACID SEPSIS PROTOCOL 3.4 MMOL/L (0.4-2.0)
[2017-05-10] MEDS: IPRATROPIUM 0.5MG/ALBUTEROL 2.5MG INH SOL UD 3ML (DUONEB)(J7620) NEB (12:13)
[2017-05-10] MEDS: ALBUTEROL SULFATE 2.5 MG/0.5 ML INH NEB SOLN INH (12:13)
[2017-05-10 12:31] LABS: IMMEDIATE SPIN CROSSMATCH 1 1
[2017-05-10 12:41] LABS: ABG pH (ARTERIAL) 7.474 UNITS (7.350-7.450)
[2017-05-10 12:42] LABS: ABG BASE EXCESS 1.5 (-2.0-2.0); ABG HCO3 25.3 MEQ/L (22.0-26.0); ABG O2 SATURATION 95.3 % (95.0-99.0); ABG PARTIAL PRESSURE CO2 35.2 mmHg (35.0-45.0); ABG PARTIAL PRESSURE O2 74.7 mmHg (75.0-100.0); ABG STANDARD HCO3 25.8 MEQ/L (22.0-26.0); ABG TOTAL CO2 26.4 MEQ/L (23.0-31.0)
[2017-05-10] MEDS: HumuLIN R (REGULAR) INSULIN (NovoLIN R) **100U/ML** PER UNIT IV (13:46)
[2017-05-10] MEDS ORDERED: NS 1,000 ML IV (15:00)
[2017-05-10 17:03] LABS: BEDSIDE GLUCOSE 302 MG/DL (80-115)
[2017-05-10 17:03] LABS: BEDSIDE GLUCOSE 313 MG/DL (80-115)
[2017-05-10 20:40] LABS: HEMOGLOBIN 7.1 g/dl (12.0-16.0)
[2017-05-10 20:47] LABS: ANION GAP 9 MEQ/L (8-16); BLOOD UREA NITROGEN 6 MG/DL (7-18); CALCIUM LEVEL 8.1 MG/DL (8.8-10.2); CARBON DIOXIDE LEVEL 25 MEQ/L (21-32); CHLORIDE LEVEL 102 MEQ/L (98-107); CREATININE FOR GFR 0.78 MG/DL (0.55-1.30); GLOMERULAR FILTRATION RATE > 60.0 (>45); GLUCOSE, FASTING 234 MG/DL (70-100); POTASSIUM SERUM 3.3 MEQ/L (3.5-5.1); SODIUM LEVEL 136 MEQ/L (136-145)
[2017-05-10] MEDS: ADVAIR HFA 115/21MCG INHALER INH (21:19)
[2017-05-10] MEDS ORDERED: DEXTROSE 50% 50 ML SYRINGE IV (22:30)
[2017-05-10] MEDS ORDERED: GLUCAGON FOR INJ 1 MG VIAL (J1610) SC (22:30)
[2017-05-10] MEDS ORDERED: GLUCOSE 4 GM CHEW TABLET PO (22:30)
[2017-05-10] MEDS: buPROPion **SR TABLET** (ZYBAN) 150MG PO (22:42)
[2017-05-10] MEDS: MONTELUKAST 10 MG TAB PO (22:42)
[2017-05-10] MEDS: PANTOPRAZOLE 40MG INJ (PROTONIX) (C9113) IV (22:42)
[2017-05-11] MEDS: HumaLOG INSULIN (NovoLOG) PER UNIT SC ×4 (00:19→17:53)
[2017-05-11 00:28] LABS: BEDSIDE GLUCOSE 294 MG/DL (80-115)
[2017-05-11 00:41] LABS: HEMOGLOBIN 6.8 g/dl (12.0-16.0)
[2017-05-11 00:51] LABS: IMMEDIATE SPIN CROSSMATCH 1 3
[2017-05-11 05:05] LABS: HEMATOCRIT 25.3 % (36.0-47.0); HEMOGLOBIN 7.8 g/dl (12.0-16.0); MEAN CORPUSCULAR HEMOGLOBIN 25.6 pg (27.0-33.0); MEAN CORPUSCULAR HGB CONC 30.8 g/dl (32.0-36.5); PLATELET COUNT, AUTOMATED 466 10^3/uL (150-450); RED BLOOD COUNT 3.05 10^6/uL (4.00-5.40); RED CELL DISTRIBUTION WIDTH 15.7 % (11.5-14.5); WHITE BLOOD COUNT 12.9 10^3/uL (4.0-10.0)
[2017-05-11] MEDS: LEVOTHYROXINE 150MCG TABLET (0.15MG) PO (05:22)
[2017-05-11] MEDS: LEVOTHYROXINE 25MCG TABLET (0.025MG) PO (05:22)
[2017-05-11 05:25] LABS: ANION GAP 9 MEQ/L (8-16); BLOOD UREA NITROGEN 5 MG/DL (7-18); CALCIUM LEVEL 7.8 MG/DL (8.8-10.2); CARBON DIOXIDE LEVEL 27 MEQ/L (21-32); CHLORIDE LEVEL 102 MEQ/L (98-107); CREATININE FOR GFR 0.74 MG/DL (0.55-1.30); ESTIMATED AVERAGE GLUCOSE 237 MG/DL (60-110); GLOMERULAR FILTRATION RATE > 60.0 (>45); GLUCOSE, FASTING 198 MG/DL (70-100); HEMOGLOBIN A1c 9.9 %; SODIUM LEVEL 138 MEQ/L (136-145)
[2017-05-11] MEDS: POTASSIUM CHLORIDE 10 MEQ SR TABLET PO ×3 (05:42→17:52)
[2017-05-11] MEDS: ADVAIR HFA 115/21MCG INHALER INH ×2 (07:38→19:48)
[2017-05-11] MEDS: PANTOPRAZOLE 40MG INJ (PROTONIX) (C9113) IV ×2 (09:27→21:05)
[2017-05-11] MEDS: buPROPion **SR TABLET** (ZYBAN) 150MG PO ×2 (09:28→21:05)
[2017-05-11] MEDS: GOLYTELY SOLN 4000 ML BTL PO (10:54)
[2017-05-11 12:24] LABS: BEDSIDE GLUCOSE 363 MG/DL (80-115)
[2017-05-11] MEDS ORDERED: IPRATROPIUM 0.5MG/ALBUTEROL 2.5MG INH SOL UD 3ML (DUONEB)(J7620) NEB (13:00)
[2017-05-11] MEDS: IPRATROPIUM 0.5MG/ALBUTEROL 2.5MG INH SOL UD 3ML (DUONEB)(J7620) NEB ×2 (14:00→19:57)
[2017-05-11 14:20] LABS: HEMATOCRIT 29.5 % (36.0-47.0); HEMOGLOBIN 9.4 g/dl (12.0-16.0)
[2017-05-11 14:35] LABS: POTASSIUM SERUM 3.4 MEQ/L (3.5-5.1)
[2017-05-11 17:39] LABS: BEDSIDE GLUCOSE 161 MG/DL (80-115)
[2017-05-11 17:43] LABS: MAGNESIUM LEVEL 2.1 MG/DL (1.8-2.4)
[2017-05-11] MEDS: KCL 10MEQ IN 100ML SWI (KRUN) 10 MEQ in APPROPRIATE DILUENT 1 EA IV ×2 (17:52→19:32)
[2017-05-11] MEDS: ACETAMINOPHEN TAB 650MG DOSE (2X325MG) PO (17:53)
[2017-05-11] MEDS: MONTELUKAST 10 MG TAB PO (21:05)
[2017-05-12] MEDS: HumaLOG INSULIN (NovoLOG) PER UNIT SC ×5 (00:08→21:00)
[2017-05-12 00:13] LABS: BEDSIDE GLUCOSE 206 MG/DL (80-115)
[2017-05-12] MEDS: IPRATROPIUM 0.5MG/ALBUTEROL 2.5MG INH SOL UD 3ML (DUONEB)(J7620) NEB ×4 (02:00→20:00)
[2017-05-12 04:18] LABS: HEMATOCRIT 29.4 % (36.0-47.0); HEMOGLOBIN 9.3 g/dl (12.0-16.0); MEAN CORPUSCULAR HEMOGLOBIN 26.5 pg (27.0-33.0); MEAN CORPUSCULAR HGB CONC 31.6 g/dl (32.0-36.5); MEAN CORPUSCULAR VOLUME 83.8 fl (80.0-96.0); PLATELET COUNT, AUTOMATED 435 10^3/uL (150-450); RED BLOOD COUNT 3.51 10^6/uL (4.00-5.40); WHITE BLOOD COUNT 12.8 10^3/uL (4.0-10.0)
[2017-05-12 04:37] LABS: ANION GAP 7 MEQ/L (8-16); BLOOD UREA NITROGEN 2 MG/DL (7-18); CALCIUM LEVEL 7.9 MG/DL (8.8-10.2); CARBON DIOXIDE LEVEL 25 MEQ/L (21-32); CHLORIDE LEVEL 110 MEQ/L (98-107); CREATININE FOR GFR 0.74 MG/DL (0.55-1.30); GLOMERULAR FILTRATION RATE > 60.0 (>45); GLUCOSE, FASTING 158 MG/DL (70-100); POTASSIUM SERUM 3.6 MEQ/L (3.5-5.1); SODIUM LEVEL 142 MEQ/L (136-145)
[2017-05-12] MEDS: LEVOTHYROXINE 25MCG TABLET (0.025MG) PO (05:47)
[2017-05-12] MEDS: LEVOTHYROXINE 150MCG TABLET (0.15MG) PO (05:47)
[2017-05-12 05:59] LABS: BEDSIDE GLUCOSE 184 MG/DL (80-115)
[2017-05-12] MEDS: buPROPion **SR TABLET** (ZYBAN) 150MG PO ×2 (08:02→21:17)
[2017-05-12] MEDS: PANTOPRAZOLE 40MG INJ (PROTONIX) (C9113) IV ×2 (08:02→21:17)
[2017-05-12] MEDS: POTASSIUM CHLORIDE 10 MEQ SR TABLET PO (08:03)
[2017-05-12] MEDS: ADVAIR HFA 115/21MCG INHALER INH ×2 (08:27→20:44)
[2017-05-12 12:05] LABS: BEDSIDE GLUCOSE 171 MG/DL (80-115)
[2017-05-12] MEDS ORDERED: PROPOFOL 200 MG/20 ML VIAL As Ordered ×2 (13:05)
[2017-05-12] MEDS ORDERED: LIDOCAINE 2% INJ 100 MG/5 ML SDV (FOR ANES.) As Ordered (13:05)
[2017-05-12 17:48] LABS: BEDSIDE GLUCOSE 220 MG/DL (80-115)
[2017-05-12] MEDS: MONTELUKAST 10 MG TAB PO (21:17)
[2017-05-12 21:31] LABS: BEDSIDE GLUCOSE 212 MG/DL (80-115)
[2017-05-13] MEDS: IPRATROPIUM 0.5MG/ALBUTEROL 2.5MG INH SOL UD 3ML (DUONEB)(J7620) NEB ×4 (02:00→20:00)
[2017-05-13] MEDS: LEVOTHYROXINE 25MCG TABLET (0.025MG) PO (06:02)
[2017-05-13] MEDS: LEVOTHYROXINE 150MCG TABLET (0.15MG) PO (06:02)
[2017-05-13 06:39] LABS: HEMATOCRIT 29.3 % (36.0-47.0); MEAN CORPUSCULAR HEMOGLOBIN 26.9 pg (27.0-33.0); MEAN CORPUSCULAR HGB CONC 30.7 g/dl (32.0-36.5); MEAN CORPUSCULAR VOLUME 87.5 fl (80.0-96.0); PLATELET COUNT, AUTOMATED 382 10^3/uL (150-450); RED BLOOD COUNT 3.35 10^6/uL (4.00-5.40); RED CELL DISTRIBUTION WIDTH 17.4 % (11.5-14.5); WHITE BLOOD COUNT 12.6 10^3/uL (4.0-10.0)
[2017-05-13 06:57] LABS: ANION GAP 8 MEQ/L (8-16); BLOOD UREA NITROGEN 3 MG/DL (7-18); CALCIUM LEVEL 8.3 MG/DL (8.8-10.2); CARBON DIOXIDE LEVEL 27 MEQ/L (21-32); CHLORIDE LEVEL 104 MEQ/L (98-107); CREATININE FOR GFR 0.81 MG/DL (0.55-1.30); GLOMERULAR FILTRATION RATE > 60.0 (>45); GLUCOSE, FASTING 206 MG/DL (70-100); POTASSIUM SERUM 3.7 MEQ/L (3.5-5.1); SODIUM LEVEL 139 MEQ/L (136-145)
[2017-05-13] MEDS: ADVAIR HFA 115/21MCG INHALER INH ×2 (07:26→20:46)
[2017-05-13] MEDS: buPROPion **SR TABLET** (ZYBAN) 150MG PO ×2 (09:21→21:00)
[2017-05-13] MEDS: PANTOPRAZOLE 40MG TAB (PROTONIX) PO ×2 (09:21→21:00)
[2017-05-13] MEDS: HumaLOG INSULIN (NovoLOG) PER UNIT SC ×4 (09:22→21:00)
[2017-05-13] MEDS: metFORMIN (GLUCOPHAGE) 500 MG TAB PO ×2 (11:57→17:29)
[2017-05-13 18:14] LABS: BEDSIDE GLUCOSE 207 MG/DL (80-115)
[2017-05-13 18:14] LABS: BEDSIDE GLUCOSE 184 MG/DL (80-115)
[2017-05-13] MEDS: MONTELUKAST 10 MG TAB PO (21:00)
[2017-05-13 21:01] LABS: BEDSIDE GLUCOSE 191 MG/DL (80-115)
[2017-05-14] MEDS: IPRATROPIUM 0.5MG/ALBUTEROL 2.5MG INH SOL UD 3ML (DUONEB)(J7620) NEB ×4 (00:53→20:00)
[2017-05-14] MEDS: LEVOTHYROXINE 25MCG TABLET (0.025MG) PO (05:18)
[2017-05-14] MEDS: LEVOTHYROXINE 150MCG TABLET (0.15MG) PO (05:18)
[2017-05-14 05:58] LABS: HEMATOCRIT 31.9 % (36.0-47.0); HEMOGLOBIN 9.7 g/dl (12.0-16.0); MEAN CORPUSCULAR HEMOGLOBIN 26.5 pg (27.0-33.0); MEAN CORPUSCULAR HGB CONC 30.4 g/dl (32.0-36.5); MEAN CORPUSCULAR VOLUME 87.2 fl (80.0-96.0); PLATELET COUNT, AUTOMATED 420 10^3/uL (150-450); RED BLOOD COUNT 3.66 10^6/uL (4.00-5.40); RED CELL DISTRIBUTION WIDTH 17.7 % (11.5-14.5); WHITE BLOOD COUNT 12.5 10^3/uL (4.0-10.0)
[2017-05-14 06:18] LABS: ANION GAP 9 MEQ/L (8-16); BLOOD UREA NITROGEN 4 MG/DL (7-18); CALCIUM LEVEL 8.2 MG/DL (8.8-10.2); CARBON DIOXIDE LEVEL 27 MEQ/L (21-32); CHLORIDE LEVEL 107 MEQ/L (98-107); CREATININE FOR GFR 0.93 MG/DL (0.55-1.30); GLOMERULAR FILTRATION RATE > 60.0 (>45); GLUCOSE, FASTING 179 MG/DL (70-100); POTASSIUM SERUM 3.6 MEQ/L (3.5-5.1); SODIUM LEVEL 143 MEQ/L (136-145)
[2017-05-14] MEDS: ADVAIR HFA 115/21MCG INHALER INH ×2 (07:30→20:27)
[2017-05-14] MEDS: HumaLOG INSULIN (NovoLOG) PER UNIT SC ×4 (08:17→21:00)
[2017-05-14] MEDS: PANTOPRAZOLE 40MG TAB (PROTONIX) PO ×2 (08:18→20:30)
[2017-05-14] MEDS: metFORMIN (GLUCOPHAGE) 500 MG TAB PO ×2 (08:18→17:32)
[2017-05-14] MEDS: buPROPion **SR TABLET** (ZYBAN) 150MG PO ×2 (08:18→20:30)
[2017-05-14 12:39] LABS: BEDSIDE GLUCOSE 154 MG/DL (80-115)
[2017-05-14 17:15] LABS: BEDSIDE GLUCOSE 170 MG/DL (80-115)
[2017-05-14] MEDS: MONTELUKAST 10 MG TAB PO (20:30)
[2017-05-14 20:48] LABS: BEDSIDE GLUCOSE 145 MG/DL (80-115)
[2017-05-15] MEDS: IPRATROPIUM 0.5MG/ALBUTEROL 2.5MG INH SOL UD 3ML (DUONEB)(J7620) NEB ×4 (01:19→20:00)
[2017-05-15] MEDS: LEVOTHYROXINE 25MCG TABLET (0.025MG) PO (05:34)
[2017-05-15] MEDS: LEVOTHYROXINE 150MCG TABLET (0.15MG) PO (05:34)
[2017-05-15 06:23] LABS: HEMATOCRIT 30.3 % (36.0-47.0); MEAN CORPUSCULAR HGB CONC 29.7 g/dl (32.0-36.5); MEAN CORPUSCULAR VOLUME 87.6 fl (80.0-96.0); PLATELET COUNT, AUTOMATED 390 10^3/uL (150-450); RED BLOOD COUNT 3.46 10^6/uL (4.00-5.40); RED CELL DISTRIBUTION WIDTH 17.7 % (11.5-14.5); WHITE BLOOD COUNT 11.1 10^3/uL (4.0-10.0)
[2017-05-15 06:41] LABS: ANION GAP 9 MEQ/L (8-16); BLOOD UREA NITROGEN 5 MG/DL (7-18); CALCIUM LEVEL 8.6 MG/DL (8.8-10.2); CARBON DIOXIDE LEVEL 28 MEQ/L (21-32); CHLORIDE LEVEL 106 MEQ/L (98-107); CREATININE FOR GFR 0.87 MG/DL (0.55-1.30); GLOMERULAR FILTRATION RATE > 60.0 (>45); GLUCOSE, FASTING 129 MG/DL (70-100); POTASSIUM SERUM 3.3 MEQ/L (3.5-5.1); SODIUM LEVEL 143 MEQ/L (136-145)
[2017-05-15] MEDS: HumaLOG INSULIN (NovoLOG) PER UNIT SC ×4 (07:30→21:00)
[2017-05-15] MEDS ORDERED: E-Z-PAQUE 96% w/w SUSP 176GM BTL As Ordered (07:52)
[2017-05-15] MEDS ORDERED: E-Z-GAS II EFFERVESCENT PACKET (SODIUM BICARB./CITRIC ACID/SIMETHICONE) As Ordered (07:52)
[2017-05-15] MEDS ORDERED: E-Z-HD 98% w/w 340GM SUSP BTL As Ordered (07:53)
[2017-05-15] MEDS: buPROPion **SR TABLET** (ZYBAN) 150MG PO ×2 (10:22→20:19)
[2017-05-15] MEDS: metFORMIN (GLUCOPHAGE) 500 MG TAB PO ×2 (10:22→17:45)
[2017-05-15] MEDS: PANTOPRAZOLE 40MG TAB (PROTONIX) PO ×2 (10:22→20:19)
[2017-05-15] MEDS: POTASSIUM CHLORIDE 10 MEQ SR TABLET PO (10:23)
[2017-05-15] MEDS: ADVAIR HFA 115/21MCG INHALER INH ×2 (11:00→20:51)
[2017-05-15 11:54] LABS: BEDSIDE GLUCOSE 233 MG/DL (80-115)
[2017-05-15] MEDS: MONTELUKAST 10 MG TAB PO (20:19)
[2017-05-16] MEDS: IPRATROPIUM 0.5MG/ALBUTEROL 2.5MG INH SOL UD 3ML (DUONEB)(J7620) NEB ×2 (02:00→07:19)
[2017-05-16 04:29] LABS: BEDSIDE GLUCOSE 153 MG/DL (80-115)
[2017-05-16 04:29] LABS: BEDSIDE GLUCOSE 120 MG/DL (80-115)
[2017-05-16] MEDS: LEVOTHYROXINE 150MCG TABLET (0.15MG) PO (06:00)
[2017-05-16] MEDS: LEVOTHYROXINE 25MCG TABLET (0.025MG) PO (06:00)
[2017-05-16 06:40] LABS: HEMATOCRIT 30.9 % (36.0-47.0); HEMOGLOBIN 9.2 g/dl (12.0-16.0); MEAN CORPUSCULAR HEMOGLOBIN 25.9 pg (27.0-33.0); MEAN CORPUSCULAR HGB CONC 29.8 g/dl (32.0-36.5); PLATELET COUNT, AUTOMATED 396 10^3/uL (150-450); RED BLOOD COUNT 3.55 10^6/uL (4.00-5.40); RED CELL DISTRIBUTION WIDTH 17.4 % (11.5-14.5); WHITE BLOOD COUNT 10.5 10^3/uL (4.0-10.0)
[2017-05-16 07:03] LABS: ANION GAP 9 MEQ/L (8-16); BLOOD UREA NITROGEN 6 MG/DL (7-18); CALCIUM LEVEL 8.5 MG/DL (8.8-10.2); CARBON DIOXIDE LEVEL 27 MEQ/L (21-32); CHLORIDE LEVEL 106 MEQ/L (98-107); CREATININE FOR GFR 0.88 MG/DL (0.55-1.30); GLOMERULAR FILTRATION RATE > 60.0 (>45); GLUCOSE, FASTING 156 MG/DL (70-100); POTASSIUM SERUM 3.7 MEQ/L (3.5-5.1); SODIUM LEVEL 142 MEQ/L (136-145)
[2017-05-16] MEDS: ADVAIR HFA 115/21MCG INHALER INH (07:20)
[2017-05-16] MEDS: HumaLOG INSULIN (NovoLOG) PER UNIT SC (08:18)
[2017-05-16] MEDS: buPROPion **SR TABLET** (ZYBAN) 150MG PO (08:18)
[2017-05-16] MEDS: PANTOPRAZOLE 40MG TAB (PROTONIX) PO (08:19)
[2017-05-16] MEDS: metFORMIN (GLUCOPHAGE) 500 MG TAB PO (08:19)
== END 2017-05-16 11:00 | disposition home or self-care (01) | DRG 812 ==
LOC: M MS5PR 05-12 22:56 → M ED 11:01 → M ED INP 15:06 → M ICU 21:39
PROC: 0DBP8ZX Excision of Rectum, Via Natural or Artificial Opening Endoscopic, Diagnostic (ICD-10-PCS; principal; 2017-05-12 13:03)
PROC: 30233N1 Transfusion of Nonautologous Red Blood Cells into Peripheral Vein, Percutaneous Approach (ICD-10-PCS; 2017-05-12 13:03)
PROC: 0D958ZX Drainage of Esophagus, Via Natural or Artificial Opening Endoscopic, Diagnostic (ICD-10-PCS; 2017-05-12 13:03)
DX: D62 Acute posthemorrhagic anemia (principal); J96.11 Chronic respiratory failure with hypoxia; E11.9 Type 2 diabetes mellitus without complications; F32.9 Major depressive disorder, single episode, unspecified; E03.9 Hypothyroidism, unspecified; J44.9 Chronic obstructive pulmonary disease, unspecified; K64.0 First degree hemorrhoids; K44.9 Diaphragmatic hernia without obstruction or gangrene; K26.9 Duodenal ulcer, unspecified as acute or chronic, without hemorrhage or perforation; K62.1 Rectal polyp; Z79.899 Other long term (current) drug therapy; I10 Essential (primary) hypertension

== ENCOUNTER → 2017-06-23 | Outpatient (REF) | payer OTHER ==
[2017-06-23 16:58] LABS: IRON (FE) 29 UG/DL (50-170)
== END ==
LOC: M LAB REF 16:35
DX: D64.9 Anemia, unspecified (principal)

== ENCOUNTER → 2017-10-20 | Outpatient (REF) | payer OTHER ==
[2017-10-20 13:35] LABS: IRON (FE) 18 UG/DL (50-170); PERCENT SATURATION 4.1 % (13.2-45.0); TOTAL IRON BINDING CAPACITY 434 UG/DL (250-450)
== END ==
LOC: M LAB REF 13:07
DX: D64.9 Anemia, unspecified (principal)

== ENCOUNTER → 2018-02-07 | Outpatient (REF) | payer OTHER ==
[2018-02-07 18:12] LABS: FERRITIN 19 NG/ML (8-252); IRON (FE) 28 UG/DL (50-170); PERCENT SATURATION 6.1 % (13.2-45.0); TOTAL IRON BINDING CAPACITY 459 UG/DL (250-450)
== END ==
LOC: M LAB REF 17:16
DX: D64.9 Anemia, unspecified (principal)

== ENCOUNTER → 2018-05-10 | Outpatient (REF) | payer OTHER ==
[~2018-05-10] MED LIST changes: +ADVI200T PO; +ADVOKIT XX; +ADVOMIS4 XX; +GLUC500T PO; -LOSA50TA20 PO; +LOSA50TA88 PO; +MONT10TA2 PO
[2018-05-10 18:40] LABS: FERRITIN 17 NG/ML (8-252); IRON (FE) 29 UG/DL (50-170); PERCENT SATURATION 5.9 % (13.2-45.0); TOTAL IRON BINDING CAPACITY 495 UG/DL (250-450)
[2018-05-11 11:59] LABS: THYROGLOBULIN ANTIBODY > 500.0 U/ML (<60.0); THYROID PEROXIDASE ANTIBODY > 1300.0 U/ML (<60.0)
== END ==
LOC: M LAB REF 16:53
PROVIDERS: ATTEND Internal Medicine
DX: D64.9 Anemia, unspecified (principal); E03.9 Hypothyroidism, unspecified

== ENCOUNTER → 2018-10-30 | Outpatient (REF) | payer OTHER ==
[2018-10-30 18:54] LABS: PERCENT SATURATION 33.8 % (13.2-45.0)
== END ==
LOC: M LAB REF 16:52
PROVIDERS: ATTEND Internal Medicine
DX: D50.0 Iron deficiency anemia secondary to blood loss (chronic) (principal)

== ENCOUNTER → 2019-08-09 | Outpatient (REF) | payer OTHER ==
[~2019-08-09] MED LIST changes: -MONT10TA2 PO; +MONT10TA4 PO
[2019-08-09 17:07] LABS: PERCENT SATURATION 6.8 % (13.2-45.0)
== END ==
LOC: M LAB REF 16:04
PROVIDERS: ATTEND Internal Medicine
DX: D64.9 Anemia, unspecified (principal)

== ENCOUNTER 2019-09-08 19:26 | Inpatient (IN) | payer OTHER ==
[~2019-09-08] VITALS: Ht 157.5 cm; Wt 84.2 kg
[2019-09-08] MEDS ORDERED: NS 1,000 ML IV ONE (20:00)
[2019-09-08] MEDS ORDERED: JARD1TAB PO (20:01)
[2019-09-08] MEDS ORDERED: OMEP-218 PO (20:01)
[2019-09-08] MEDS ORDERED: ALLE1TAB23 PO (20:01)
[2019-09-08 20:13] LABS: BASO # 0.1 10^3/uL (0.0-0.2); BASO % 0.5 % (0.0-1.0); EOS # 0.1 10^3/uL (0.0-0.5); EOS % 0.8 % (0.0-3.0); HEMATOCRIT 27.6 % (36.0-47.0); HEMOGLOBIN 7.7 g/dl (12.0-15.5); LYMPH # 3.2 10^3/uL (1.5-5.0); MEAN CORPUSCULAR HEMOGLOBIN 23.1 pg (27.0-33.0); MEAN CORPUSCULAR HGB CONC 27.9 g/dl (32.0-36.5); MEAN CORPUSCULAR VOLUME 82.9 fl (80.0-96.0); MONO # 0.7 10^3/uL (0.0-0.8); MONO % 4.4 % (0.0-5.0); NEUTROPHILS # 12.4 10^3/uL (1.5-8.5); NEUTROPHILS % 74.8 % (36.0-66.0); PLATELET COUNT, AUTOMATED 343 10^3/uL (150-450); RED BLOOD COUNT 3.33 10^6/uL (4.00-5.40); WHITE BLOOD COUNT 16.6 10^3/uL (4.0-10.0)
[2019-09-08 20:24] LABS: INR 1.13; PROTHROMBIN TIME 14.2 SECONDS (11.8-14.0)
[2019-09-08 20:25] LABS: PARTIAL THROMBOPLASTIN TIME 28.2 SECONDS (25.0-38.4)
[2019-09-08] MEDS ORDERED: METF-838 PO (20:36)
[2019-09-08] MEDS ORDERED: ADV500INH INH (20:36)
[2019-09-08] MEDS ORDERED: LOSA100T8 PO (20:36)
[2019-09-08] MEDS ORDERED: LEVO200T4 PO (20:36)
[2019-09-08] MEDS ORDERED: ALBU8.5H INH (20:37)
[2019-09-08 20:46] LABS: ALBUMIN 3.1 GM/DL (3.2-5.2); BILIRUBIN,DIRECT 0.2 MG/DL (0.0-0.2); BILIRUBIN,TOTAL 0.6 MG/DL (0.2-1.0); CALCIUM LEVEL 8.4 MG/DL (8.8-10.2); CREATININE FOR GFR 1.32 MG/DL (0.55-1.30); GLOMERULAR FILTRATION RATE 43.1 (>45); POTASSIUM SERUM 4.6 MEQ/L (3.5-5.1); TOTAL PROTEIN 6.6 GM/DL (6.4-8.2)
[2019-09-08] MEDS ORDERED: ALBUTEROL SULFATE 2.5 MG/0.5 ML INH NEB SOLN INH PRN (21:00)
--- NOTE | 2019-09-08 21:05 | HPEPDOC ---
General Date of Admission 09/08/2019 Date of Service: Sep 08, 2019 Chief Complaint The patient is a 63-year-old female who presented to the emergency room with complaints of dark/red colored stool History of Present Illness Patient is a 63-year-old female with a PMHx of HTN, NIDDM2, DLP, COPD, Hypothyroidism, Depression, Chronic back pain, Hx of Gastric Ulcers / GERD who presented to the emergency room with complaints of dark/red colored stool. Patient reported that this afternoon she had 2 large volume bowel movements that were described as dark/bloody. Patient came nauseous and vomited one time, she reported that her vomitus did not contain any blood, but was described as contai eva lasagna. Patient denies any abdominal pain. Denies any urinary discomfort. Patient denies any chest pain, shortness of breath, cough, fevers or chills or any lightheadedness or dizziness. Patient reports her appetite is fairly normal. Denies any significant changes in her weight. Home Medications Scheduled Bupropion HCl (Bupropion HCl Sr) 150 Mg Tab, 150 MG PO BID, (Reported) Empagliflozin (Jardiance) 10 Mg Tablet, 10 MG PO DAILY, (Reported) Fexofenadine HCl (Fexofenadine HCl) 180 Mg Tablet, 180 MG PO QAM, (Reported) Levothyroxine Sodium (Levothyroxine Sodium) 200 Mcg Tablet, 200 MCG PO QAM, (Reported) Losartan/Hydrochlorothiazide (Losartan-Hctz 100-12.5 mg Tab) 1 Each Tablet, 1 TAB PO DAILY, (Reported) Metformin HCl (Metformin HCl ER) 500 Mg Tab.er.24h, 500 MG PO BID, (Reported) Montelukast Sodium (Montelukast Sodium) 10 Mg Tab, 10 MG PO QHS, (Reported) Omeprazole (Omeprazole) 20 Mg Capsule.dr, 40 MG PO DAILY, (Reported) Salmeterol/Fluticasone (Advair 500-50 Diskus) 1 Each Blst.w.dev, 1 PUFF INH BID, (Reported) Scheduled PRN Albuterol Sulfate (Albuterol Sulfate Hfa) 8.5 Gm Hfa.aer.ad, 2 PUFFS INH Q4H PRN for SHORTNESS OF BREATH, (Reported) Allergies Coded Allergies: No Known Allergies (Unverified , 09/08/19) Past Medical History Medical History HTN, NIDDM2, DLP, COPD, Hypothyroidism, Depression, Chronic back pain, Hx of Gastric Ulcers / GERD Surgical History Tubal ligation, right wrist surgery, right elbow surgery for nerve decompression Family History - Family history was reviewed and is noncontributory to this hospitalization Social History - Denies the use of alcohol or illicit drugs; patient is an active smoker since he was 17 years old - Denies recent travel or sick contacts - Lives with - Occupation; works a part-time job at [employer] Review of Systems Other systems 10 point review of systems is negative otherwise stated in HPI Vital Signs - Vitals: BP 104/65, HR 108, RR 20, Sat 93%RA, Temp 97.3F - General: Lying in bed, does not appear to be in any acute distress, AAOx3 - HEENT: NC, AT, PERRLA, EOMI - CVS: Tachycardia, +S1S2 - Lungs: Fair air entry bilaterally, No appreciable wheezing / rales / rhonchi - Abdomen: Soft, Non-distended, Non-tender - Extremities: No lower extremity edema, No calf tenderness - Neuro: No focal motor or sensory deficit - Skin: No visible rashes Laboratory Data Labs 24H Laboratory Tests 2 09/08/19 20:04: Immature Granulocyte % (Auto) 0.5, Neutrophils (%) (Auto) 74.8H, Lymphocytes (%) (Auto) 19.0L, Monocytes (%) (Auto) 4.4, Eosinophils (%) (Auto) 0.8, Basophils (%) (Auto) 0.5, Neutrophils # (Auto) 12.4H, Lymphocytes # (Auto) 3.2, Monocytes # (Auto) 0.7, Eosinophils # (Auto) 0.1, Basophils # (Auto) 0.1, Nucleated Red Blood Cells % (auto) 0.0, Prothrombin Time 14.2H, Prothromb Time International Ratio 1.13, Activated Partial Thromboplast Time 28.2, Anion Gap 9, Glomerular Filtration Rate 43.1L, Calcium Level 8.4L, Total Bilirubin 0.6, Direct Bilirubin 0.2, Aspartate Amino Transf (AST/SGOT) 87H, Alanine Aminotransferase (ALT/SGPT) 80H, Alkaline Phosphatase 162H, Total Protein 6.6, Albumin 3.1L, Albumin/Globulin Ratio 0.9L CBC/BMP Laboratory Tests 09/08/19 20:04 Plan / VTE VTE Prophylaxis Ordered?: Yes Plan Plan Dark colored stools - likely 2/2 GI bleed / Acute blood loss anemia - Patient presented to the emergency room after experiencing 2 large dark/red colored bowel movements - Patient is not be tachycardic emergency room - EGD completed 05/2017; nonbleeding duodenal ulcer - Colonoscopy completed ; nonbleeding internal hemorrhoids - Patient has been typed and screened; will order 2 units PRBC transfusion - Will continue check hemoglobin every 6 hours - Will start Protonix and Carafate - Case discussed with general surgery, Dr. Hightower; will be on consultation for likely EGD/colonoscopy - Patient will remain nothing by mouth HTN - Patient blood pressure is currently on the lower limits of normal - Will hold antihypertensive medications - Continue with IV fluid hydration NIDDM2 - Will start IS DLP - c/w Fexofenadine COPD - No evidence of exacerbation - c/w inhaled therapy as ordered Hypothyroidism - c/w levothyroxine Depression - c/w bupropion Chronic back pain - c/w Tylenol PRN DVT prophylaxis - Will start TEDs/GAMA Regan MD Sep 08, 2019 21:05
[2019-09-08] MEDS ORDERED: DEXTROSE 50% 50 ML SYRINGE IV PRN (21:15)
[2019-09-08] MEDS ORDERED: GLUCOSE 4GM CHEW TABLET PO PRN (21:15)
[2019-09-08] MEDS ORDERED: ACETAMINOPHEN TAB 650MG DOSE (2X325MG) PO PRN (21:15)
[2019-09-08] MEDS ORDERED: GLUCAGON INJ 1MG VIAL SC PRN (21:15)
[2019-09-08 22:14] VITALS: BP 103/53
[2019-09-08] MEDS: PANTOPRAZOLE 40MG VIAL (C9113 PER 1) IV SCH (22:57)
[2019-09-08] MEDS: MONTELUKAST 10 MG TAB PO SCH (22:57)
[2019-09-08] MEDS: NS 1,000 ML IV SCH (22:57)
[2019-09-08] MEDS: buPROPion **SR TABLET** (ZYBAN) 150MG PO SCH (22:57)
[2019-09-08] MEDS: SUCRALFATE SUSP 1GM/10ML UD PO SCH (23:04)
[2019-09-08 23:55] VITALS: BP 96/53
[2019-09-09] VITALS (17 sets, daily range): BP systolic 96–130; BP diastolic 52–78
[2019-09-09] MEDS: HumaLOG INSULIN (NovoLOG) PER UNIT SC SCH ×5 (00:09→23:18)
[2019-09-09] MEDS: ADVAIR HFA 115/21MCG INHALER INH SCH ×3 (00:42→19:41)
[2019-09-09] MEDS: SUCRALFATE SUSP 1GM/10ML UD PO SCH ×4 (07:12→23:25)
[2019-09-09] MEDS: LEVOTHYROXINE 100MCG TABLET (0.1MG) PO SCH (07:14)
[2019-09-09 07:41] LABS: BASO # 0.1 10^3/uL (0.0-0.2); BASO % 0.8 % (0.0-1.0); EOS # 0.1 10^3/uL (0.0-0.5); EOS % 0.9 % (0.0-3.0); HEMATOCRIT 33.4 % (36.0-47.0); HEMOGLOBIN 10.2 g/dl (12.0-15.5); LYMPH # 3.2 10^3/uL (1.5-5.0); LYMPH % 24.9 % (24.0-44.0); MEAN CORPUSCULAR HEMOGLOBIN 25.8 pg (27.0-33.0); MEAN CORPUSCULAR HGB CONC 30.5 g/dl (32.0-36.5); MEAN CORPUSCULAR VOLUME 84.6 fl (80.0-96.0); MONO # 0.6 10^3/uL (0.0-0.8); MONO % 4.9 % (0.0-5.0); NEUTROPHILS # 8.7 10^3/uL (1.5-8.5); NEUTROPHILS % 67.6 % (36.0-66.0); PLATELET COUNT, AUTOMATED 250 10^3/uL (150-450); RED BLOOD COUNT 3.95 10^6/uL (4.00-5.40); WHITE BLOOD COUNT 12.9 10^3/uL (4.0-10.0)
[2019-09-09 07:53] LABS: CALCIUM LEVEL 8.1 MG/DL (8.8-10.2); CREATININE FOR GFR 1.1 MG/DL (0.55-1.30); GLOMERULAR FILTRATION RATE 53.2 (>45); MAGNESIUM LEVEL 2.2 MG/DL (1.8-2.4); POTASSIUM SERUM 4.6 MEQ/L (3.5-5.1)
[2019-09-09] MEDS: buPROPion **SR TABLET** (ZYBAN) 150MG PO SCH ×2 (08:46→20:11)
[2019-09-09] MEDS: FEXOFENADINE 60 MG TAB PO SCH (08:47)
[2019-09-09] MEDS: PANTOPRAZOLE 40MG VIAL (C9113 PER 1) IV SCH ×2 (10:37→23:25)
--- NOTE | 2019-09-09 10:51 | IPNPDOC ---
Text Note Date of Service The patient was seen on 09/09/19. NOTE Subjective: No further bowel movements, connor overnight, No nausea or vomiting. No fever or chills. No abdominal pain. Physical Exam: - Vitals: As below - General: Lying in bed, does not appear to be in any acute distress, AAOx3 - HEENT: NC, AT, PERRLA, EOMI - CVS: normal +S1S2, no rub or murmur. - Lungs: Fair air entry bilaterally, there is bilateral wheezing and ronchi, bilateral basal crackles. - Abdomen: Soft, Non-distended, Non-tender - Extremities: No lower extremity edema, No calf tenderness - Neuro: No focal motor or sensory deficit - Skin: No visible rashes Labs and radiology: reviewed Assessment and Plan: Patient is a 63-year-old female with a PMHx of HTN, NIDDM2, DLP, COPD, Hypothyroidism, Depression, Chronic back pain, Hx of Gastric Ulcers / GERD who presented to the emergency room with complaints of dark/red colored stool. Patient reported that she had 2 large volume bowel movements that were described as dark/bloody. Patient came nauseous and vomited one time, she reported that her vomitus did not contain any blood, but was descr ibed as containing lasagna. Pateint was found to be anemia and admitted for GIB. GI bleed / Acute blood loss anemia - Patient presented to the emergency room after experiencing 2 large dark/red colored bowel movements - EGD completed 05/2017; nonbleeding duodenal ulcer - Colonoscopy completed ; nonbleeding internal hemorrhoids - Received 2 units PRBC transfusion - Will continue check hemoglobin every 6 hours - Protonix and Carafate - Dr. Hightower; will be on consultation for likely EGD/colonoscopy - Patient will remain nothing by mouth HTN - Patient blood pressure is currently on the lower limits of normal - Will hold antihypertensive medications - Continue with IV fluid hydration NIDDM2 - lispro DLP - c/w Fexofenadine COPD with chronic respiratory failure with hypoxia. - No evidence of exacerbation - c/w inhaled therapy as ordered symbicort, albuterl nebs -cxr. Hypothyroidism - c/w levothyroxine Depression - c/w bupropion Chronic back pain - c/w Tylenol PRN DVT prophylaxis - Will start TEDs/Sequentials VS,Fishbone, I+O VS, Fishbone, I+O Laboratory Tests 09/08/19 20:04 09/09/19 07:21 Vital Signs Date Time Temp Pulse Resp B/P (MAP) Pulse Ox O2 Delivery O2 Flow Rate FiO2 09/09/19 06:25 97.2 92 20 110/55 95 Nasal Cannula 2.0 09/09/19 04:45 98 I&O- Last 24 Hours up to 6 AM 09/09/19 06:00 Intake Total 2200 ml Balance 2200 ml GINNY FAITH MD Sep 09, 2019 08:03
[2019-09-09 11:57] LABS: HEMATOCRIT 30.9 % (36.0-47.0); HEMOGLOBIN 9.4 g/dl (12.0-15.5)
[2019-09-09] MEDS: ALBUTEROL SULFATE 2.5 MG/0.5 ML INH NEB SOLN NEB SCH ×3 (13:12→23:22)
[2019-09-09] MEDS ORDERED: BISACODYL 5 MG TAB PO ONE (15:00)
[2019-09-09] MEDS ORDERED: GOLYTELY SOLN 4000 ML BTL PO ONE (19:00)
[2019-09-09 19:09] LABS: HEMATOCRIT 31.5 % (36.0-47.0); HEMOGLOBIN 9.6 g/dl (12.0-15.5)
[2019-09-09] MEDS: NS 1,000 ML IV SCH ×2 (19:39→22:26)
[2019-09-09] MEDS: MONTELUKAST 10 MG TAB PO SCH (20:11)
[2019-09-10] VITALS (8 sets, daily range): BP systolic 110–143; BP diastolic 54–70
[2019-09-10 00:18] LABS: HEMATOCRIT 30.7 % (36.0-47.0); HEMOGLOBIN 9.4 g/dl (12.0-15.5)
--- NOTE | 2019-09-10 02:28 | REP ---
Clinical: Coughing and wheezing . Comparison: 05/10/2017 . Findings: The mediastinum and cardiac silhouette are stable and within normal limits for portable technique. The lung deleon demonstrate chronic changes without acute consolidation, effusion, or pneumothorax. Skeletal structures are intact. Impression: Chronic stable changes bilateral bases. No acute cardiopulmonary process appreciated. Electronically Signed by Desmond Vivas MD 09/10/2019 02:18 A
[2019-09-10] MEDS ORDERED: MAGNESIUM CITRATE 300 ML BTL PO ONE (05:00)
[2019-09-10 05:15] LABS: BASO # 0.1 10^3/uL (0.0-0.2); BASO % 0.8 % (0.0-1.0); EOS # 0.2 10^3/uL (0.0-0.5); EOS % 1.3 % (0.0-3.0); HEMATOCRIT 29.4 % (36.0-47.0); LYMPH # 3.7 10^3/uL (1.5-5.0); MEAN CORPUSCULAR HEMOGLOBIN 25.6 pg (27.0-33.0); MEAN CORPUSCULAR HGB CONC 30.6 g/dl (32.0-36.5); MEAN CORPUSCULAR VOLUME 83.8 fl (80.0-96.0); MONO # 0.6 10^3/uL (0.0-0.8); MONO % 4.9 % (0.0-5.0); NEUTROPHILS # 6.9 10^3/uL (1.5-8.5); NEUTROPHILS % 60.5 % (36.0-66.0); PLATELET COUNT, AUTOMATED 226 10^3/uL (150-450); RED BLOOD COUNT 3.51 10^6/uL (4.00-5.40); WHITE BLOOD COUNT 11.5 10^3/uL (4.0-10.0)
[2019-09-10 05:35] LABS: CALCIUM LEVEL 7.8 MG/DL (8.8-10.2); CREATININE FOR GFR 1.09 MG/DL (0.55-1.30); GLOMERULAR FILTRATION RATE 53.8 (>45); MAGNESIUM LEVEL 1.9 MG/DL (1.8-2.4); POTASSIUM SERUM 3.7 MEQ/L (3.5-5.1)
[2019-09-10] MEDS: LEVOTHYROXINE 100MCG TABLET (0.1MG) PO SCH (06:01)
[2019-09-10] MEDS: SUCRALFATE SUSP 1GM/10ML UD PO SCH ×2 (06:01→11:21)
[2019-09-10] MEDS: HumaLOG INSULIN (NovoLOG) PER UNIT SC SCH ×4 (06:01→23:29)
[2019-09-10] MEDS: ADVAIR HFA 115/21MCG INHALER INH SCH ×2 (07:24→19:21)
[2019-09-10] MEDS: ALBUTEROL SULFATE 2.5 MG/0.5 ML INH NEB SOLN NEB SCH ×4 (07:24→23:07)
[2019-09-10] MEDS: FEXOFENADINE 60 MG TAB PO SCH (09:39)
[2019-09-10] MEDS: buPROPion **SR TABLET** (ZYBAN) 150MG PO SCH ×2 (09:40→20:17)
[2019-09-10] MEDS ORDERED: FLEET ENEMA PR ONE (11:00)
[2019-09-10] MEDS: PANTOPRAZOLE 40MG VIAL (C9113 PER 1) IV SCH (11:20)
--- NOTE | 2019-09-10 13:09 | IPNPDOC ---
Text Note Date of Service The patient was seen on 09/10/19. NOTE Subjective: No nausea or vomting. however could not finish the whole bowel prep. Going for EGD and colonoscopy today. Physical Exam: - Vitals: As below - General: Lying in bed, does not appear to be in any acute distress, AAOx3 - HEENT: NC, AT, PERRLA, EOMI - CVS: normal +S1S2, no rub or murmur. - Lungs: Fair air entry bilaterally, there is bilateral wheezing and ronchi, bilateral basal crackles. - Abdomen: Soft, Non-distended, Non-tender - Extremities: No lower extremity edema, No calf tenderness - Neuro: No focal motor or sensory deficit - Skin: No visible rashes Labs and radiology: reviewed Assessment and Plan: Patient is a 63-year-old female with a PMHx of HTN, NIDDM2, DLP, COPD, Hypothyroidism, Depression, Chronic back pain, Hx of Gastric Ulcers / GERD who presented to the emergency room with complaints of dark/red colored stool. Patient reported that she had 2 large volume bowel movements that were described as dark/bloody. Patient came nauseous and vomited one time, she reported that her vomitus did not contain any blood, but was described as containing lasagna. Pateint was found to be anemia and admitted for GIB. GI bleed / Acute blood loss anemia - Patient presented to the emergency room after experiencing 2 large dark/red colored bowel movements - EGD completed 05/2017; nonbleeding duodenal ulcer - Colonoscopy completed ; nonbleeding internal hemorrhoids - Received 3 units PRBC transfusion - Will continue check hemoglobin every 6 hours - Protonix and Carafate - Dr. Hightower; for likely EGD/colonoscopy - Patient will remain nothing by mouth HTN - Patient blood pressure is currently on the lower limits of normal - Will hold antihypertensive medications - Continue with IV fluid hydration NIDDM2 - lispro DLP - c/w Fexofenadine COPD with chronic respiratory failure with hypoxia. - No evidence of exacerbation - c/w inhaled therapy as ordered symbicort, albuterl nebs -cxr. Hypothyroidism - c/w levothyroxine Depression - c/w bupropion Chronic back pain - c/w Tylenol PRN DVT prophylaxis - Will start TEDs/Sequentials VS,Fishbone, I+O VS, Fishbone, I+O Laboratory Tests 09/09/19 18:47 09/10/19 00:13 09/10/19 04:54 Vital Signs Date Time Temp Pulse Resp B/P (MAP) Pulse Ox O2 Delivery O2 Flow Rate FiO2 09/10/19 12:00 97.3 94 18 143/65 (91) 92 Nasal Cannula 2.0 09/09/19 04:45 98 I&O- Last 24 Hours up to 6 AM 09/10/19 06:00 Intake Total 1825 ml Balance 1825 ml GINNY FAITH MD Sep 10, 2019 13:08
[2019-09-10 14:04] LABS: HEMATOCRIT 28.7 % (36.0-47.0); HEMOGLOBIN 8.7 g/dl (12.0-15.5)
--- NOTE | 2019-09-10 15:01 | CR.PDOC ---
General Surgery Consultation Date of Consultation 09/10/19 History and Physical CONSULT REPORT FOR: HOSPITALIST SERVICE REASON FOR CONSULTATION: GI bleeding HISTORY OF PRESENT ILLNESS: Patient is a 63-year-old female brought into the emergency room after 2 bouts of bloody bowel movements to the [facility] earlier during the day. She reports she was in her usual state of health. She denies any ongoing, accompanying abdominal discomfort nausea or bloating. She went to the bathroom and noted bloody stool in the toilet bowl or shortly thereafter after had another bout of bloody bowel movement prompting the emergency room consult. In the ER she was hemodynamically stable. Her hemoglobin and hematocrit was noted to be decreased. She subs equently received 3 units of packed RBCs with appropriate increase of her hemoglobin and hematocrit. She has not had any further bloody bowel movements. She currently denies any abdominal pain or discomfort. She describes rather darkish blood in the toilet bowl. She had a prior episode of posthemorrhagic anemia noted in 2018 for which she underwent endoscopy and colonoscopy and was found to have a nonbleeding duodenal ulcer that time. At that time she was taking NSAIDs for musculoskeletal pain which she has stopped. She has been maintained on a PPI since then which she is taking. PAST MEDICAL HISTORY: 1. Past medical history of prior GI bleed in 2018. 2. Hypertension 3. Diabetes 4. COPD on oxygen PAST SURGICAL HISTORY: INCLUDES: 1. Endoscopy in colonoscopy in 2018. 2. Tubal ligation 3. Right wrist surgery 4. Right elbow surgery PREVIOUS ANESTHESIA REACTIONS: Denies ALLERGIES: Please see below. FAMILY HISTORY: Noncontributory. HOME MEDICATIONS: Please see below. REVIEW OF SYSTEMS: GENERAL: Denies any ongoing weight loss. HEENT: Denies blurred vision and double vision. Denies ear symptoms. Denies hoarseness. NECK: Denies any neck pain CARDIOVASCULAR: Denies chest pain and palpitations. SKIN: Denies rash. NEUROLOGIC: Denies headache, stroke and transient ischemic attack. PSYCHIATRIC: Denies anxiety and depression. ENDOCRINE: Denies thyroid disease. HEMATOLOGY/ONCOLOGY: Denies bleeding or clotting disorder. HEART: Denies any chest pains, palpitations, paroxysmal dyspnea, orthopnea. PULMONARY: Patient reports COPD, shortness of breath on light activity. GASTROINTESTINAL: See HPI. GENITOURINARY: Denies dysuria, frequency, hematuria and nocturia. INFECTIOUS: Denies any recent upper respiratory tract infection, UTI, need for use of antibiotics. NUTRITION: Reports good appetite. PHYSICAL EXAMINATION: VITALS SIGNS: Please see below. GENERAL APPEARANCE:Patient seen, laying in bed, awake, alert, and oriented. Comfortable, in no acute distress. SKIN: Warm and dry HEENT: Normocephalic, atraumatic. Maria Antonia palpebral conjunctiva, anicteric sclerae. Lips and mucosa appear moist; on O2 supplementation NECK: Short neck, Supple. No obvious jugular venous distention. LUNGS: Clear to auscultation bilaterally. No wheezing appreciated. HEART: No chest wall abnormalities. Regular rate and rhythm with no murmurs appreciated. ABDOMEN: Abdomen is protuberant and moderately obese. Nondistended. No tenderness on palpation KAVIN: Deferred EXTREMITIES: No significant extremity edema ANCILLARIES: . LABORATORY DATA: Please see below. IMAGING STUDIES: IMPRESSION AND PLAN: Gastrointestinal bleeding Posthemorrhagic anemia By her description probably lower GI in nature. She did throw up during that time and she denies any bloody vomitus. She describes initially dark red blood then later on was describing a darker blackish stool. She does have a history of duodenal ulcer found in 2018. At that time she was taking NSAIDs for her back pain and believe. She has been maintained on Protonix since. She also had a colonoscopy at that time which was nonrevealing. There was no mention of diverticulosis during that colonoscopy. I reviewed with her possible causes for upper GI and lower GI bleeding. Given the significant drop in her hemoglobin and hematocrit, I agree with the need to localize and figure out the nature of the bleeding. I will schedule her for a colonoscopy and upper endoscopy. Consent has been obtained after full discussion of the risks and benefits of the procedure including that of aspiration, bleeding, perforation as well as adverse drug reaction. Vital Signs Vital Signs Date Time Temp Pulse Resp B/P (MAP) Pulse Ox O2 Delivery O2 Flow Rate FiO2 09/10/19 08:10 97.2 101 18 133/60 (84) 92 Nasal Cannula 2.0 09/09/19 04:45 98 I&Os I&O- Last 24 Hours up to 6 AM 09/10/19 05:59 Intake Total 1825 ml Balance 1825 ml Laboratory Data Labs 24H Laboratory Tests 2 09/09/19 12:05: Bedside Glucose (Misc Panel) 118H 09/09/19 17:47: Bedside Glucose (Misc Panel) 112 09/09/19 22:36: Bedside Glucose (Misc Panel) 122H 09/10/19 04:54: Immature Granulocyte % (Auto) 0.5, Neutrophils (%) (Auto) 60.5, Lymphocytes (%) (Auto) 32.0, Monocytes (%) (Auto) 4.9, Eosinophils (%) (Auto) 1.3, Basophils (%) (Auto) 0.8, Neutrophils # (Auto) 6.9, Lymphocytes # (Auto) 3.7, Monocytes # (Auto) 0.6, Eosinophils # (Auto) 0.2, Basophils # (Auto) 0.1, Nucleated Red Blood Cells % (auto) 0.0, Anion Gap 6L, Glomerular Filtration Rate 53.8, Calcium Level 7.8L, Magnesium Level 1.9 09/10/19 05:54: Bedside Glucose (Misc Panel) 142H 09/10/19 07:58: CBC/BMP Laboratory Tests 09/09/19 11:43 09/09/19 18:47 09/10/19 00:13 09/10/19 04:54 Microbiology Microbiology 09/09/19 Stool Occult Blood (EVARISTO) - Final, Complete Home Medications Scheduled Bupropion HCl (Bupropion HCl Sr) 150 Mg Tab, 150 MG PO BID, (Reported) Empagliflozin (Jardiance) 10 Mg Tablet, 10 MG PO DAILY, (Reported) Fexofenadine HCl (Fexofenadine HCl) 180 Mg Tablet, 180 MG PO QAM, (Reported) Levothyroxine Sodium (Levothyroxine Sodium) 200 Mcg Tablet, 200 MCG PO QAM, (Reported) Losartan/Hydrochlorothiazide (Losartan-Hctz 100-12.5 mg Tab) 1 Each Tablet, 1 TAB PO DAILY, (Reported) Metformin HCl (Metformin HCl ER) 500 Mg Tab.er.24h, 500 MG PO BID, (Reported) Montelukast Sodium (Montelukast Sodium) 10 Mg Tab, 10 MG PO QHS, (Reported) Omeprazole (Omeprazole) 20 Mg Capsule.dr, 40 MG PO DAILY, (Reported) Salmeterol/Fluticasone (Advair 500-50 Diskus) 1 Each Blst.w.dev, 1 PUFF INH BID, (Reported) Scheduled PRN Albuterol Sulfate (Albuterol Sulfate Hfa) 8.5 Gm Hfa.aer.ad, 2 PUFFS INH Q4H PRN for SHORTNESS OF BREATH, (Reported) Allergies Coded Allergies: No Known Allergies (Unverified , 09/08/19) NOEMÍ DURAN MD Sep 10, 2019 08:42
[2019-09-10] MEDS ORDERED: LIDOCAINE 2% 100MG/5ML SDV (FOR ANES.) As Ordered ONE (15:56)
[2019-09-10] MEDS ORDERED: propofoL 200 MG/20 ML VIAL As Ordered ONE (15:57)
[2019-09-10] MEDS ORDERED: fentaNYL 100 MCG/2 ML INJECTION (J3010) As Ordered ONE (16:05)
--- NOTE | 2019-09-10 16:54 | ROOR ---
Patient Name: Deanne Conley Procedure Date: 09/10/2019 4:08 PM Date of : 1955 Age: 63 Room: [facility] Gender: Female Note Status: Finalized Procedure: Upper GI endoscopy Indications: Hematochezia, Melena Providers: Demetrius Hightower MD Referring MD: Ami Gupta DO Requesting Provider: Medicines: Monitored Anesthesia Care Complications: No immediate complications. Procedure: Pre-Anesthesia Assessment: - Prior to the procedure, a History and Physical was performed, and patient medications and allergies were reviewed. The patient is competent. The risks and benefits of the procedure and the sedation options and risks were discussed with the patient. All questions were answered and informed consent was obtained. Patient identification and proposed procedure were verified by the physician, the nurse and the anesthesiologist in the endoscopy suite. Mental Status Examination: alert and oriented. Airway Examination: normal oropharyngeal airway and neck mobility. Respiratory Examination: clear to auscultation. CV Examination: normal. Prophylactic Antibiotics: The patient does not require prophylactic antibiotics. Prior Anticoagulants: The patient has taken no previous anticoagulant or antiplatelet agents. ASA Grade Assessment: III - A patient with severe systemic disease. After reviewing the risks and benefits, the patient was deemed in satisfactory condition to undergo the procedure. The anesthesia plan was to use monitored anesthesia care (MAC). Immediately prior to administration of medications, the patient was re-assessed for adequacy to receive sedatives. The heart rate, respiratory rate, oxygen saturations, blood pressure, adequacy of pulmonary ventilation, and response to care were monitored throughout the procedure. The physical status of the patient was re-assessed after the procedure. The Colonoscope was introduced through the anus and advanced to the second part of duodenum. The upper GI endoscopy was somewhat difficult. The patient tolerated the procedure well. Findings: The examined esophagus was normal. Localized mild mucosal changes characterized by nodularity were found in the gastric antrum. Biopsies were taken with a cold forceps for Helicobacter pylori testing. Estimated blood loss was minimal. Two diminutive angiodysplastic lesions one avm was bleeding , the other one not bleeding were found in the first portion of the duodenum. For hemostasis, two hemostatic clips were successfully placed (MR conditional). There was no bleeding at the end of the procedure. The esophagus was normal. The stomach was normal. The second portion of the duodenum was normal. Impression: - Normal esophagus. - Nodular mucosa in the antrum. Biopsied. 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 Clips (MR conditional) were placed. - Normal esophagus. - Normal stomach. - Normal second portion of the duodenum. Recommendation: - Ad[facility] the [facility] care. - Observe course, follow hgb/hct just once daily Demetrius Hightower MD Demetrius Hightower MD 09/10/2019 4:54:16 PM Electronically signed by Demetrius Hightower MD Number of Addenda: 0 Note Initiated On: 09/10/2019 4:08 PM Estimated Blood Loss: Estimated blood loss was minimal.
--- NOTE | 2019-09-10 16:58 | ROOR ---
Patient Name: Deanne Conley Procedure Date: 09/10/2019 4:07 PM Date of : 1955 Age: 63 Room: [facility] Gender: Female Note Status: Finalized Procedure: Colonoscopy Indications: Hematochezia, Melena Providers: Demetrius Hightower MD Referring MD: Ami Gupta DO Requesting Provider: Medicines: Monitored Anesthesia Care Complications: No immediate complications. Procedure: Pre-Anesthesia Assessment: - Prior to the procedure, a History and Physical was performed, and patient medications and allergies were reviewed. The patient is competent. The risks and benefits of the procedure and the sedation options and risks were discussed with the patient. All questions were answered and informed consent was obtained. Patient identification and proposed procedure were verified by the physician, the nurse and the anesthesiologist in the endoscopy suite. Mental Status Examination: alert and oriented. Airway Examination: normal oropharyngeal airway and neck mobility. Respiratory Examination: clear to auscultation. CV Examination: normal. Prophylactic Antibiotics: The patient does not require prophylactic antibiotics. Prior Anticoagulants: The patient has taken no previous anticoagulant or antiplatelet agents. ASA Grade Assessment: III - A patient with severe systemic disease. After reviewing the risks and benefits, the patient was deemed in satisfactory condition to undergo the procedure. The anesthesia plan was to use monitored anesthesia care (MAC). Immediately prior to administration of medications, the patient was re-assessed for adequacy to receive sedatives. The heart rate, respiratory rate, oxygen saturations, blood pressure, adequacy of pulmonary ventilation, and response to care were monitored throughout the procedure. The physical status of the patient was re-assessed after the procedure. The Colonoscope was introduced through the anus and advanced to the cecum, identified by appendiceal orifice and ileocecal valve. The colonoscopy was performed without difficulty. The patient tolerated the procedure well. The quality of the bowel preparation was good. Findings: Hemorrhoids were found on perianal exam. There is no endoscopic evidence of bleeding, diverticula, inflammation, mass or colitis in the entire colon. Two sessile polyps were found in the ascending colon. The polyps were 2 to 3 mm in size. These polyps were removed with a cold snare. Resection and retrieval were complete. Estimated blood loss was minimal. The retroflexed view of the distal rectum and anal verge was normal and showed no anal or rectal abnormalities. Impression: - Hemorrhoids found on perianal exam. - Two 2 to 3 mm polyps in the ascending colon, removed with a cold snare. Resected and retrieved. - The distal rectum and anal verge are normal on retroflexion view. Recommendation: - Ad[facility] the patient to [facility]. - Resume regular diet. Demetrius Hightower MD Demetrius Hightower MD 09/10/2019 4:58:15 PM Electronically signed by Demetrius Hightower MD Number of Addenda: 0 Note Initiated On: 09/10/2019 4:07 PM Estimated Blood Loss: Estimated blood loss was minimal.
[2019-09-10] MEDS ORDERED: SLF 3 ML SYR IV PRN (17:45)
[2019-09-10 18:18] LABS: HEMATOCRIT 28.6 % (36.0-47.0); HEMOGLOBIN 8.7 g/dl (12.0-15.5)
[2019-09-10] MEDS: MONTELUKAST 10 MG TAB PO SCH (20:17)
[2019-09-10] MEDS: SLF 3 ML SYR IV SCH (20:23)
[2019-09-11] VITALS: BP 153/87
[2019-09-11 04:00] VITALS: BP 130/63
[2019-09-11 04:44] LABS: BASO # 0.1 10^3/uL (0.0-0.2); BASO % 0.6 % (0.0-1.0); EOS # 0.2 10^3/uL (0.0-0.5); EOS % 1.5 % (0.0-3.0); HEMATOCRIT 28.8 % (36.0-47.0); HEMOGLOBIN 8.6 g/dl (12.0-15.5); LYMPH % 29.5 % (24.0-44.0); MEAN CORPUSCULAR HEMOGLOBIN 25.6 pg (27.0-33.0); MEAN CORPUSCULAR HGB CONC 29.9 g/dl (32.0-36.5); MEAN CORPUSCULAR VOLUME 85.7 fl (80.0-96.0); MONO # 0.6 10^3/uL (0.0-0.8); MONO % 5.8 % (0.0-5.0); NEUTROPHILS # 6.3 10^3/uL (1.5-8.5); PLATELET COUNT, AUTOMATED 215 10^3/uL (150-450); RED BLOOD COUNT 3.36 10^6/uL (4.00-5.40); WHITE BLOOD COUNT 10.2 10^3/uL (4.0-10.0)
[2019-09-11 05:10] LABS: CALCIUM LEVEL 7.8 MG/DL (8.8-10.2); CREATININE FOR GFR 1.08 MG/DL (0.55-1.30); GLOMERULAR FILTRATION RATE 54.4 (>45); MAGNESIUM LEVEL 2.3 MG/DL (1.8-2.4); POTASSIUM SERUM 3.4 MEQ/L (3.5-5.1)
[2019-09-11] MEDS: HumaLOG INSULIN (NovoLOG) PER UNIT SC SCH (05:57)
[2019-09-11] MEDS: LEVOTHYROXINE 100MCG TABLET (0.1MG) PO SCH (05:57)
[2019-09-11] MEDS: SLF 3 ML SYR IV SCH (06:00)
[2019-09-11] MEDS: ALBUTEROL SULFATE 2.5 MG/0.5 ML INH NEB SOLN NEB SCH (07:27)
[2019-09-11] MEDS: ADVAIR HFA 115/21MCG INHALER INH SCH (07:27)
[2019-09-11 07:43] VITALS: BP 157/67
[2019-09-11] MEDS: FEXOFENADINE 60 MG TAB PO SCH (08:40)
[2019-09-11] MEDS: buPROPion **SR TABLET** (ZYBAN) 150MG PO SCH (08:40)
[2019-09-11] MEDS ORDERED: PANTOPRAZOLE 40MG TAB (PROTONIX) PO SCH (09:00)
[2019-09-11] MEDS ORDERED: PANT40TA3 PO (09:52)
[2019-09-11] MEDS ORDERED: POTASSIUM CHLORIDE 10 MEQ SR TABLET PO ONE (10:00)
--- NOTE | 2019-09-11 12:29 | DS.PDOC ---
Discharge Summary General Date of Admission Sep 08, 2019 at 20:47 Date of Discharge 09/11/19 Discharge Summary PROCEDURES PERFORMED DURING STAY: EGD and colonoscopy. ADMITTING DIAGNOSES: 1. Acute blood loss anemia, GI bleed. DISCHARGE DIAGNOSES: 1. Acute blood loss anemia, GI bleed, AVM. COMPLICATIONS/CHIEF COMPLAINT: Acute Blood Loss Anemia,Blood Loss Anemia. HISTORY OF PRESENT ILLNESS: Patient is a 63-year-old female with a PMHx of HTN, NIDDM2, DLP, COPD, Hypothyroidism, Depression, Chronic back pain, Hx of Gastric Ulcers / GERD who presented to the emergency room with complaints of dark/red colored stool. Patient reported that this afternoon she had 2 large volume bowel movements that were described as dark/bloody. Patient came nauseous and vomited one time, she reported that her vomitus did not contain any blood, but was described as containing lasagna. Patient denies any abdominal pain. Denies any urinary discomfort. Patient denies any chest pain, shortness of breath, cough, fevers or chills or any lightheadedness or dizziness. Patient reports her appetite is fairly normal. Denies any significant changes in her weight.. HOSPITAL COURSE: Patient is a 63-year-old female with a PMHx of HTN, NIDDM2, DLP, COPD, Hypothyroidism, Depression, Chronic back pain, Hx of Gastric Ulcers / GERD who presented to the emergency room with complaints of dark/red colored stool. Patient reported that she had 2 large volume bowel movements that were described as dark/bloody. Patient came nauseous and vomited one time, she reported that her vomitus did not contain any blood, but was described as containing lasagna. Pateint was found to be anemia and admitted for GIB. GI bleed / Acute blood loss anemia Patient presented to the emergency room after experiencing 2 large dark/red colored bowel movements EGD completed 05/2017; nonbleeding duodenal ulcer Colonoscopy completed ; nonbleeding internal hemorrhoids Patient received 3 units of PRBC and later had EGD and colonoscopy done and was found to have AVMs in the upper bowel which were clipped Patient has no more GI bleed. Hemoglobin is stable at 8.6 and hematocrit 28.8 Patient tolerating oral feeding very well and she'll be discharged home and she will follow with Dr. rivero in one week . DISCHARGE MEDICATIONS: Please see below. ALLERGIES: Please see below. PHYSICAL EXAMINATION ON DISCHARGE: VITAL SIGNS: Please see below. GENERAL: Within normal limit HEENT: PERRLA. Extraocular muscles intact NECK: Supple. Negative JVD, negative lymphadenopathy CARDIOVASCULAR EXAMINATION: S1, S2, regular RESPIRATORY EXAMINATION: Clear to A&P ABDOMINAL EXAMINATION: Benign EXTREMITIES: No clubbing, cyanosis, edema SKIN: Normal NEUROLOGICAL EXAMINATION: . No focal motor sensory deficit PSYCHIATRIC EXAMINATION: Normal LABORATORY DATA: Please see below. IMAGING: Chest x-ray normal PROGNOSIS: Good ACTIVITY: As tolerated. DIET: As tolerated DISCHARGE PLAN: Discharged home DISPOSITION: Home, Self-Care. DISCHARGE INSTRUCTIONS: 1. Follow with an outpatient. ITEMS TO FOLLOWUP ON ON OUTPATIENT: 1. Follow-up with Dr. rivero an outpatient. DISCHARGE CONDITION: Stable. TIME SPENT ON DISCHARGE: 40 minutes. Vital Signs/I&Os Vital Signs Date Time Temp Pulse Resp B/P (MAP) Pulse Ox O2 Delivery O2 Flow Rate FiO2 09/11/19 07:43 97.4 95 18 157/67 (97) 92 Nasal Cannula 2.0 09/09/19 04:45 98 I&O- Last 24 Hours up to 6 AM 09/11/19 06:00 Intake Total 400 ml Output Total 0 ml Balance 400 ml Laboratory Data Labs 24H Laboratory Tests 2 09/10/19 12:41: Bedside Glucose (Misc Panel) 151H 09/10/19 17:46: Bedside Glucose (Misc Panel) 164H 09/10/19 23:25: Bedside Glucose (Misc Panel) 126H 09/11/19 04:23: Immature Granulocyte % (Auto) 0.6, Neutrophils (%) (Auto) 62.0, Lymphocytes (%) (Auto) 29.5, Monocytes (%) (Auto) 5.8H, Eosinophils (%) (Auto) 1.5, Basophils (%) (Auto) 0.6, Neutrophils # (Auto) 6.3, Lymphocytes # (Auto) 3.0, Monocytes # (Auto) 0.6, Eosinophils # (Auto) 0.2, Basophils # (Auto) 0.1, Nucleated Red Blood Cells % (auto) 0.0, Anion Gap 4L, Glomerular Filtration Rate 54.4, Calcium Level 7.8L, Magnesium Level 2.3 09/11/19 05:54: Bedside Glucose (Misc Panel) 126H CBC/BMP Laboratory Tests 09/10/19 13:51 09/10/19 18:04 09/11/19 04:23 FSBS Laboratory Tests Test 09/10/19 12:41 09/10/19 17:46 09/10/19 23:25 09/11/19 05:54 Range/Units Bedside Glucose (Misc Panel) 151 164 126 126 80-115 MG/DL Microbiology Microbiology 09/09/19 Stool Occult Blood (EVARISTO) - Final, Complete Discharge Medications Scheduled Bupropion HCl (Bupropion HCl Sr) 150 Mg Tab, 150 MG PO BID, (Reported) Empagliflozin (Jardiance) 10 Mg Tablet, 10 MG PO DAILY, (Reported) Fexofenadine HCl (Fexofenadine HCl) 180 Mg Tablet, 180 MG PO QAM, (Reported) Levothyroxine Sodium (Levothyroxine Sodium) 200 Mcg Tablet, 200 MCG PO QAM, (Reported) Losartan/Hydrochlorothiazide (Losartan-Hctz 100-12.5 mg Tab) 1 Each Tablet, 1 TAB PO DAILY, (Reported) Metformin HCl (Metformin HCl ER) 500 Mg Tab.er.24h, 500 MG PO BID, (Reported) Montelukast Sodium (Montelukast Sodium) 10 Mg Tab, 10 MG PO QHS, (Reported) Omeprazole (Omeprazole) 20 Mg Capsule.dr, 40 MG PO DAILY, (Reported) Pantoprazole Sodium (Pantoprazole Sodium) 40 Mg Tablet.dr, 40 MG PO DAILY Salmeterol/Fluticasone (Advair 500-50 Diskus) 1 Each Blst.w.dev, 1 PUFF INH BID, (Reported) Scheduled PRN Albuterol Sulfate (Albuterol Sulfate Hfa) 8.5 Gm Hfa.aer.ad, 2 PUFFS INH Q4H PRN for SHORTNESS OF BREATH, (Reported) Allergies Coded Allergies: No Known Allergies (Unverified , 09/08/19) HECTOR ALVARES MD Sep 11, 2019 12:29
== END 2019-09-11 11:41 | disposition home or self-care (01) | DRG 394 ==
LOC: M ED 19:26 → EEVIPCON 20:47 → M ED INP 20:47 → ENRESERV 21:08 → M PCU 21:55
PROVIDERS: ADMIT Internal Medicine; ATTEND Internal Medicine
PROC: 30233N1 Transfusion of Nonautologous Red Blood Cells into Peripheral Vein, Percutaneous Approach (ICD-10-PCS; principal; 2019-09-08)
PROC: 0DBK8ZX Excision of Ascending Colon, Via Natural or Artificial Opening Endoscopic, Diagnostic (ICD-10-PCS; 2019-09-10)
PROC: 0W3P8ZZ Control Bleeding in Gastrointestinal Tract, Via Natural or Artificial Opening Endoscopic (ICD-10-PCS; 2019-09-10)
DX: Q43.9 Congenital malformation of intestine, unspecified (principal); J96.11 Chronic respiratory failure with hypoxia; D62 Acute posthemorrhagic anemia; I10 Essential (primary) hypertension; E11.9 Type 2 diabetes mellitus without complications; J44.9 Chronic obstructive pulmonary disease, unspecified; E03.9 Hypothyroidism, unspecified; F32.9 Major depressive disorder, single episode, unspecified; M54.5 Low back pain; K21.9 Gastro-esophageal reflux disease without esophagitis; K64.8 Other hemorrhoids; Z79.899 Other long term (current) drug therapy; D12.2 Benign neoplasm of ascending colon

== ENCOUNTER 2020-08-10 10:46 | Inpatient (IN) | payer MEDICARE, OTHER ==
[2020-08-10] VITALS (11 sets, daily range): BP systolic 101–132; BP diastolic 44–74; O2SAT 93
[~2020-08-10] VITALS: Ht 157.5 cm; Wt 75.0 kg
[~2020-08-10 10:46] MED LIST changes: -HYDR12.55 PO; -LOSA100T50 PO; -OMEP-221 PO
[2020-08-10] MEDS ORDERED: PANTOPRAZOLE 40MG VIAL (C9113 PER 1) IV ONE (11:30)
[2020-08-10] MEDS ORDERED: IPRATROPIUM 0.5MG/ALBUTEROL 2.5MG INH SOL UD 3ML (DUONEB) NEB ONE (11:30)
--- NOTE | 2020-08-10 11:31 | REP ---
INDICATION: CHEST PAIN. COMPARISON: 09/09/2019 the latest prior TECHNIQUE: Portable FINDINGS: The technique utilized in obtaining the radiograph has magnified the cardiac silhouette and accentuated the interstitial markings. There is mild cardiomegaly accentuated by technique. There are mild bibasilar fibrotic changes status quo. No acute patchy parenchymal opacities or pleural effusions have developed. The CP angles have not been included on the radiograph in total. IMPRESSION: No significant change compared to the prior exam other than technique. Consider PA and lateral views of the chest. <Electronically signed by Benito Cruz > 08/10/20 1120
[2020-08-10 12:11] LABS: MEAN CORPUSCULAR HEMOGLOBIN 20.4 pg (27.0-33.0); MEAN CORPUSCULAR VOLUME 81.4 fl (80.0-96.0); PLATELET COUNT, AUTOMATED 287 10^3/uL (150-450); RED BLOOD COUNT 2.26 10^6/uL (4.00-5.40); WHITE BLOOD COUNT 9.2 10^3/uL (4.0-10.0)
[2020-08-10 12:15] LABS: HEMATOCRIT 18.4 % (36.0-47.0); HEMOGLOBIN 4.6 g/dl (12.0-15.5)
[2020-08-10 12:21] LABS: RSV AMPLIFICATION NEGATIVE (NEGATIVE)
[2020-08-10 12:22] LABS: INR 1.05; PROTHROMBIN TIME 13.9 SECONDS (12.5-14.3)
[2020-08-10 12:23] LABS: PARTIAL THROMBOPLASTIN TIME 26.4 SECONDS (24.2-38.5)
[2020-08-10 12:28] LABS: ANISOCYTOSIS 2+; ATYPICAL LYMPH 1 % (0-5); BASOPHILS 2 % (0-1); EOSINOPHILS 2 % (0-3); LYMPHOCYTES 16 % (16-44); METAMYELOCYTES 1 % (0-0); MONOCYTES 4 % (0-5); NEUTROPHILS 71 % (28-66); PLATELET ESTIMATE NORMAL (NORMAL)
[2020-08-10 12:29] LABS: HYPOCHROMASIA 2+; STOMATOCYTES 1+
[2020-08-10 12:50] LABS: ALBUMIN 3.8 GM/DL (3.2-5.2); ALT/SGPT 30 U/L (12-78); BILIRUBIN,DIRECT 0.3 MG/DL (0.0-0.2); BLOOD UREA NITROGEN 15 MG/DL (7-18); CALCIUM LEVEL 9.5 MG/DL (8.8-10.2); CARBON DIOXIDE LEVEL 31 MEQ/L (21-32); CHLORIDE LEVEL 101 MEQ/L (98-107); CK-MB VALUE MASS 1.9 NG/ML (<3.6); CPK CREATINE PHOSPHOKINASE 84 U/L (26-192); CREATININE FOR GFR 1.28 MG/DL (0.55-1.30); FREE T4 1.31 NG/DL (0.76-1.46); GLOMERULAR FILTRATION RATE 44.6 (>45); GLUCOSE, FASTING 123 MG/DL (70-100); LIPASE 75 U/L (73-393); MB/CK RELATIVE INDEX 2.26 (< OR =4); POTASSIUM SERUM 4.6 MEQ/L (3.5-5.1); SODIUM LEVEL 137 MEQ/L (136-145); TOTAL PROTEIN 7.4 GM/DL (6.4-8.2); TROPONIN I < 0.02 NG/ML (< 0.10)
[2020-08-10] MEDS ORDERED: LOSA100T50 PO (13:10)
[2020-08-10] MEDS ORDERED: HYDR12.55 PO (13:10)
[2020-08-10] MEDS ORDERED: OMEP-221 PO (13:10)
--- NOTE | 2020-08-10 14:39 | HPEPDOC ---
General Date of Admission 08/10/20 Date of Service: August 10, 2020 Chief Complaint The patient is a 64-year-old female admitted with a reason for visit of Abnormal Labs. 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 At the PMDs office she was tested for requirement of oxygen at rest and at ambulation and it did not show any hypoxia, so she did not qualify for home oxygen. So the primary care stopped her oxygen prescription. Labs were ordered as she hasn't had any labs for one year. It showed a hemoglobin of 4.6, so the patient was sent to the emergency room. On my interview, patient complained of feeling weak, tired and fatigued for the past 3 months. She denied any overt bleeding. She does report that she has lost 16 pounds from last year with some dietary adjustments. She reports that she is having normal bowel movements and she had a bowel movement this morning which was brown in color and solid does admit that she hasn't taken her iron pills because her pharmacy apparently was getting out of a 15 day suppl y and she before used to get 3 month supply and she doesn't want to go to the pharmacy every 15 days. Guaiac in the ED was negative. She was admitted for symptomatic anemia and likely GI bleed Home Medications Scheduled Bupropion HCl (Bupropion HCl Sr) 150 Mg Tab, 150 MG PO BID, (Reported) Empagliflozin (Jardiance) 10 Mg Tablet, 10 MG PO DAILY, (Reported) Fexofenadine HCl (Fexofenadine HCl) 180 Mg Tablet, 180 MG PO DAILY, (Reported) Hydrochlorothiazide (Hydrochlorothiazide) 12.5 Mg Tablet, 12.5 MG PO DAILY, (Reported) Levothyroxine Sodium (Levothyroxine Sodium) 200 Mcg Tablet, 200 MCG PO QAM, (Reported) Losartan Potassium (Losartan Potassium) 100 Mg Tablet, 100 MG PO DAILY, (R eported) Metformin HCl (Metformin HCl ER) 500 Mg Tab.er.24h, 500 MG PO BID, (Reported) Montelukast Sodium (Montelukast Sodium) 10 Mg Tab, 10 MG PO QHS, (Reported) Omeprazole (Omeprazole) 40 Mg Capsule.dr, 40 MG PO QHS, (Reported) Salmeterol/Fluticasone (Advair 500-50 Diskus) 1 Each Blst.w.dev, 1 PUFF INH BID, (Reported) Scheduled PRN Albuterol Sulfate (Albuterol Sulfate Hfa) 8.5 Gm Hfa.aer.ad, 2 PUFFS INH Q4H PRN for SHORTNESS OF BREATH, (Reported) Allergies Coded Allergies: No Known Allergies (Unverified , 09/08/19) Past Medical History Medical History hypertension, diabetes, COPD, depression, Allergies, history of chronic anemia, 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 Dyspnea, Lt Headedness Gastrointestinal: Denies: Nausea, Vomiting, Abdominal Pain, Diarrhea Genitourinary: Denies: Dysuria, Frequency, Incontinence, Retention Hematologic: Denies: Bruising, Bleeding Excessively Physical Examination General Exam: Positive: Alert, Cooperative, No Acute Distress Eye Exam: Positive: PERRLA, Conjunctiva & lids normal, EOMI; Negative: Sclera icteric ENT Exam: Positive: Atraumatic, Mucous membr. moist/pink, Pharynx Normal Neck Exam: Positive: Supple; Negative: JVD, thyromegaly Chest Exam: Positive: Clear to auscultation, Normal air movement Heart Exam: Positive: Tachycardic, Regular Rhythm, Normal S1, Normal S2; Negative: Murmurs, Rubs Abdomen Exam: Positive: Normal bowel sounds, Soft; Negative: Tenderness, Hepatospenomegaly Extremity Exam: Negative: Clubbing, Cyanosis, Edema Skin Exam: Positive: Nl turgor and temperature; Negative: Breakdown, Lesion Neuro Exam: Positive: Normal Speech, Strength at 5/5 X4 ext, Normal Tone Psych Exam: Positive: Memory Intact, Oriented x 3 Vital Signs Vital Signs Date Time Temp Pulse Resp B/P (MAP) Pulse Ox O2 Delivery O2 Flow Rate FiO2 08/10/20 10:54 97.8 109 20 106/47 (66) 90 Room Air Laboratory Data Labs 24H Laboratory Tests 2 08/10/20 11:34: Coronavirus (COVID-19)(PCR) NEGATIVE, Influenza Type A (RT-PCR) NEGATIVE, Influenza Type B (RT-PCR) NEGATIVE, Respiratory Syncytial Virus (PCR) NEGATIVE 08/10/20 11:35: Neutrophils (%) (Auto) , Nucleated Red Blood Cells % (auto) 0.2H, Neutrophils 71H, Band Neutrophils 3, Lymphocytes (Manual) 16, Monocytes (Manual) 4, Eosinophils (Manual) 2, Basophils (Manual) 2H, Metamyelocytes 1H, Atypical Lymphocytes 1, Hypochromasia 2+, Anisocytosis 2+, Stomatocytes 1+, Platelet Estimate NORMAL, Prothrombin Time 13.9, Prothromb Time International Ratio 1.05, Activated Partial Thromboplast Time 26.4, Anion Gap 5L, Glomerular Filtration Rate 44.6L, Calcium Level 9.5, Total Bilirubin 1.0, Direct Bilirubin 0.3H, Aspartate Amino Transf (AST/SGOT) 30, Alanine Aminotransferase (ALT/SGPT) 30, Alkaline Phosphatase 154H, Total Creatine Kinase 84, Creatine Kinase MB 1.9, Creatine Kinase MB Relative Index 2.26, Troponin I < 0.02, Total Protein 7.4, Albumin 3.8, Albumin/Globulin Ratio 1.1L, Lipase 75, Thyroid Stimulating Hormone (TSH) 23.200H, Free Thyroxine 1.31 CBC/BMP Laboratory Tests 08/10/20 11:35 Assessment/Plan 64-year-old female with past medical history of hypertension, diabetes, COPD on home oxygen, history of chronic anemia, 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 At the PMDs office she was tested for requirement of oxygen at rest and at ambulation and it did not show any hypoxia, so she did not qualify for home oxygen. So the primary care stopped her oxygen prescription. Labs were ordered as she hasn't had any labs for one year. It showed a hemoglobin of 4.6, so the patient was sent to the emergency room. On my int erview, patient complained of feeling weak, tired and fatigued for the past 3 months. She denied any overt bleeding. She reports that she is having normal bowel movements and she had a bowel movement this morning which was brown in color and solid does admit that she hasn't taken her iron pills because her pharmacy apparently was getting out of a 15 day supply and she before used to get 3 month supply and she doesn't want to go to the pharmacy every 15 days. Guaiac in the ED was negative. She was admitted for symptomatic anemia and likely GI bleed GI bleed / Acute blood loss anemia Colonoscopy in 2019 polyps, hemorrhoids EGD on 2019: Duodenal AVMs, gastric nodularity EGD completed 05/2017; nonbleeding duodenal ulcer 2 units prbc ordered. Surgery consulted. . She will, at the latest made upper GI endoscopy to look for AVMs or peptic ulcer disease Clear liquids HTN Hold losartan as BP low. NIDDM2 lispro Ac and HS. DLP not on meds COPD/allergies taken off oxygen today as she didn't qualify for home oxygen at the PMDs office No evidence of exacerbation c/w inhaled therapy as ordered advair, albuterel nebs, singulair Hypothyroidism levothyroxine TSH elevated, but will have to recheck after her hemoglobin is better. Will not change any doses of Synthroid at present Depression bupropion DVT prophylaxis TEDs/Sequentials Plan / VTE VTE Prophylaxis Ordered?: Yes GINNY FAITH MD August 10, 2020 13:43
[2020-08-10 14:54] LABS: FERRITIN 3 NG/ML (8-252); IRON (FE) 48 UG/DL (50-170); PERCENT SATURATION 7.9 % (13.2-45.0); TOTAL IRON BINDING CAPACITY 610 UG/DL (250-450)
[2020-08-10 15:00] LABS: VITAMIN B12 LEVEL 332 PG/ML
[2020-08-10] MEDS: PANTOPRAZOLE 40MG VIAL (C9113 PER 1) IV SCH (15:00)
[2020-08-10 15:01] LABS: FOLATE 9.5 NG/ML
[2020-08-10] MEDS ORDERED: FUROSEMIDE 40MG/4ML VIAL (J1940) IV ONE (18:00)
[2020-08-10] MEDS: ADVAIR HFA 230/21MCG INHALER INH SCH (19:35)
[2020-08-10] MEDS: SUCRALFATE SUSP 1GM/10ML UD PO SCH ×2 (19:51→20:48)
--- NOTE | 2020-08-10 20:10 | ECGEPIP ---
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
[2020-08-10] MEDS: buPROPion **SR TABLET** (ZYBAN) 150MG PO SCH (20:49)
[2020-08-10] MEDS: MONTELUKAST 10 MG TAB PO SCH (20:49)
[2020-08-10] MEDS ORDERED: COMBIVENT RESPIMAT 100-20MCG INHALER 4GM INH ONE (21:00)
[2020-08-11] VITALS (12 sets, daily range): BP systolic 105–118; BP diastolic 56–82
[2020-08-11 00:40] LABS: HEMATOCRIT 25.9 % (36.0-47.0)
[2020-08-11 00:44] LABS: HEMOGLOBIN 7.5 g/dl (12.0-15.5)
[2020-08-11] MEDS ORDERED: GLUCOSE 4GM CHEW TABLET PO PRN (00:45)
[2020-08-11] MEDS ORDERED: GLUCAGON INJ 1MG VIAL SC PRN (00:45)
[2020-08-11] MEDS ORDERED: DEXTROSE 50% 50 ML SYRINGE IV PRN (00:45)
[2020-08-11] MEDS: PANTOPRAZOLE 40MG VIAL (C9113 PER 1) IV SCH ×2 (02:32→14:14)
[2020-08-11] MEDS: LEVOTHYROXINE 100MCG TABLET (0.1MG) PO SCH (05:35)
[2020-08-11 06:10] LABS: BASO # 0.1 10^3/uL (0.0-0.2); BASO % 0.7 % (0.0-1.0); EOS # 0.1 10^3/uL (0.0-0.5); EOS % 1.2 % (0.0-3.0); HEMATOCRIT 25.1 % (36.0-47.0); HEMOGLOBIN 7.2 g/dl (12.0-15.5); LYMPH # 2.5 10^3/uL (1.5-5.0); LYMPH % 28.6 % (24.0-44.0); MEAN CORPUSCULAR HEMOGLOBIN 23.8 pg (27.0-33.0); MEAN CORPUSCULAR HGB CONC 28.7 g/dl (32.0-36.5); MEAN CORPUSCULAR VOLUME 83.1 fl (80.0-96.0); MONO # 0.5 10^3/uL (0.0-0.8); MONO % 5.6 % (2.0-8.0); NEUTROPHILS # 5.6 10^3/uL (1.5-8.5); NEUTROPHILS % 63.2 % (36.0-66.0); PLATELET COUNT, AUTOMATED 268 10^3/uL (150-450); RED BLOOD COUNT 3.02 10^6/uL (4.00-5.40); WHITE BLOOD COUNT 8.9 10^3/uL (4.0-10.0)
[2020-08-11 06:27] LABS: CALCIUM LEVEL 9.5 MG/DL (8.8-10.2); CREATININE FOR GFR 1.15 MG/DL (0.55-1.30); GLOMERULAR FILTRATION RATE 50.4 (>45)
[2020-08-11] MEDS: ADVAIR HFA 230/21MCG INHALER INH SCH (07:19)
[2020-08-11] MEDS ORDERED: HumaLOG INSULIN (NovoLOG) PER UNIT SC SCH ×3 (07:30→21:00)
[2020-08-11] MEDS: SUCRALFATE SUSP 1GM/10ML UD PO SCH ×4 (07:30→20:12)
--- NOTE | 2020-08-11 08:50 | CR ---
CONSULTATION DATE: 08/10/2020 REASON FOR CONSULTATION: Anemia and history of GI bleed. BRIEF HISTORY OF PRESENT ILLNESS: The patient is a 64-year-old female who presents to her primary care provider with significant anemia. She states that she has not had any melanotic stools, no bright red blood per rectum, no evidence of shortness of breath, however ran out of her iron pills many days ago and has not noticed any dark stools, either. In any case, she has had a history of GI bleeding secondary to a duodenal AVM in the past as well as history of GI bleeding from a peptic ulcer in the past. I am asked to see her for a possible upper endoscopy to see if we have any ongoing upper GI source. PAST MEDICAL HISTORY: Significant for a history of chronic anemia, history of peptic ulcer disease, history of GI bleeding, history of diabetes mellitus, history of hypertension, history of COPD, history of depression. MEDICATIONS: 1. Wellbutrin. 2. Jardiance. 3. Fexofenadine. 4. Hydrochlorothiazide. 5. Synthroid. 6. Losartan. 7. Metformin. 8. Montelukast sodium. 9. Prilosec. 10. Advair. PHYSICAL EXAMINATION: General: A 64-year-old female who looks older than stated age. HEENT: Unremarkable. Neck: Supple without adenopathy. Lungs: Clear to auscultation anteriorly. Heart: Regular. Abdomen: Soft, nontender, nondistended. IMPRESSION AND PLAN: The patient has anemia of undetermined etiology. Several etiologies are possible, one of which is an ongoing gastritis/gastroduodenitis. However, she has had this in the past and has had pain with this. Thus, I feel this is less likely although possible. Another option obviously is AVMs. However, the likelihood that they are in the duodenum alone is less likely although proceeding with an upper endoscopy is a reasonable first next step and then thereafter when she is discharged, she can be evaluated with a capsule endoscopy. I would recommend referral to GI for this and then therapeutic treatment of the possible small bowel disease as appropriate as well. In any case at this point, we will plan on upper endoscopy for her tomorrow. She understands the risks as well as benefits and would like to proceed with this as scheduled.
--- NOTE | 2020-08-11 08:54 | IPN ---
PROGRESS NOTE DATE: 08/11/2020 SUBJECTIVE: The patient denies any bright-red blood per rectum, melena or black tarry stool, hematemesis or coffee-ground emesis. Denies any abdominal pain or reflux. This morning the patient says she has been "through this before. I had some veins in my stomach that bled." Patient had no fever, chills, cough or shortness of breath this morning. Glucose was 122 on fingerstick at 6:44. Holding her Levemir insulin. OBJECTIVE: VITAL SIGNS: Temperature 98.2, pulse 91, respiratory rate 16, blood pressure 105/60, 93% on 2 liters nasal cannula. GENERAL: Patient is pale. No icterus. Dry mucous membranes. LUNGS: Clear to auscultation. No wheezing or rales. HEART: S1 and S2, sinus rhythm. ABDOMEN: Soft, nontender and nondistended. EXTREMITIES: No cyanosis or clubbing. LABORATORY DATA: Hemoglobin is 7.2, hematocrit is 25. ASSESSMENT AND PLAN: This is a 64-year-old female admitted on 08/10/2020 with a history of arterial venous malformation, peptic ulcer disease, chronic anemia, COPD, taken off home oxygen by primary care physician on 08/10/2020, diabetes, hypertension, GI bleed, iron deficiency, who presented to the Emergency Room due to abnormal blood work, hemoglobin of 4.6 with complaints of weakness, tired and fatigued for the past three months without overt bleeding. Patient has been having brown colored stool, does not admit to taking iron pills, guaiac in the ER was negative. Admitted for symptomatic anemia secondary to GI bleed. IMPRESSION: 1. Symptomatic anemia due to acute blood loss anemia from GI bleed with a history of polyps and hemorrhoids on colonoscopy in 2019, EGD in 2019, duodenal arterial venous malformation, gastric nodularity, EGD completed in 2017 showed non-bleeding duodenal ulcer. Patient is status post two units of RBCs with a hemoglobin increasing from 4.6 to 7.2 this morning. Will give one more unit of blood to get the hemoglobin above 8. She is currently on Protonix 40 IV q. 12 hourly and Carafate 1 gram a.c. h.s. 2. COPD, currently compensated on as needed DuoNeb, off oxygen, saturating well on room air. 3. Hypertension, currently controlled. 4. Type 2 diabetes, holding off on long-acting insulin and sliding scale and hypoglycemic protocol while NPO. MTDD
[2020-08-11] MEDS ORDERED: IPRATROPIUM 0.5MG/ALBUTEROL 2.5MG INH SOL UD 3ML (DUONEB) NEB PRN (09:00)
[2020-08-11] MEDS: buPROPion **SR TABLET** (ZYBAN) 150MG PO SCH ×2 (09:00→14:14)
[2020-08-11 12:19] LABS: HEMATOCRIT 25.6 % (36.0-47.0); HEMOGLOBIN 7.4 g/dl (12.0-15.5)
[2020-08-11] MEDS ORDERED: LIDOCAINE 2% 100MG/5ML SDV (FOR ANES.) As Ordered ONE (12:39)
[2020-08-11] MEDS ORDERED: propofoL 200 MG/20 ML VIAL As Ordered ONE (12:39)
[2020-08-11] MEDS ORDERED: ONDANSETRON 4MG/2ML VIAL IV PRN (13:35)
[2020-08-11] MEDS ORDERED: fentaNYL 100 MCG/2 ML INJECTION (J3010) IV PRN (13:35)
--- NOTE | 2020-08-11 13:45 | RO ---
OPERATIVE NOTE DATE OF OPERATION: 08/11/2020 PREOPERATIVE DIAGNOSIS: Anemia, question of upper GI bleeding. POSTOPERATIVE DIAGNOSIS: Normal upper endoscopy. PROCEDURE: EGD. SURGEON: Urban Park Jr, MD BLINDSTITCH LINING FELLER: ANESTHESIA: IV sedation. FINDINGS: No evidence of reflux esophagitis. No evidence of gastritis. No evidence of duodenitis or duodenal ulcer. No evidence of AV malformation in the proximal duodenum. DESCRIPTION OF PROCEDURE: The patient was brought to the operating room, was placed in the left lateral decubitus position. The patient was given IV sedation. Gastroscope was inserted into the posterior oropharynx down to the esophagus without difficulty. The esophagus looked normal without any inflammation, no evidence of esophagitis, no evidence of reflux esophagitis. The scope was inserted into the stomach and the stomach was insufflated at this time revealing no evidence of gastritis, no prepyloric ulcers, no evidence of inflammation or blood within the stomach. The scope was advanced through the pylorus revealing normal appearing mucosa in the pylorus without evidence of bleeding in the postbulbar duodenum, into the second portion of the duodenum all appeared normal without evidence of abnormality. There was bile from the ampulla coming out and no evidence of blood from this either. Scope was brought back into the stomach, retroflexed and revealed normal GE junction, no evidence of inflammation, ulceration or old blood. The scope was gradually removed at this time viewing the esophagus again on removal revealing no other significant abnormalities. The patient was awakened from her sedation and brought to the recovery room awake, alert and hemodynamically stable.
[2020-08-11] MEDS ORDERED: ACETAMINOPHEN 500 MG TAB PO ONE (17:35)
[2020-08-11] MEDS ORDERED: ACETAMINOPHEN 500 MG TAB PO PRN (17:35)
[2020-08-11] MEDS: MONTELUKAST 10 MG TAB PO SCH (20:12)
[2020-08-11 21:08] LABS: HEMATOCRIT 28.2 % (36.0-47.0); HEMOGLOBIN 8.3 g/dl (12.0-15.5)
[2020-08-12] VITALS (12 sets, daily range): BP systolic 113–131; BP diastolic 63–82
[2020-08-12 00:31] LABS: HEMATOCRIT 27.8 % (36.0-47.0); HEMOGLOBIN 8.1 g/dl (12.0-15.5)
[2020-08-12] MEDS: PANTOPRAZOLE 40MG VIAL (C9113 PER 1) IV SCH (03:01)
[2020-08-12 05:44] LABS: BASO # 0.1 10^3/uL (0.0-0.2); BASO % 0.6 % (0.0-1.0); EOS # 0.1 10^3/uL (0.0-0.5); EOS % 1.4 % (0.0-3.0); LYMPH # 2.2 10^3/uL (1.5-5.0); LYMPH % 28.1 % (24.0-44.0); MEAN CORPUSCULAR HGB CONC 28.6 g/dl (32.0-36.5); MEAN CORPUSCULAR VOLUME 83.8 fl (80.0-96.0); MONO # 0.5 10^3/uL (0.0-0.8); MONO % 5.9 % (2.0-8.0); NEUTROPHILS % 63.5 % (36.0-66.0); PLATELET COUNT, AUTOMATED 226 10^3/uL (150-450); RED BLOOD COUNT 3.34 10^6/uL (4.00-5.40); WHITE BLOOD COUNT 7.8 10^3/uL (4.0-10.0)
[2020-08-12] MEDS: LEVOTHYROXINE 100MCG TABLET (0.1MG) PO SCH (05:46)
[2020-08-12 06:06] LABS: CALCIUM LEVEL 9.3 MG/DL (8.8-10.2); CREATININE FOR GFR 1.07 MG/DL (0.55-1.30); GLOMERULAR FILTRATION RATE 54.8 (>45); POTASSIUM SERUM 3.8 MEQ/L (3.5-5.1)
[2020-08-12] MEDS: ADVAIR HFA 230/21MCG INHALER INH SCH (07:25)
[2020-08-12] MEDS: HumaLOG INSULIN (NovoLOG) PER UNIT SC SCH ×3 (07:30→16:30)
--- NOTE | 2020-08-12 07:45 | DSES ---
DISCHARGE SUMMARY DATE OF ADMISSION: 08/10/2020 DATE OF DISCHARGE: 08/12/2020 COMMUNITY DEVELOPMENT AIDE: Urban Park M.D. PROCEDURE: EGD on 08/11/2020 PRIMARY DISCHARGE DIAGNOSIS: 1. Symptomatic anemia. 2. Acute blood loss anemia. 3. History of peptic ulcer disease. 4. History of arteriovenous malformation. 5. Iron deficiency. 6. COPD. 7. Hypertension. 8. Diabetes. DISCHARGE MEDICATIONS: 1. Albuterol two puffs q. 4 hours as needed. 2. Bupropion 150 b.i.d. 3. Jardiance 10 daily. 4. Fexofenadine 180 daily. 5. Hydrochlorothiazide 12.5 daily. 6. Synthroid 200 mcg q.a.m. 7. Losartan 100 daily. 8. Metformin 500 b.i.d. 9. Montelukast 10 q.h.s. 10.Prilosec 40 q.h.s. 11.Advair 500-50 Discus one puff inhaled b.i.d. DISCHARGE INSTRUCTIONS: Patient is referred by primary care physician to sexual assault nurse, Dr. Land or Dr. Rodríguez for capsule endoscopy. EGD was negative per Dr. Park's EGD and prior colonoscopies were also negative. Patient's PCP to also recheck CBC to rule out recurrent symptomatic anemia at hospital discharge. PCP follow-up within five days. Dr. Park, follow-up within one week, appointment with Dr. Rodríguez or Dr. Land for capsule endoscopy. HOSPITAL COURSE: This is a 64-year-old female with a history of AVM, peptic ulcer disease, iron deficiency anemia, COPD, taken off home oxygen by primary care physician, diabetes, hypertension, prior history of GI who presented to the ER with abnormal blood work with a hemoglobin of 4.6, with complaints of weakness and fatigue for the past three months without overt GI bleed. Patient had been having brown colored stools but did not admit to taking iron pills and was guaiac negative in the Emergency Room. She was admitted for symptomatic anemia with probable GI as the cause. The patient was transfused a total of 5 units of blood, was placed on Protonix 40 IV q. 12 hourly, underwent an EGD by Dr. Park which was negative for peptic ulcer disease as well as AVM. Recommendations are to do capsule endoscopy as an outpatient by sexual assault nurse. Patient had iron deficiency anemia despite TSH of 23, free T4 was 1.3. Her Synthroid was continued at 200 mcg daily with repeat thyroid function tests as an outpatient and adjustment of her Synthroid. PHYSICAL EXAMINATION: On discharge, temperature 98.1, pulse 79, respiratory rate 17, blood pressure 119/63, 95% on 2 liters nasal cannula. Generally, awake, alert and oriented x3. No pallor, icterus or jaundice. HEENT: No JVD or thyromegaly. Poor dentition, missing teeth. Clear to auscultation. No wheezing, rales or rhonchi. Heart is S1 and S2, sinus rhythm. Abdomen is obese, soft, nontender and nondistended. Extremities: No cyanosis or clubbing. DISCHARGE LABORATORY DATA: White count is 7.8, hemoglobin is 8, hematocrit is 28, platelet count is 226,000. Repeat hemoglobin is pending. Sodium 138, potassium is 3.8, chloride 103, bicarbonate 32, BUN is 15, creatinine is 1.07. Glucose is 126. Chest x-ray on 08/10: No change from prior exam. Time spent on discharge: 30 minutes MTDD
[2020-08-12] MEDS: SUCRALFATE SUSP 1GM/10ML UD PO SCH ×3 (09:16→16:34)
[2020-08-12] MEDS: buPROPion **SR TABLET** (ZYBAN) 150MG PO SCH ×2 (09:16→13:31)
[2020-08-12] MEDS ORDERED: FUROSEMIDE 40MG/4ML VIAL (J1940) IV ONE (14:30)
[2020-08-12] MEDS ORDERED: metOLazone 5 MG TAB PO ONE (14:35)
[2020-08-12] MEDS ORDERED: LEVALBUTEROL 1.25 MG/0.5 ML CONCENTRATE NEB NEB ONE (14:35)
--- NOTE | 2020-08-12 14:54 | REP ---
INDICATION: sob s/p 4urbc transfusion r/o fluid overload. COMPARISON: 08/10/2020. TECHNIQUE: Single portable AP view of the chest was performed. FINDINGS: There are mild chronic bibasilar fibro atelectatic changes. No definite superimposed acute infiltrate is seen. The heart is normal in size. The mediastinal silhouette is unchanged. There is calcification of the thoracic aorta. IMPRESSION: No acute pulmonary disease.Stable chronic findings. <Electronically signed by Carmelo Bustamante > 08/12/20 [id number]
[2020-08-12] MEDS ORDERED: PANTOPRAZOLE 40MG TAB (PROTONIX) PO SCH (15:00)
[2020-08-12] MEDS ORDERED: methylPREDNISolone 125MG 2ML VIAL IV ONE (15:55)
[2020-08-12] MEDS: LEVALBUTEROL 1.25 MG/0.5 ML CONCENTRATE NEB INH SCH ×2 (16:06→17:00)
[2020-08-12] MEDS ORDERED: PRED10TA2 PO (16:19)
[2020-08-12 17:35] LABS: HEMATOCRIT 35.9 % (36.0-47.0)
[2020-08-12 17:39] LABS: HEMOGLOBIN 10.7 g/dl (12.0-15.5)
== END 2020-08-12 18:19 | disposition home or self-care (01) | DRG 812 ==
LOC: M ED 10:46 → M ED INP 14:10 → M MSPAV 17:44
PROVIDERS: ADMIT Internal Medicine Nephrology; ATTEND General Practice
PROC: 30233N1 Transfusion of Nonautologous Red Blood Cells into Peripheral Vein, Percutaneous Approach (ICD-10-PCS; principal; 2020-08-10)
PROC: 0DJ08ZZ Inspection of Upper Intestinal Tract, Via Natural or Artificial Opening Endoscopic (ICD-10-PCS; 2020-08-11)
DX: D62 Acute posthemorrhagic anemia (principal); J44.9 Chronic obstructive pulmonary disease, unspecified; I10 Essential (primary) hypertension; E11.9 Type 2 diabetes mellitus without complications; Z79.899 Other long term (current) drug therapy; F32.9 Major depressive disorder, single episode, unspecified; E03.9 Hypothyroidism, unspecified

== ENCOUNTER → 2020-08-10 | Outpatient (REF) | payer MEDICARE, OTHER ==
[~2020-08-10] MED LIST changes: +ADV500INH INH; +ALBU8.5H INH; +ALLE1TAB23 PO; +HYDR12.55 PO; +JARD1TAB PO; +LEVO200T4 PO; +LOSA100T50 PO; +LOSA100T8 PO; +METF-838 PO; +MONT10TA10 PO; -MONT10TA4 PO; +OMEP-218 PO; +OMEP-221 PO; +PANT40TA29 PO
[2020-08-10 12:58] LABS: PERCENT SATURATION 2.2 % (13.2-45.0)
== END ==
LOC: M LAB REF 11:58
PROVIDERS: ATTEND Internal Medicine
DX: D50.9 Iron deficiency anemia, unspecified (principal); E11.9 Type 2 diabetes mellitus without complications

== ENCOUNTER → 2020-09-28 | Outpatient (REF) | payer MEDICARE, OTHER ==
[~2020-09-28] MED LIST changes: +FERR324T21 PO; +HYDR12.55 PO; +LOSA100T50 PO; +OMEP-221 PO
[2020-09-28 17:38] LABS: PERCENT SATURATION 31.8 % (13.2-45.0)
== END ==
LOC: M LAB REF 16:41
PROVIDERS: ATTEND Internal Medicine
DX: D50.0 Iron deficiency anemia secondary to blood loss (chronic) (principal)

== ENCOUNTER → 2020-09-28 | Outpatient (REF) | payer MEDICARE, OTHER | LOC: M LAB REF 12:19 | PROVIDERS: ATTEND Internal Medicine | DX: D72.829 Elevated white blood cell count, unspecified (principal); D50.0 Iron deficiency anemia secondary to blood loss (chronic) ==

== ENCOUNTER 2020-09-29 10:36 | Inpatient (IN) | payer MEDICARE, OTHER ==
[~2020-09-29] VITALS: Ht 157.5 cm; Wt 75.8 kg
[~2020-09-29 10:36] MED LIST changes: -FERR324T21 PO
[2020-09-29 12:30] LABS: BASO # 0.1 10^3/uL (0.0-0.2); BASO % 0.5 % (0.0-1.0); EOS # 0.1 10^3/uL (0.0-0.5); EOS % 0.7 % (0.0-3.0); HEMATOCRIT 32.2 % (36.0-47.0); HEMOGLOBIN 9.6 g/dl (12.0-15.5); LYMPH # 3.3 10^3/uL (1.5-5.0); LYMPH % 18.3 % (24.0-44.0); MEAN CORPUSCULAR HEMOGLOBIN 26.2 pg (27.0-33.0); MEAN CORPUSCULAR HGB CONC 29.8 g/dl (32.0-36.5); MONO # 0.8 10^3/uL (0.0-0.8); MONO % 4.2 % (2.0-8.0); NEUTROPHILS # 13.6 10^3/uL (1.5-8.5); NEUTROPHILS % 75.7 % (36.0-66.0); PLATELET COUNT, AUTOMATED 299 10^3/uL (150-450); RED BLOOD COUNT 3.66 10^6/uL (4.00-5.40)
[2020-09-29] MEDS: GASTROGRAFIN SOLUTION 30ML PO SCH ×2 (12:30→13:35)
[2020-09-29 12:50] LABS: ALBUMIN 3.4 GM/DL (3.2-5.2); ALT/SGPT 54 U/L (12-78); BILIRUBIN,DIRECT 0.2 MG/DL (0.0-0.2); BILIRUBIN,TOTAL 0.4 MG/DL (0.2-1.0); BLOOD UREA NITROGEN 24 MG/DL (7-18); CALCIUM LEVEL 9.3 MG/DL (8.8-10.2); CARBON DIOXIDE LEVEL 31 MEQ/L (21-32); CHLORIDE LEVEL 100 MEQ/L (98-107); CREATININE FOR GFR 0.85 MG/DL (0.55-1.30); GLOMERULAR FILTRATION RATE > 60.0 (>45); GLUCOSE, FASTING 172 MG/DL (70-100); LIPASE 57 U/L (73-393); POTASSIUM SERUM 4.7 MEQ/L (3.5-5.1); SODIUM LEVEL 138 MEQ/L (136-145); TOTAL PROTEIN 6.5 GM/DL (6.4-8.2)
[2020-09-29] MEDS ORDERED: ISOVUE-370 76% 100ML VIAL As Ordered ONE (13:20)
--- NOTE | 2020-09-29 14:39 | REP ---
INDICATION: rectal bleeding. COMPARISON: 05/26/2017 TECHNIQUE: Axial contrast-enhanced images from the lung bases to the pubic symphysis using oral and 100 cc Isovue 370 intravenous contrast material. Coronal and sagittal reformations obtained. This CT examination was performed using the following dose reduction techniques: Automated exposure control, adjustment of mA and/or kv according to the patient's size, and the use of iterative reconstruction technique. FINDINGS: Liver includes few subcentimeter hypodensities suggesting cysts as well as similar 1.5 cm hypodense lesion in the caudate lobe again likely cyst. Spleen, pancreas, bilateral adrenal glands and kidneys are normal. Cholelithiasis noted without evidence for acute cholecystitis. The enteric system is without obstruction or acute inflammatory process. Tubular low-density filling defects are identified within small bowel in the pelvis which are nonspecific. These may reflect ingested material, but the bowel itself appears relatively normal (series 201 images 90-103). There is a heterogeneous 4.8 cm partially enhancing lesion in the anterior mid abdomen at the level of the umbilicus (series 201, images 67-82) which represents a new finding and suspicious for malignant focus. No further such lesions are identify a. No significant inflammatory changes or obvious adenopathy. Pelvis demonstrates normal bladder and age-appropriate uterus/adnexa. No ascites. No free air. No intraperitoneal or retroperitoneal adenopathy. Abdominal aorta and vasculature appear normal. Demonstrate advanced degenerative changes with chronic disc space obliteration and anterolisthesis at the L5-S1 level. IMPRESSION: 1. 4.8 cm partially enhancing mass currently identified in the anterior lower abdomen at the level of the umbilicus which is suspicious for malignant focus. A similar/lesion was identified on the 2018 examination within the pelvis adjacent to the uterus which is no longer identified. The possibility of a chronic mobile type mass within the abdomen and pelvis may be considered. However, correlation with history of malignancy and follow-up examination including ultrasound evaluation may be warranted. 2. Somewhat tubular low-density findings within small bowel as noted above are nonspecific and may represent ingested material. Findings are relatively nonsuspicious and the surrounding bowel appears relatively normal. <Electronically signed by Desmond Vivas > 09/29/20 [id number]
--- NOTE | 2020-09-29 15:53 | REP ---
INDICATION: Leukocytosis COMPARISON: 08/12/2020 TECHNIQUE: Portable AP view of the chest FINDINGS: The mediastinum and cardiac silhouette are stable and within normal limits for portable technique. The lung deleon are clear without acute consolidation, effusion, or pneumothorax. Skeletal structures are intact. IMPRESSION: No acute cardiopulmonary process appreciated. <Electronically signed by Desmond Vivas > 09/29/20 [id number]
[2020-09-29] MEDS ORDERED: FERR324T21 PO (16:00)
[2020-09-29] MEDS ORDERED: MOM 30ML SUSPENSION UDC PO PRN (16:20)
[2020-09-29] MEDS ORDERED: NS 1,000 ML IV ONE (16:20)
[2020-09-29] MEDS ORDERED: MAALOX 30 ML SUSP *UDC PO PRN (16:20)
[2020-09-29] MEDS ORDERED: ALBUTEROL 90 MCG/ACT 8GM HFA INHALER INH PRN (16:20)
--- NOTE | 2020-09-29 16:45 | HPEPDOC ---
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 She presents today because she noted bright red blood in her stool for 1 day. Tells me this is happening the past several times she doesn't always present to the hospital when it happens. Tells me she intermittently takes iron and her stools are often black because of it. She denies any weakness or dizziness says she feels well overall op part from the letter her stools. She denies any chest pain or shortness of breath. Denies dysuria. Denies cough or sputum production. Denies fevers or chills. In the emergency department CT abdomen pelvis was obtained and noted a mass in the abdomen imaging was reviewed by surgeon telephone order dispatcher Dr. Park which believes this mass to be in the small intestine and possibly the source of her bleeding. Patient will be admitted for observation dependent on her clinical course she'll either be discharged with follow-up with surgery in the clinic or seen by surgery while inpatient for possible resection of the mass. PAST MEDICAL/SURGICAL HISTORY: Insulin dependent diabetes COPD Hypertension GI bleeding due to due to AVM 2019. Chronic anemia Tubal ligation Right wrist surgery SOCIAL HISTORY: Denies alcohol use Endorses smoking half a pack of cigarettes per day for the past 50 years Denies illicit drug use FAMILY HISTORY: Mother was a diabetic ALLERGIES: Please see below. REVIEW OF SYSTEMS: 10 point review of systems complete all negative otherwise stated in HPI HOME MEDICATIONS: Please see below. PHYSICAL EXAMINATION: Constitutional: Awake and alert, in no apparent distress ENT: Sclera are clear. Mucosa is moist. Respiratory: Lungs CTA bilaterally. No respiratory distress. Cardiovascular: RRR S1 and S2 are normal, no murmur Gastrointestinal: Abdomen is soft, non distended, non tender, BS present. Musculoskeletal: No lower extremity edema. Neurologic: No focal neurological deficit. Mental Status: A&O x3, normal affect Skin: No visible rashes LABORATORY DATA: See below. IMAGING: CT abdomen/pelvis IMPRESSION: 1. 4.8 cm partially enhancing mass currently identified in the anterior lower abdomen at the level of the umbilicus which is suspicious for malignant focus. A similar/lesion was identified on the 2018 examination within the pelvis adjacent to the uterus which is no longer identified. The possibility of a chronic mobile type mass within the abdomen and pelvis may be considered. However, correlation with history of malignancy and follow-up examination including ultrasound evaluation may be warranted. 2. Somewhat tubular low-density findings within small bowel as noted above are nonspecific and may represent ingested material. Findings are relatively nonsuspicious and the surrounding bowel appears relatively normal. MICROBIOLOGY: Please see below. ASSESSMENT/PLAN # GI mass/GI bleed: I discussed the case with Dr. Park surgeon telephone order dispatcher today. The plan is to admit the patient for observation monitor her for signs of more bleeding and monitor her hemoglobin level. If she remains stable she will follow up with surgery in the clinic to arrange for an outpatient surgery to resect the mass. If her hemoglobin significantly drops and she continues to bleed significantly she will be seen by surgery during this hospital stay and t naely may opt to resect the abdominal mass which Dr. Park believes is within the small intestine. She's had extensive workup with GI Dr. Woodward recently had Endoscopy I Don't Have the Reports but She Tells Me That He Noted a Suspicious Mass in the Small Intestine and Was Planning for a CT Abdomen in October. There is no other obvious sites of bleeding so currently working diagnosis is this mass is likely intermittently bleeding. She'll be placed on IV Protonix. H&H will be trended every 6 hours. # Leukocytosis: I suspect this could be from dehydration or reactive. I don't have a suspected source of infection. She has no fever. IV fluid. Follow up for calcitonin. Follow-up chest x-ray and urinalysis. # DM: ISS. Frequent Accu-Cheks. Hypoglycemic precautions. # COPD: Not in exacerbation. Continue home medications and inhalers. # Hypertension: Soft blood pressure hold home medications. Monitor and titrate # Smoker: Counseled to quit. Refused nicotine patch. # DVT prophylaxis: DVTs/SCDs only due to GI bleed A [facility] Hospitalist Vital Signs Vital Signs Date Time Temp Pulse Resp B/P (MAP) Pulse Ox O2 Delivery O2 Flow Rate FiO2 09/29/20 13:51 110 09/29/20 13:45 111/53 (72) 09/29/20 10:36 96.6 18 98 Nasal Cannula 2.0 Laboratory Data Labs 24H Laboratory Tests 2 09/29/20 12:11: Immature Granulocyte % (Auto) 0.6, Neutrophils (%) (Auto) 75.7H, Lymphocytes (%) (Auto) 18.3L, Monocytes (%) (Auto) 4.2, Eosinophils (%) (Auto) 0.7, Basophils (%) (Auto) 0.5, Neutrophils # (Auto) 13.6H, Lymphocytes # (Auto) 3.3, Monocytes # (Auto) 0.8, Eosinophils # (Auto) 0.1, Basophils # (Auto) 0.1, Nucleated Red Blood Cells % (auto) 0.0, Anion Gap 7L, Glomerular Filtration Rate > 60.0, Calcium Level 9.3, Total Bilirubin 0.4, Direct Bilirubin 0.2, Aspartate Amino Transf (AST/SGOT) 32, Alanine Aminotransferase (ALT/SGPT) 54, Alkaline Phosphatase 144H, Total Protein 6.5, Albumin 3.4, Albumin/Globulin Ratio 1.1L, Lipase 57L 09/29/20 12:50: Lactic Acid Level 1.6 CBC/BMP Laboratory Tests 09/29/20 12:11 Home Medications Scheduled Bupropion HCl (Bupropion HCl Sr) 150 Mg Tab, 150 MG PO BID Empagliflozin (Jardiance) 10 Mg Tablet, 10 MG PO DAILY Ferrous Gluconate (Ferrous Gluconate) 324 Mg Tablet, 324 MG PO DAILY Fexofenadine HCl (Fexofenadine HCl) 180 Mg Tablet, 180 MG PO DAILY Hydrochlorothiazide (Hydrochlorothiazide) 12.5 Mg Tablet, 12.5 MG PO DAILY Levothyroxine Sodium (Levothyroxine Sodium) 200 Mcg Tablet, 200 MCG PO QAM Losartan Potassium (Losartan Potassium) 100 Mg Tablet, 100 MG PO DAILY Metformin HCl (Metformin HCl ER) 500 Mg Tab.er.24h, 500 MG PO BIDWM Montelukast Sodium (Montelukast Sodium) 10 Mg Tab, 10 MG PO QHS Omeprazole (Omeprazole) 40 Mg Capsule.dr, 40 MG PO QHS Salmeterol/Fluticasone (Advair 500-50 Diskus) 1 Each Blst.w.dev, 1 PUFF INH BID Scheduled PRN Albuterol Sulfate (Albuterol Sulfate Hfa) 8.5 Gm Hfa.aer.ad, 2 PUFFS INH Q4H PRN for SHORTNESS OF BREATH Allergies Coded Allergies: No Known Allergies (Unverified , 09/08/19) A-FIB/CHADSVASC A-FIB History Current/History of A-Fib/PAF?: No KARTIK KAUFMAN MD Sep 29, 2020 16:45
[2020-09-29] MEDS ORDERED: GLUCAGON INJ 1MG VIAL SC PRN (16:50)
[2020-09-29] MEDS ORDERED: GLUCOSE 4GM CHEW TABLET PO PRN (16:50)
[2020-09-29] MEDS ORDERED: DEXTROSE 50% 50 ML SYRINGE IV PRN (16:50)
[2020-09-29] MEDS: NS 1,000 ML IV SCH ×3 (17:00→23:55)
[2020-09-29 17:06] LABS: HEMATOCRIT 29.7 % (36.0-47.0); HEMOGLOBIN 8.7 g/dl (12.0-15.5)
[2020-09-29] MEDS: HumaLOG INSULIN (NovoLOG) PER UNIT SC SCH ×2 (17:30→21:17)
[2020-09-29] MEDS: SUCRALFATE 1 GM TAB PO SCH (17:30)
[2020-09-29 17:38] LABS: RSV AMPLIFICATION NEGATIVE (NEGATIVE)
[2020-09-29 18:55] VITALS: BP 126/96
[2020-09-29] MEDS: ADVAIR HFA 230/21MCG INHALER INH SCH (20:03)
[2020-09-29] MEDS: DOCUSATE SODIUM 100MG CAPSULE PO SCH (21:00)
[2020-09-29] MEDS: PANTOPRAZOLE 40MG VIAL (C9113 PER 1) IV SCH (21:17)
[2020-09-29] MEDS: buPROPion **SR TABLET** (ZYBAN) 150MG PO SCH (21:17)
[2020-09-29] MEDS: MONTELUKAST 10 MG TAB PO SCH (21:17)
[2020-09-29 22:00] VITALS: BP 100/54
[2020-09-29 23:04] LABS: HEMATOCRIT 23.8 % (36.0-47.0)
[2020-09-29] MEDS ORDERED: FUROSEMIDE 40MG/4ML VIAL (J1940) IV SCH (23:55)
[2020-09-30] VITALS (21 sets, daily range): BP systolic 106–131; BP diastolic 42–78
[2020-09-30] MEDS: LEVOTHYROXINE 100MCG TABLET (0.1MG) PO SCH (05:53)
[2020-09-30 05:58] LABS: HEMATOCRIT 25.2 % (36.0-47.0); HEMOGLOBIN 7.4 g/dl (12.0-15.5); MEAN CORPUSCULAR HEMOGLOBIN 25.3 pg (27.0-33.0); MEAN CORPUSCULAR HGB CONC 29.4 g/dl (32.0-36.5); MEAN CORPUSCULAR VOLUME 86.3 fl (80.0-96.0); PLATELET COUNT, AUTOMATED 223 10^3/uL (150-450); RED BLOOD COUNT 2.92 10^6/uL (4.00-5.40); WHITE BLOOD COUNT 13.7 10^3/uL (4.0-10.0)
[2020-09-30 06:21] LABS: BLOOD UREA NITROGEN 19 MG/DL (7-18); CALCIUM LEVEL 8.4 MG/DL (8.8-10.2); CARBON DIOXIDE LEVEL 32 MEQ/L (21-32); CHLORIDE LEVEL 103 MEQ/L (98-107); CREATININE FOR GFR 0.74 MG/DL (0.55-1.30); GLOMERULAR FILTRATION RATE > 60.0 (>45); GLUCOSE, FASTING 168 MG/DL (70-100); MAGNESIUM LEVEL 2.1 MG/DL (1.8-2.4); SODIUM LEVEL 140 MEQ/L (136-145)
[2020-09-30] MEDS: ADVAIR HFA 230/21MCG INHALER INH SCH ×2 (07:34→20:21)
[2020-09-30] MEDS: DOCUSATE SODIUM 100MG CAPSULE PO SCH ×2 (09:00→20:12)
[2020-09-30 09:15] LABS: HEMATOCRIT 27.9 % (36.0-47.0); HEMOGLOBIN 8.4 g/dl (12.0-15.5)
[2020-09-30] MEDS: HumaLOG INSULIN (NovoLOG) PER UNIT SC SCH ×4 (09:16→20:49)
[2020-09-30] MEDS: SUCRALFATE 1 GM TAB PO SCH ×3 (09:17→17:09)
[2020-09-30] MEDS: buPROPion **SR TABLET** (ZYBAN) 150MG PO SCH ×2 (09:17→20:12)
[2020-09-30] MEDS: PANTOPRAZOLE 40MG VIAL (C9113 PER 1) IV SCH ×2 (09:17→20:12)
[2020-09-30] MEDS: FERROUS GLUCONATE 324 MG TAB PO SCH (09:17)
[2020-09-30 09:20] LABS: APPEARANCE, URINE CLEAR (CLEAR); BACTERIA, URINE AUTO NEGATIVE (NEGATIVE); BILIRUBIN, URINE AUTO NEGATIVE (NEGATIVE); BLOOD, URINE BLOOD NEGATIVE (NEGATIVE); COLOR, URINE YELLOW (YELLOW); GLUCOSE, URINE (UA) AUTO 3+ mg/dL (NEGATIVE); KETONE, URINE AUTO NEGATIVE (NEGATIVE); LEUKOCYTE ESTERASE, URINE AUTO NEGATIVE (NEGATIVE); NITRITE, URINE AUTO NEGATIVE (NEGATIVE); PROTEIN, URINE AUTO NEGATIVE (NEGATIVE); RBC, URINE AUTO 0 /HPF (0-3); SPECIFIC GRAVITY URINE AUTO 1.021 (1.002-1.035); SQUAMOUS EPITHELIAL CELL UR AU 0 /HPF (0-6); UROBILINOGEN, URINE AUTO 0.2 mg/dL (0.0-2.0); WBC, URINE AUTO 0 /HPF (0-3)
--- NOTE | 2020-09-30 12:24 | IPNPDOC ---
Text Note Date of Service The patient was seen on 09/30/20. NOTE Subjective: Patient was seen and examined this morning at bedside. She just completed her second unit of blood. She says she's feeling well. She is happy to report that she hasn't noticed any more bleeding since last night in her stools. She says her stools were brown. She had noticed a tiny spot of blood at one point but nothing like yesterday. There is no acute overnight events reported to me. Patient doesn't feel short of breath or have chest pain. She denies any fevers or chills. She tells me she has a family member coming to visit next week and she prefers to go home today in follow-up at the surgery clinic if possible so she can spend time with her family member. Objective: Constitutional: Awake and alert, in no apparent distress ENT: Sclera are clear. Mucosa is moist. Respiratory: Lungs CTA bilaterally. No respiratory distress. Cardiovascular: RRR S1 and S2 are normal, no murmur Gastrointestinal: Abdomen is soft, non distended, non tender, BS present. Musculoskeletal: No lower extremity edema. Neurologic: No focal neurological deficit. Mental Status: A&O x3, normal affect Skin: No visible rashes CT abdomen/pelvis IMPRESSION: 1. 4.8 cm partially enhancing mass currently identified in the anterior lower abdomen at the level of the umbilicus which is suspicious for malignant focus. A similar/lesion was identified on the 2018 examination within the pelvis adjacent to the uterus which is no longer identified. The possibility of a chronic mobile type mass within the abdomen and pelvis may be considered. However, correlation with history of malignancy and follow-up examination including ultrasound evaluation may be warranted. 2. Somewhat tubular low-density findings within small bowel as noted above are nonspecific and may represent ingested material. Findings are relatively nonsuspicious and the surrounding bowel appears relatively normal. 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 # GI mass/GI bleed: She had essentially no further bleeding since last night. She was likely hemoconcentrated and IVFs given her true hgb level was apparent and was given 2 units of blood. Her hgb improved to 8.4. We will recheck HH later today. If its stable and she has no further bleeding as per plan discussed with surgeon Dr Park, I will discharge her today and have follow up at the surgery clinic to discuss surgical removal of the mass. Should she continue to bleed significantly or her hgb doesn't remain stable I will request for Dr Park to see her during this admission. Continue IV Protonix. # Leukocytosis: I suspect this could be from dehydration or reactive, it did improve with IVFs and no Abx. CXR and UA were ok. She has no fever. Pro calcitonin was <0.25 - antibiotics are discouraged. # DM: ISS. Frequent Accu-Cheks. Hypoglycemic precautions. # COPD: Not in exacerbation. Continue home medications and inhalers. # Hypertension: Normotensive. hold home medications. Monitor and titrate # Smoker: Counseled to quit. Refused nicotine patch. # DVT prophylaxis: DVTs/SCDs only due to GI bleed A [facility] Hospitalist Late entry: Actually her hemoglobin dropped and she continued to have lower GI bleeding. I formally consulted surgery Dr. Park and ordered for transfusion of 2 units of blood. VS,[place], I+O VS, [place], I+O Laboratory Tests 09/29/20 16:45 09/29/20 22:55 09/30/20 05:31 09/30/20 08:50 Vital Signs Date Time Temp Pulse Resp B/P (MAP) Pulse Ox O2 Delivery O2 Flow Rate FiO2 09/30/20 08:36 98.2 113 20 110/54 95 Nasal Cannula 2.0 I&O- Last 24 Hours up to 6 AM 09/30/20 06:00 Intake Total 3740 ml Output Total 600 ml Balance 3140 ml KARTIK KAUFMAN MD Sep 30, 2020 12:23
[2020-09-30 15:01] LABS: HEMOGLOBIN 7.4 g/dl (12.0-15.5)
[2020-09-30] MEDS: ACETAMINOPHEN TAB 650MG DOSE (2X325MG) PO PRN (16:08)
[2020-09-30] MEDS: MONTELUKAST 10 MG TAB PO SCH (20:12)
[2020-09-30] MEDS: OCTREOTIDE ACETATE 100MCG/ML VIAL (J2354 PER 25MCG) IV SCH (23:44)
[2020-09-30] MEDS: NS 1,000 ML IV SCH (23:54)
[2020-10-01] VITALS (16 sets, daily range): BP systolic 94–129; BP diastolic 40–88
[2020-10-01 00:59] LABS: HEMATOCRIT 27.2 % (36.0-47.0); HEMOGLOBIN 8.6 g/dl (12.0-15.5)
[2020-10-01 05:45] LABS: BASO # 0.1 10^3/uL (0.0-0.2); BASO % 0.5 % (0.0-1.0); EOS # 0.2 10^3/uL (0.0-0.5); EOS % 1.3 % (0.0-3.0); HEMOGLOBIN 7.2 g/dl (12.0-15.5); LYMPH # 3.1 10^3/uL (1.5-5.0); LYMPH % 23.3 % (24.0-44.0); MEAN CORPUSCULAR HEMOGLOBIN 27.5 pg (27.0-33.0); MEAN CORPUSCULAR HGB CONC 31.3 g/dl (32.0-36.5); MEAN CORPUSCULAR VOLUME 87.8 fl (80.0-96.0); MONO # 0.6 10^3/uL (0.0-0.8); MONO % 4.7 % (2.0-8.0); NEUTROPHILS % 68.9 % (36.0-66.0); PLATELET COUNT, AUTOMATED 172 10^3/uL (150-450); RED BLOOD COUNT 2.62 10^6/uL (4.00-5.40); WHITE BLOOD COUNT 13.1 10^3/uL (4.0-10.0)
[2020-10-01] MEDS: LEVOTHYROXINE 100MCG TABLET (0.1MG) PO SCH (06:08)
[2020-10-01] MEDS: OCTREOTIDE ACETATE 100MCG/ML VIAL (J2354 PER 25MCG) IV SCH ×3 (06:08→22:17)
[2020-10-01 06:15] LABS: BLOOD UREA NITROGEN 17 MG/DL (7-18); CALCIUM LEVEL 7.6 MG/DL (8.8-10.2); CARBON DIOXIDE LEVEL 32 MEQ/L (21-32); CHLORIDE LEVEL 109 MEQ/L (98-107); CREATININE FOR GFR 0.73 MG/DL (0.55-1.30); GLOMERULAR FILTRATION RATE > 60.0 (>45); GLUCOSE, FASTING 197 MG/DL (70-100); POTASSIUM SERUM 4.5 MEQ/L (3.5-5.1); SODIUM LEVEL 143 MEQ/L (136-145)
--- NOTE | 2020-10-01 07:26 | ECGEPIP ---
[facility] Test Date: 2020-09-30 Pat Name: MICAH OROPEZA Department: Room: [place] [address] Gender: Female Medical Physiologist: FLAKO : 1955 Requested By: KARTIK Briceño Order Number: [id number] Reading MD: Bill Sherman Measurements Intervals [place] Rate: 111 P: 73 MI: 136 QRS: 66 QRSD: 74 T: 54 QT: 354 QTc: 481 Interpretive Statements Sinus tachycardia Low voltage QRS inferoapical Q waves Body habitus versus pulmonary disease Rule out prior infarction. Subtle ST abnormalities 08/10/20 have resolved Electronically Signed on 10-01-2020 7:26:44 EDT by Bill Sherman
[2020-10-01] MEDS: SUCRALFATE 1 GM TAB PO SCH ×3 (07:30→17:30)
[2020-10-01] MEDS: HumaLOG INSULIN (NovoLOG) PER UNIT SC SCH ×4 (07:30→22:12)
[2020-10-01] MEDS: ADVAIR HFA 230/21MCG INHALER INH SCH ×2 (07:35→19:19)
[2020-10-01] MEDS: DOCUSATE SODIUM 100MG CAPSULE PO SCH ×2 (08:03→22:19)
--- NOTE | 2020-10-01 08:04 | IPNPDOC ---
Text Note Date of Service The patient was seen on 10/01/20. NOTE Subjective: Patient was seen and examined this morning at bedside. She tells me that unfortunately last evening she started having bright red blood per rectum again with her stools which has not subsided. Surgery saw her last evening. Plan is for surgery later today. Patient tells me she feels well otherwise. Denies any shortness of breath or chest pain. Denies fevers or chills. Denies nausea or vomiting. Denies any other bleeding from elsewhere. Objective: Constitutional: Awake and alert, in no apparent distress ENT: Sclera are clear. Mucosa is moist. Respiratory: Lungs CTA bilaterally. No respiratory distress. Cardiovascular: RRR S1 and S2 are normal, no murmur Gastrointestinal: Abdomen is soft, non distended, non tender, BS present. Musculoskeletal: No lower extremity edema. Neurologic: No focal neurological deficit. Mental Status: A&O x3, normal affect Skin: No visible rashes CT abdomen/pelvis IMPRESSION: 1. 4.8 cm partially enhancing mass currently identified in the anterior lower abdomen at the level of the umbilicus which is suspicious for malignant focus. A similar/lesion was identified on the 2018 examination within the pelvis adjacent to the uterus which is no longer identified. The possibility of a chronic mobile type mass within the abdomen and pelvis may be considered. However, correlation with history of malignancy and follow-up examination including ultrasound evaluation may be warranted. 2. Somewhat tubular low-density findings within small bowel as noted above are nonspecific and may represent ingested material. Findings are relatively nonsuspicious and the surrounding bowel appears relatively normal. 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 Plan for surgery. # GI mass/GI bleed: her hemoglobin dropped and she continued to have lower GI bleeding. I formally consulted surgery Dr. Park and ordered for transfusion of 2 units of blood. Plan to go to OR later today. Continue IV Protonix. # Leukocytosis: I suspect this could be from dehydration or reactive, it did improve with IVFs and no Abx. CXR and UA were ok. She has no fever. Pro calcitonin was <0.25 - antibiotics are discouraged. # DM: ISS. Frequent Accu-Cheks. Hypoglycemic precautions. # COPD: Not in exacerbation. Continue home medications and inhalers. # Hypertension: Normotensive. hold home medications. Monitor and titrate # Smoker: Counseled to quit. Refused nicotine patch. # DVT prophylaxis: DVTs/SCDs only due to GI bleed A [facility] Hospitalist VS,Julien, I+O VS, Julien, I+O Laboratory Tests 09/30/20 08:50 09/30/20 14:46 10/01/20 00:54 10/01/20 05:27 Vital Signs Date Time Temp Pulse Resp B/P (MAP) Pulse Ox O2 Delivery O2 Flow Rate FiO2 10/01/20 00:40 98.7 109 18 116/54 95 Nasal Cannula 2.0 I&O- Last 24 Hours up to 6 AM 10/01/20 06:00 Intake Total 2650 ml Output Total 560 ml Balance 2090 ml KARTIK KAUFMAN MD Oct 01, 2020 08:04
[2020-10-01] MEDS: FERROUS GLUCONATE 324 MG TAB PO SCH (08:58)
[2020-10-01] MEDS: buPROPion **SR TABLET** (ZYBAN) 150MG PO SCH ×2 (08:58→22:13)
[2020-10-01] MEDS: PANTOPRAZOLE 40MG VIAL (C9113 PER 1) IV SCH ×2 (10:14→22:13)
--- NOTE | 2020-10-01 12:28 | CR ---
CONSULTATION DATE: 09/30/2020 HISTORY OF PRESENT ILLNESS: The patient has been admitted with a recurrence of a GI bleed. Etiology of this has been undetermined with multiple evaluations, lower and upper endoscopies, more importantly a capsule endoscopy was performed within the last couple of weeks, revealed no etiology for this. However, on her workup in the Emergency Room she had a CT scan that showed a lesion probably in the small bowel that was enlarged from previous CT scans in the remote past. In any case, she presents with active GI bleeding again and I am asked to make recommendations concerning etiology/treatment for this. She has had no fevers or chills. No diarrhea. Her major issue is just bright-red blood per rectum. PAST MEDICAL HISTORY: Significant for a history of insulin dependent diabetes mellitus, COPD, hypertension, GI bleeding due to possible AVMs, history of chronic anemia, tubal ligation, wrist surgery, history of smoking. PHYSICAL EXAMINATION: A 64-year-old female who looks stated age. HEENT is unremarkable, atraumatic, normocephalic. Lungs are clear. Heart is regular. Abdomen is soft, nontender, nondistended. IMPRESSION/PLAN: Patient has an abnormal mass in the abdomen next to the umbilicus and the concern at this point is that it may be either a benign or malignant etiology for this bleeding. Given the negative workup thus far and no other etiology found, this apparently being attached to small bowel or being part of the small bowel, I do feel this needs a resection. Will plan on a laparoscopic assisted probable small bowel resection. Patient understands risks as well as benefits associated with operative intervention and would like to proceed with this as scheduled.
[2020-10-01] MEDS ORDERED: fentaNYL 100 MCG/2 ML INJECTION (J3010) As Ordered ONE (15:36)
[2020-10-01] MEDS ORDERED: LIDOCAINE 2% 100MG/5ML SDV (FOR ANES.) As Ordered ONE (15:37)
[2020-10-01] MEDS ORDERED: ROCURONIUM BROMIDE 50 MG/5 ML VIAL As Ordered ONE (15:37)
[2020-10-01] MEDS ORDERED: ONDANSETRON 4MG/2ML VIAL As Ordered ONE (15:37)
[2020-10-01] MEDS ORDERED: dexameTHASONE 4 MG/ML 1ML VIAL (J1100 PER 1MG) As Ordered ONE (15:37)
[2020-10-01] MEDS ORDERED: propofoL 200 MG/20 ML VIAL As Ordered ONE (15:37)
[2020-10-01] MEDS ORDERED: MIDAZOLAM INJ 2MG/2ML VIAL (J2250 PER 1MG) As Ordered ONE (15:37)
[2020-10-01] MEDS ORDERED: BUPIVACAINE HCL 0.25% 10ML VIAL As Ordered ONE (15:48)
[2020-10-01] MEDS ORDERED: BUPIVACAINE LIPOSOME/PF 1.3% 20ML VIAL (13.3MG/ML)(EXPAREL)(C9290 PER1MG) As Ordered ONE (15:48)
[2020-10-01] MEDS ORDERED: BUPIVACAINE/EPIN 0.25% 30 ML VIAL As Ordered ONE (15:48)
[2020-10-01] MEDS ORDERED: ceFAZolin 1GM VIAL (J0690 PER 500MG) As Ordered ONE (16:11)
[2020-10-01] MEDS ORDERED: ACETAMINOPHEN 1000MG 100ML IV BTL (OFIRMEV) (J0131 PER 10MG) As Ordered ONE (16:26)
[2020-10-01] MEDS ORDERED: KETAMINE HCL 200 MG/20 ML VIAL As Ordered ONE (16:29)
[2020-10-01] MEDS ORDERED: SUGAMMADEX SODIUM 500 MG/5 ML VIAL (BRIDION) As Ordered ONE (16:33)
[2020-10-01] MEDS ORDERED: ePHEDrine SULFATE 25 MG/5 ML(5MG/ML) SYRINGE As Ordered ONE (17:05)
[2020-10-01] MEDS ORDERED: LR 1,000 ML IV SCH (17:55)
[2020-10-01] MEDS ORDERED: METOCLOPRAMIDE INJ 10MG/2ML VIAL (J2765 PER 1) IV PRN (17:55)
[2020-10-01] MEDS ORDERED: ONDANSETRON 4MG/2ML VIAL IV PRN (17:55)
[2020-10-01] MEDS ORDERED: fentaNYL 100 MCG/2 ML INJECTION (J3010) IV PRN (17:55)
[2020-10-01] MEDS: HYDROMORPHONE HCL 0.5 MG/ 0.5 ML SYRINGE (J1170 PER 1) IV PRN ×2 (18:06→18:26)
[2020-10-01 19:57] LABS: HEMATOCRIT 30.6 % (36.0-47.0)
[2020-10-01 20:07] LABS: HEMOGLOBIN 9.6 g/dl (12.0-15.5)
[2020-10-01] MEDS: MONTELUKAST 10 MG TAB PO SCH (22:13)
[2020-10-01] MEDS: ACETAMINOPHEN TAB 650MG DOSE (2X325MG) PO PRN (22:30)
[2020-10-02] MEDS: NS 1,000 ML IV SCH ×3 (00:27→21:33)
[2020-10-02 02:00] VITALS: BP 110/58
[2020-10-02 02:06] LABS: HEMATOCRIT 29.6 % (36.0-47.0); HEMOGLOBIN 9.1 g/dl (12.0-15.5)
[2020-10-02] MEDS: ACETAMINOPHEN TAB 650MG DOSE (2X325MG) PO PRN ×3 (05:09→16:57)
[2020-10-02] MEDS: OCTREOTIDE ACETATE 100MCG/ML VIAL (J2354 PER 25MCG) IV SCH ×3 (05:09→21:40)
[2020-10-02 05:18] VITALS: BP 96/58
[2020-10-02] MEDS: LEVOTHYROXINE 100MCG TABLET (0.1MG) PO SCH (05:39)
[2020-10-02] MEDS: SUCRALFATE 1 GM TAB PO SCH ×3 (07:30→17:27)
[2020-10-02] MEDS: ADVAIR HFA 230/21MCG INHALER INH SCH ×2 (07:42→20:51)
[2020-10-02 08:04] LABS: HEMATOCRIT 28.5 % (36.0-47.0); HEMOGLOBIN 8.9 g/dl (12.0-15.5)
--- NOTE | 2020-10-02 08:17 | REPVR ---
PROCEDURE INFORMATION: Exam: XR Chest Exam date and time: 10/02/2020 6:45 AM Age: 64 years old Clinical indication: Other: Hypoxia and hypotension TECHNIQUE: Imaging protocol: XR of the chest. Views: 1 view. COMPARISON: CR Chest, 1 view 09/29/2020 3:43 PM FINDINGS: Lungs: Linear areas of scarring/atelectasis in bilateral lung bases. No focal density to suggest pneumonia. Pleural spaces: Unremarkable. No pleural effusion. No pneumothorax. Heart/Mediastinum: Unremarkable. No cardiomegaly. Vasculature: Mild atherosclerosis. Bones/joints: Unremarkable. IMPRESSION: Linear areas of scarring/atelectasis in bilateral lung bases. No focal density to suggest pneumonia. Electronically signed by: Eneida Bowman On 10/02/2020 08:17:15 AM
[2020-10-02] MEDS: HumaLOG INSULIN (NovoLOG) PER UNIT SC SCH ×4 (08:21→20:46)
[2020-10-02] MEDS: FERROUS GLUCONATE 324 MG TAB PO SCH (08:21)
[2020-10-02] MEDS: PANTOPRAZOLE 40MG VIAL (C9113 PER 1) IV SCH ×2 (08:21→21:34)
[2020-10-02] MEDS: DOCUSATE SODIUM 100MG CAPSULE PO SCH ×2 (08:21→21:34)
[2020-10-02] MEDS: buPROPion **SR TABLET** (ZYBAN) 150MG PO SCH ×2 (08:22→21:34)
--- NOTE | 2020-10-02 09:39 | IPNPDOC ---
Text Note Date of Service The patient was seen on 10/02/20. NOTE No acute events overnight. She said her pain is controlled. Denies any nausea or emesis. No flatus or BM. VSSAF NAD abd - soft, TTP appropriate, nd labs - pending A) 64y/o female s/p SBR for mass P) sips and chips amb in [place] d/c romero IS await return of bowel function Shahram Parra DO VS,Julien, I+O VS, Julien, I+O Laboratory Tests 10/01/20 19:45 10/02/20 02:00 10/02/20 07:51 Vital Signs Date Time Temp Pulse Resp B/P (MAP) Pulse Ox O2 Delivery O2 Flow Rate FiO2 10/02/20 05:18 98.5 96 16 96/58 (71) 90 Nasal Cannula 3.0 10/01/20 19:40 40 I&O- Last 24 Hours up to 6 AM 10/02/20 05:59 Intake Total 1890 ml Output Total 1125 ml Balance 765 ml CAREN PARRA DO Oct 02, 2020 09:39
[2020-10-02 10:00] VITALS: BP 94/52
--- NOTE | 2020-10-02 11:40 | IPNPDOC ---
Text Note Date of Service The patient was seen on 10/02/20. NOTE Subjective: Patient was seen and examined this morning at bedside. She feels the surgery went well yesterday she's feeling good today. She was seen by the surgery team this morning and was told to have sips and chips only today and possibly attempt clear liquid diet tomorrow. She says her surgical incision pain is controlled. She was in good spirits speaking on the phone with a family member. She denies any bowel movements yet. Objective: Constitutional: Awake and alert, in no apparent distress ENT: Sclera are clear. Mucosa is moist. Respiratory: Lungs CTA bilaterally. No respiratory distress. Cardiovascular: RRR S1 and S2 are normal, no murmur Gastrointestinal: Abdomen is soft, non distended, non tender, BS present. Dressing on laparoscopic incision sites. Musculoskeletal: No lower extremity edema. Neurologic: No focal neurological deficit. Mental Status: A&O x3, normal affect Skin: No visible rashes CT abdomen/pelvis IMPRESSION: 1. 4.8 cm partially enhancing mass currently identified in the anterior lower abdomen at the level of the umbilicus which is suspicious for malignant focus. A similar/lesion was identified on the 2018 examination within the pelvis adjacent to the uterus which is no longer identified. The possibility of a chronic mobile type mass within the abdomen and pelvis may be considered. However, correlation with history of malignancy and follow-up examination including ultrasound evaluation may be warranted. 2. Somewhat tubular low-density findings within small bowel as noted above are nonspecific and may represent ingested material. Findings are relatively nonsuspicious and the surrounding bowel appears relatively normal. 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 Plan for surgery. # GI mass/GI bleed: s/p resection of mass seen on CT on 10/02/20. Suspected to be the source of her GI bleeding. HH stable. Recs per surgery. Sips today. Continue IV Protonix. # Leukocytosis: I suspect this could be from dehydration or reactive, it did improve with IVFs and no Abx. CXR and UA were ok. She has no fever. Pro calcitonin was <0.25 - antibiotics are discouraged. This mornings CBC is pending. # DM: ISS. Frequent Accu-Cheks. Hypoglycemic precautions. # COPD: Not in exacerbation. Continue home medications and inhalers. # Hypertension: Normotensive. hold home medications. Monitor and titrate # Smoker: Counseled to quit. Refused nicotine patch. # DVT prophylaxis: DVTs/SCDs only due to GI bleed A [facility] Hospitalist VS,Julien, I+O VS, Julien, I+O Laboratory Tests 10/01/20 19:45 10/02/20 02:00 10/02/20 07:51 Vital Signs Date Time Temp Pulse Resp B/P (MAP) Pulse Ox O2 Delivery O2 Flow Rate FiO2 10/02/20 05:18 98.5 96 16 96/58 (71) 90 Nasal Cannula 3.0 10/01/20 19:40 40 I&O- Last 24 Hours up to 6 AM 10/02/20 06:00 Intake Total 2410 ml Output Total 1225 ml Balance 1185 ml KARTIK KAUFMAN MD Oct 02, 2020 11:40
[2020-10-02 12:19] LABS: HEMATOCRIT 26.8 % (36.0-47.0); HEMOGLOBIN 8.1 g/dl (12.0-15.5); MEAN CORPUSCULAR HEMOGLOBIN 27.2 pg (27.0-33.0); MEAN CORPUSCULAR HGB CONC 30.2 g/dl (32.0-36.5); MEAN CORPUSCULAR VOLUME 89.9 fl (80.0-96.0); PLATELET COUNT, AUTOMATED 160 10^3/uL (150-450); RED BLOOD COUNT 2.98 10^6/uL (4.00-5.40); WHITE BLOOD COUNT 16.3 10^3/uL (4.0-10.0)
[2020-10-02 12:49] LABS: BLOOD UREA NITROGEN 14 MG/DL (7-18); CALCIUM LEVEL 7.7 MG/DL (8.8-10.2); CARBON DIOXIDE LEVEL 28 MEQ/L (21-32); CHLORIDE LEVEL 112 MEQ/L (98-107); CREATININE FOR GFR 0.75 MG/DL (0.55-1.30); GLOMERULAR FILTRATION RATE > 60.0 (>45); GLUCOSE, FASTING 117 MG/DL (70-100); POTASSIUM SERUM 3.9 MEQ/L (3.5-5.1); SODIUM LEVEL 146 MEQ/L (136-145)
[2020-10-02 14:26] LABS: HEMATOCRIT 27.1 % (36.0-47.0); HEMOGLOBIN 8.2 g/dl (12.0-15.5)
[2020-10-02 15:22] VITALS: BP 112/60
[2020-10-02 18:42] VITALS: BP 119/57
[2020-10-02 20:06] LABS: HEMATOCRIT 28.5 % (36.0-47.0); HEMOGLOBIN 8.6 g/dl (12.0-15.5)
[2020-10-02] MEDS: MONTELUKAST 10 MG TAB PO SCH (21:34)
[2020-10-02 22:00] VITALS: BP 114/65
[2020-10-03] MEDS: ACETAMINOPHEN TAB 650MG DOSE (2X325MG) PO PRN (00:59)
[2020-10-03 01:50] LABS: HEMATOCRIT 27.6 % (36.0-47.0); HEMOGLOBIN 8.2 g/dl (12.0-15.5)
[2020-10-03 06:00] VITALS: BP 108/55
[2020-10-03] MEDS: OCTREOTIDE ACETATE 100MCG/ML VIAL (J2354 PER 25MCG) IV SCH ×3 (06:01→21:22)
[2020-10-03] MEDS: LEVOTHYROXINE 100MCG TABLET (0.1MG) PO SCH (06:02)
[2020-10-03 06:40] LABS: HEMATOCRIT 27.9 % (36.0-47.0); HEMOGLOBIN 8.1 g/dl (12.0-15.5)
[2020-10-03] MEDS: NS 1,000 ML IV SCH (07:11)
[2020-10-03] MEDS: ADVAIR HFA 230/21MCG INHALER INH SCH ×2 (07:30→20:47)
--- NOTE | 2020-10-03 07:49 | IPNPDOC ---
Text Note Date of Service The patient was seen on 10/03/20. NOTE No acute events overnight. She said her pain is controlled. Denies any nausea or emesis. She is passing lots of flatus, no BM yet. VSSAF NAD abd - soft, TTP appropriate, nd labs - pending A) 64y/o female s/p SBR for mass P) clear liquid diet amb in [place] IS await return of bowel function Shahram Parra DO VS,Julien, I+O VS, Julien, I+O Laboratory Tests 10/02/20 07:51 10/02/20 11:59 10/02/20 14:08 10/02/20 19:56 10/03/20 01:41 10/03/20 06:05 Vital Signs Date Time Temp Pulse Resp B/P (MAP) Pulse Ox O2 Delivery O2 Flow Rate FiO2 10/03/20 06:00 97.0 85 17 108/55 (72) 92 Nasal Cannula 2.0 10/01/20 19:40 40 I&O- Last 24 Hours up to 6 AM 10/03/20 05:59 Intake Total 2470 ml Output Total 650 ml Balance 1820 ml CAREN PARRA DO Oct 03, 2020 07:49
[2020-10-03] MEDS: SUCRALFATE 1 GM TAB PO SCH ×3 (09:08→18:02)
[2020-10-03] MEDS: PANTOPRAZOLE 40MG VIAL (C9113 PER 1) IV SCH ×2 (09:08→21:22)
[2020-10-03] MEDS: buPROPion **SR TABLET** (ZYBAN) 150MG PO SCH ×2 (09:08→21:23)
[2020-10-03] MEDS: HumaLOG INSULIN (NovoLOG) PER UNIT SC SCH ×4 (09:09→21:00)
[2020-10-03] MEDS: FERROUS GLUCONATE 324 MG TAB PO SCH (09:09)
[2020-10-03] MEDS: DOCUSATE SODIUM 100MG CAPSULE PO SCH ×2 (09:10→21:23)
[2020-10-03] MEDS: KCL 20MEQ IN 0.45NS 1000ML 1,000 ML IV SCH ×2 (12:30→23:59)
[2020-10-03 14:00] VITALS: BP 115/58
[2020-10-03] MEDS: MONTELUKAST 10 MG TAB PO SCH (21:23)
[2020-10-03 22:00] VITALS: BP 114/58
[2020-10-04 06:00] VITALS: BP 124/60
[2020-10-04] MEDS: LEVOTHYROXINE 100MCG TABLET (0.1MG) PO SCH (06:24)
[2020-10-04] MEDS: OCTREOTIDE ACETATE 100MCG/ML VIAL (J2354 PER 25MCG) IV SCH ×3 (06:24→22:17)
[2020-10-04 06:29] LABS: HEMATOCRIT 28.1 % (36.0-47.0); HEMOGLOBIN 8.3 g/dl (12.0-15.5); MEAN CORPUSCULAR HEMOGLOBIN 27.8 pg (27.0-33.0); MEAN CORPUSCULAR HGB CONC 29.5 g/dl (32.0-36.5); PLATELET COUNT, AUTOMATED 165 10^3/uL (150-450); RED BLOOD COUNT 2.99 10^6/uL (4.00-5.40); WHITE BLOOD COUNT 9.3 10^3/uL (4.0-10.0)
[2020-10-04 06:48] LABS: BLOOD UREA NITROGEN 8 MG/DL (7-18); CALCIUM LEVEL 7.6 MG/DL (8.8-10.2); CARBON DIOXIDE LEVEL 30 MEQ/L (21-32); CHLORIDE LEVEL 110 MEQ/L (98-107); CREATININE FOR GFR 0.68 MG/DL (0.55-1.30); GLOMERULAR FILTRATION RATE > 60.0 (>45); GLUCOSE, FASTING 118 MG/DL (70-100); POTASSIUM SERUM 3.8 MEQ/L (3.5-5.1); SODIUM LEVEL 143 MEQ/L (136-145)
[2020-10-04] MEDS: ADVAIR HFA 230/21MCG INHALER INH SCH ×2 (07:19→20:21)
[2020-10-04] MEDS: PANTOPRAZOLE 40MG VIAL (C9113 PER 1) IV SCH ×2 (08:20→20:36)
[2020-10-04] MEDS: SUCRALFATE 1 GM TAB PO SCH ×3 (08:21→18:46)
[2020-10-04] MEDS: DOCUSATE SODIUM 100MG CAPSULE PO SCH ×2 (08:21→20:36)
[2020-10-04] MEDS: buPROPion **SR TABLET** (ZYBAN) 150MG PO SCH ×2 (08:21→20:36)
[2020-10-04] MEDS: HumaLOG INSULIN (NovoLOG) PER UNIT SC SCH ×4 (08:21→20:37)
[2020-10-04] MEDS: FERROUS GLUCONATE 324 MG TAB PO SCH (08:21)
--- NOTE | 2020-10-04 08:48 | IPNPDOC ---
Text Note Date of Service The patient was seen on 10/04/20. NOTE No acute events overnight. She denies pain, nausea, emesis, and fevers. She is passing lots of flatus, no BM yet. VSSAF NAD abd - soft, NT, nd labs - below A) 64y/o female s/p SBR for mass P) reg diet amb in [place] IS await return of bowel function likely d/c home tomorrow Shahram Parra DO VS,Julien, I+O VS, Julien, I+O Laboratory Tests 10/04/20 06:05 Vital Signs Date Time Temp Pulse Resp B/P (MAP) Pulse Ox O2 Delivery O2 Flow Rate FiO2 10/04/20 06:00 98.0 84 18 124/60 (81) 93 Nasal Cannula 3.0 10/01/20 19:40 40 I&O- Last 24 Hours up to 6 AM 10/04/20 05:59 Intake Total 2810 ml Output Total 1295 ml Balance 1515 ml CAREN PARRA DO Oct 04, 2020 08:48
--- NOTE | 2020-10-04 11:14 | IPN ---
PROGRESS NOTE DATE: 10/04/2020 SUBJECTIVE: Deanne is seen [facility], doing well, and feels better. She uses oxygen 2 liters nasal cannula at home chronically. She is not short of breath. Dr. Parra is managing her postop care and expects discharge tomorrow. Pathology is still pending from the abdominal mass. OBJECTIVE: VITAL SIGNS: Stable. LUNGS: Clear. HEART: Regular rhythm. ABDOMEN: Soft and nondistended. Mildly tender around the incision. EXTREMITIES: No peripheral edema. LABORATORY DATA: Hemoglobin stable at 8.3. Electrolytes unremarkable. IMPRESSION AND PLAN: 1. Abdominal mass. Pathology is pending. 2. Lower gastrointestinal (GI) bleed. CBC is pending. 3. Chronic obstructive pulmonary disease (COPD). Continue O2 at 2 liters via nasal cannula. She will go home with this. Her other medical problems are stable. Anticipate discharge tomorrow.
--- NOTE | 2020-10-04 11:14 | IPN ---
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 She had had resection of a lower abdominal mass that was causing lower GI bleeding. She was seen postoperatively. Pathology was pending. She was not having any shortness of breath and her vital signs were stable. OBJECTIVE: VITAL SIGNS: Stable. LUNGS: Clear. HEART: Regular rhythm. ABDOMEN: Soft and mildly distended. EXTREMITIES: No peripheral edema. IMPRESSION AND PLAN: Stable postop day #2. Awaiting pathology. Stable CBC.
--- NOTE | 2020-10-04 12:14 | IPN ---
PROGRESS NOTE DATE: 10/03/2020 [facility] being admitted by surgeon status post resection of a inferior lower abdominal mass that we suspect to be causing gastrointestinal (GI) bleeding. Pathology is pending. Diet is being advanced, and she feels better slowly on a daily basis. No fever, chills, nausea, vomiting. She has been afebrile. Vital signs stable. Lungs clear. Heart regular rate and rhythm. Abdomen soft. Incision looks clean, mildly tender. Nontender. Good bowel wounds. LABORATORY DATA: Hemoglobin is 8.1. I do not see a white count today. Electrolytes unremarkable. Sodium is slowly rising. Minimally elevated today. IMPRESSION: 1. Gastrointestinal (GI) bleed. 2. Acute blood loss anemia. Hemoglobin and hematocrit are stable. We will start checking these daily. Continue intravenous (IV) Protonix. 3. GI mass. Pathology is pending. 4. Leukocytosis. No white count drawn today, just the hemoglobin. CBC ordered for the morning. 5. Diabetes. Fingerstick coverage ordered. 6. Hypertension. Blood pressure medications are on hold, and blood pressure remains well controlled. We may have to restart these if pressure becomes elevated, but currently it is in the 100-120 range.
[2020-10-04 14:00] VITALS: BP 115/60
[2020-10-04] MEDS: MONTELUKAST 10 MG TAB PO SCH (20:36)
[2020-10-04 22:00] VITALS: BP 139/66
[2020-10-05 06:00] VITALS: BP 128/60
[2020-10-05] MEDS: SUCRALFATE 1 GM TAB PO SCH (06:31)
[2020-10-05] MEDS: LEVOTHYROXINE 100MCG TABLET (0.1MG) PO SCH (06:31)
[2020-10-05] MEDS: OCTREOTIDE ACETATE 100MCG/ML VIAL (J2354 PER 25MCG) IV SCH (06:31)
[2020-10-05 06:35] LABS: HEMATOCRIT 29.2 % (36.0-47.0); HEMOGLOBIN 8.7 g/dl (12.0-15.5); MEAN CORPUSCULAR HEMOGLOBIN 27.1 pg (27.0-33.0); MEAN CORPUSCULAR HGB CONC 29.8 g/dl (32.0-36.5); PLATELET COUNT, AUTOMATED 171 10^3/uL (150-450); RED BLOOD COUNT 3.21 10^6/uL (4.00-5.40); WHITE BLOOD COUNT 8.6 10^3/uL (4.0-10.0)
[2020-10-05 07:13] LABS: BLOOD UREA NITROGEN 10 MG/DL (7-18); CARBON DIOXIDE LEVEL 30 MEQ/L (21-32); CHLORIDE LEVEL 119 MEQ/L (98-107); CREATININE FOR GFR 0.83 MG/DL (0.55-1.30); GLOMERULAR FILTRATION RATE > 60.0 (>45); GLUCOSE, FASTING 144 MG/DL (70-100); POTASSIUM SERUM 3.8 MEQ/L (3.5-5.1); SODIUM LEVEL 159 MEQ/L (136-145)
[2020-10-05] MEDS: ADVAIR HFA 230/21MCG INHALER INH SCH (07:25)
[2020-10-05] MEDS: HumaLOG INSULIN (NovoLOG) PER UNIT SC SCH (08:25)
[2020-10-05] MEDS: DOCUSATE SODIUM 100MG CAPSULE PO SCH (08:30)
[2020-10-05] MEDS: FERROUS GLUCONATE 324 MG TAB PO SCH (08:30)
[2020-10-05] MEDS: PANTOPRAZOLE 40MG VIAL (C9113 PER 1) IV SCH (08:30)
[2020-10-05] MEDS: buPROPion **SR TABLET** (ZYBAN) 150MG PO SCH (08:30)
--- NOTE | 2020-10-05 08:57 | IPNPDOC ---
Text Note Date of Service The patient was seen on 10/05/20. NOTE No acute events overnight. She denies pain, nausea, emesis, and fevers. She is passing lots of flatus, and has had 3 large BMs. Tolerating reg diet. VSSAF NAD abd - soft, NT, nd labs - below A) 64y/o female s/p SBR for mass P) reg diet amb in [place] IS stable for d/c from surgical standpoint Shahram Parra DO VS,Fishbone, I+O VS, Fishbone, I+O Laboratory Tests 10/05/20 06:11 Vital Signs Date Time Temp Pulse Resp B/P (MAP) Pulse Ox O2 Delivery O2 Flow Rate FiO2 10/05/20 06:00 98.1 88 17 128/60 (82) 92 Nasal Cannula 2.0 10/01/20 19:40 40 I&O- Last 24 Hours up to 6 AM 10/05/20 06:00 Intake Total 1675 ml Output Total 1025 ml Balance 650 ml CAREN PARRA DO Oct 05, 2020 08:57
[2020-10-05 09:34] LABS: BLOOD UREA NITROGEN 10 MG/DL (7-18); CALCIUM LEVEL 7.8 MG/DL (8.8-10.2); CARBON DIOXIDE LEVEL 29 MEQ/L (21-32); CHLORIDE LEVEL 107 MEQ/L (98-107); CREATININE FOR GFR 0.86 MG/DL (0.55-1.30); GLOMERULAR FILTRATION RATE > 60.0 (>45); GLUCOSE, FASTING 206 MG/DL (70-100); POTASSIUM SERUM 3.4 MEQ/L (3.5-5.1); SODIUM LEVEL 141 MEQ/L (136-145)
[2020-10-05] MEDS ORDERED: POTASSIUM CHLORIDE 10 MEQ SR TABLET PO ONE (10:30)
--- NOTE | 2020-10-05 12:15 | DSES ---
DISCHARGE SUMMARY DATE OF ADMISSION: 09/29/2020 DATE OF DISCHARGE: 10/05/2020 PRINCIPAL DIAGNOSIS: Low gastrointestinal bleed with acute blood loss anemia secondary to abdominal mass causing hemorrhage. SECONDARY DIAGNOSES: 1. Chronic obstructive pulmonary disease on chronic supplemental oxygen at home. 2. Type-2 diabetes now requiring Insulin. 3. Hypertensive heart disease. HISTORY: Patient admitted with lower GI bleed, acute blood loss anemia. CT of abdomen and pelvis in the Emergency Room showed a mass apparently in the small intestine. Details are in the history and physical from admission. HOSPITAL COURSE: I assumed the patient's care a few days before discharge. Therefore she had already had laparoscopic assisted small bowel resection. Postop course was uncomplicated. She was transfused 6 units of blood during the course of her admission. Hemoglobin remained stable postoperatively. Pathology is still pending. On the day of discharge she is resting comfortably. Her blood pressure is 128/70, O2 saturation 925 on 2 liters. She is alert, conversant, eager to go home. HEENT unremarkable. No JVD. Lungs have decreased breath sounds but clear. Heart regular rate and rhythm. Abdomen is soft and nontender. Incisions are healing well. She had three bowel movements yesterday. EXTREMITIES: No peripheral edema. LABS: Today white count is 8.6, hemoglobin is 8.7 which is improved over the last few days. Platelets 171. Sodium 141, potassium 3.4 (initial sodium today was 159. I suspect a lab error Stat repeat shows it is normal at 141 which is more consistent with her clinical status and her previous labs). Blood sugar is 206. Fingersticks have generally been below 200. Her pathology is still pending from her procedure. DISPOSITION: The patient is discharged home improved in stable condition. She is cleared for discharge by surgery. Case was discussed with Dr. Parra today. PLAN: She will be discharged home to follow up with her primary care provider in a week. Activity as tolerated. DISCHARGE MEDICATIONS: 1. Albuterol inhaler as needed. 2. Wellbutrin 150 mg twice a day. 3. Jardiance 10 mg daily. 4. Ferrous gluconate 324 mg daily. 5. Fexofenadine 180 mg daily. 6. Levothyroxine 200 mcg daily. 7. Losartan 100 mg daily. 8. Metformin 500 mg twice a day. 9. Singulair 10 mg daily. 10. Omeprazole 40 mg daily. 11. Advair 500/50 one inhalation twice a day. Hydrochlorothiazide was discontinued upon discharge. Pathology is pending and will need to be reviewed in followup appointment. She will follow up with Surgery per their office.
--- NOTE | 2020-10-27 12:48 | RO ---
OPERATIVE NOTE DATE OF OPERATION: 09/29/2020 PREOPERATIVE DIAGNOSIS: GI bleed secondary to possible small bowel lesion. POSTOPERATIVE DIAGNOSIS: GI bleed secondary to possible small bowel lesion. PROCEDURE: Laparoscopic small bowel resection. SURGEON: Urban Park Jr., MD. TRAINING SYSTEMS OFFICER: ANESTHESIA: EBL: Minimal. FLUIDS: Crystalloid. BRIEF PROCEDURE SUMMARY: Patient was taken to the operating room and was given general anesthesia. After adequate anesthesia and preoperative antibiotics were given, the patient was prepped and draped in the usual sterile fashion. Next, an epigastric incision was made with a skin knife. Blunt dissection was carried down to fascia. Veress needle inserted into the abdominal cavity, and 5 mm trocar was placed after insufflating to 15 mmHg. Additional 5 mm trocars were placed, and the small bowel was run from the ligament of Treitz proximally and also from the mid small bowel distally. Eventually I was able to find the small bowel lesion. Once I was able to find this, isolate it, and make sure that it was able to be mobilize to the midline, a midline incision was created, and the small bowel was delivered through a midline incision. Once it was delivered, the small bowel was resected with JESSICA staplers. The mesentery was taken with clamps and ligated with Vicryl ties, and a [id number] anastomosis with JESSICA staplers was created. The enterotomy was resected with a JESSICA stapler as well. This was returned to the abdominal cavity. The abdomen was copiously irrigated until clear, and all trocars were removed under direct visualization. #1 Vicryl was used to close the fascia, and paula were used to approximate the skin. Dry sterile dressing was applied, and the patient was brought to the recovery room awake, alert, and hemodynamically stable. Sponge and needle counts correct x2.
== END 2020-10-05 12:00 | disposition home or self-care (01) | DRG 330 ==
LOC: M ED 10:36 → M ED INP 10:37 → ENRESERV 18:05 → M MSPAV 18:58 → OBSVTOIN 09-30 15:09
PROVIDERS: ADMIT Family Medicine; ATTEND Family Medicine
PROC: 0DT84ZZ Resection of Small Intestine, Percutaneous Endoscopic Approach (ICD-10-PCS; principal; 2020-09-29)
PROC: 30233N1 Transfusion of Nonautologous Red Blood Cells into Peripheral Vein, Percutaneous Approach (ICD-10-PCS; 2020-09-30)
DX: C49.A3 Gastrointestinal stromal tumor of small intestine (principal); D62 Acute posthemorrhagic anemia; K62.5 Hemorrhage of anus and rectum; J44.9 Chronic obstructive pulmonary disease, unspecified; E11.9 Type 2 diabetes mellitus without complications; I11.9 Hypertensive heart disease without heart failure; Z79.899 Other long term (current) drug therapy; Z79.4 Long term (current) use of insulin; F17.210 Nicotine dependence, cigarettes, uncomplicated

== ENCOUNTER → 2021-04-28 | Outpatient (CLI) | payer MEDICARE, OTHER ==
[~2021-04-28] MED LIST changes: +FERR324T21 PO; +GASTROGRAFIN SOLUTION 30ML (Q9963) As Ordered ONE; +IMAT400T PO; +ISOVUE-370 76% 100ML VIAL As Ordered ONE; +LOSA100T45 PO; -LOSA100T50 PO; +LOSA50TA28 PO; -LOSA50TA88 PO; -MONT10TA10 PO; +MONT10TA97 PO; +OMEP-173 PO; -OMEP-218 PO; -OMEP-221 PO; +OMEP40CA5 PO
== END ==
LOC: M RAD 12:16
PROVIDERS: ATTEND Internal Medicine Medical Oncology
DX: C49.A0 Gastrointestinal stromal tumor, unspecified site (principal)
CPT/HCPCS: 74177; Q9963; Q9967

== ENCOUNTER → 2021-08-11 | Outpatient (CLI) | payer MEDICARE, OTHER ==
[~2021-08-11] MED LIST changes: -GASTROGRAFIN SOLUTION 30ML (Q9963) As Ordered ONE; -ISOVUE-370 76% 100ML VIAL As Ordered ONE
== END ==
LOC: M WHC 11:14
PROVIDERS: ATTEND Internal Medicine
DX: E04.2 Nontoxic multinodular goiter (principal)

== ENCOUNTER → 2021-11-12 | Outpatient (CLI) | payer MEDICARE, OTHER ==
[~2021-11-12] MED LIST changes: +GASTROGRAFIN SOLUTION 30ML (Q9963) As Ordered ONE; +ISOVUE-370 76% 100ML VIAL As Ordered ONE; +LEVO150C PO
== END ==
LOC: M RAD 08:26
PROVIDERS: ATTEND Internal Medicine Medical Oncology
DX: C49.A0 Gastrointestinal stromal tumor, unspecified site (principal)
CPT/HCPCS: 74177; Q9963; Q9967

== ENCOUNTER → 2023-02-07 | Outpatient (REF) | payer MEDICARE, OTHER ==
[~2023-02-07] MED LIST changes: -GASTROGRAFIN SOLUTION 30ML (Q9963) As Ordered ONE; -ISOVUE-370 76% 100ML VIAL As Ordered ONE; -LOSA100T45 PO; +LOSA100T46 PO
[2023-02-08 18:19] LABS: PERCENT SATURATION 5.4 % (13.2-45.0)
[2023-02-08 18:20] LABS: FERRITIN 9.8 NG/ML (7.3-270.7)
== END ==
LOC: M LAB REF 16:38
PROVIDERS: ATTEND Internal Medicine
DX: D64.9 Anemia, unspecified (principal)

== ENCOUNTER → 2024-02-27 | Outpatient (REF) | payer MEDICARE, OTHER ==
[~2024-02-27] MED LIST changes: -ALLE1TAB23 PO; +FEXO-63 PO
[2024-02-27 19:11] LABS: FERRITIN 32.3 NG/ML (7.3-270.7); PERCENT SATURATION 21.5 % (13.2-45.0)
== END ==
LOC: M LAB REF 16:42
PROVIDERS: ATTEND Internal Medicine
DX: D64.9 Anemia, unspecified (principal)